=== PATIENT | female | born 1935 | race Caucasian/White ===

== ENCOUNTER → 2016-07-02 | Outpatient (CLI) | payer MEDICARE ==
[2016-07-02 09:57] LABS: Anisocytosis Slight; Basophils % (A) 0 %; CH 33.2; CHCM 29.4; Calcium 9.2 mg/dL (8.4-10.2); Eosinophils # (A) 0.1 k/uL (0-0.7); Eosinophils % (A) 1 %; HDW 2.79; HGB 8.8 gm/dL (11.4-16.0); Hypochromasia Marked; Luc # (Auto) 0.17; Luc % (Auto) 3; Lymphocytes # (A) 1.1 k/uL (1.0-4.8); Lymphocytes % (A) 17 %; MCH 33.4 pg (25.0-35.0); MCHC 29.5 g/dL (31.0-37.0); MCV 113.2 fL (80.0-100.0); Macrocytosis Marked; Mean Platelet Volume 9.4; Monocytes # (A) 0.4 k/uL (0-1.0); Monocytes % (A) 6 %; Neutrophils # (A) 4.9 k/uL (1.3-7.7); Neutrophils % (A) 74 %; Potassium 4.9 mmol/L (3.5-5.1); RBC 2.65 m/uL (3.80-5.40); Total Bilirubin 0.7 mg/dL (0.2-1.3); WBC 6.6 k/uL (3.8-10.6); WBC (Perox) 6.64
[2016-07-02 11:24] LABS: Erythrocyte Sedimentation Rate 40 mm/hr (0-20)
== END ==
LOC: LABWHC1 09:22
PROVIDERS: ATTEND Internal Medicine Geriatric Medicine
DX: M06.9 Rheumatoid arthritis, unspecified (principal)
CPT/HCPCS: 36415; 80053; 85025; 85652

== ENCOUNTER → 2016-07-04 | Outpatient (CLI) | payer MEDICARE, OTHER ==
--- NOTE | 2016-07-04 12:56 | CT ---
EXAMINATION TYPE: CT sinus wo con DATE OF EXAM: 07/04/2016 12:48 PM COMPARISON: NONE HISTORY: Chronic sinusitis CT DLP: 590.10 mGycm Automated exposure control for dose reduction was used. FINDINGS: Visualized intracranial structures are unremarkable. The soft tissues are normal. There is been a previous anterior ethmoidectomy on the left. There has been a previous Méndez-Suman p rocedure on the left. There is some minimal mucoperiosteal thickening involving the inferior aspect o f both maxillary sinuses. The right infundibulum is patent. No bony destructive lesion is seen. IMPRESSION: 1. POSTSURGICAL CHANGE. 2. 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
== END | disposition home or self-care (01) ==
LOC: RADCTMAIN 12:23
PROVIDERS: ATTEND Otolaryngology
DX: J34.89 Other specified disorders of nose and nasal sinuses (principal)
CPT/HCPCS: 70486

== ENCOUNTER → 2016-09-09 | Outpatient (CLI) | payer MEDICARE, OTHER ==
[2016-09-09 13:05] LABS: Calcium 8.8 mg/dL (8.4-10.2); Potassium 4.3 mmol/L (3.5-5.1); Total Bilirubin 0.4 mg/dL (0.2-1.3); Total Protein 6.5 g/dL (6.3-8.2)
[2016-09-09 13:11] LABS: Anisocytosis Slight; CH 33.3; CHCM 29.5; HCT 25.6 % (34.0-46.0); HDW 3.03; HGB 7.7 gm/dL (11.4-16.0); Hypochromasia Marked; MCH 34.2 pg (25.0-35.0); MCHC 30.2 g/dL (31.0-37.0); MCV 113.4 fL (80.0-100.0); Macrocytosis Marked; Mean Platelet Volume 8.7; RBC 2.26 m/uL (3.80-5.40); RDW 19.2 % (11.5-15.5); WBC (Perox) 7.12
[2016-09-09 13:15] LABS: % Iron Saturation 19.3 % (20-50)
[2016-09-09 15:40] LABS: Add Differential Manual Differential
[2016-09-09 15:47] LABS: Band Neutrophils % 3.5 %; Nucleated Red Blood Cells 2 /100 WBC (0-0); Total Cells Counted 200; WBC 6.9 k/uL (3.8-10.6)
[2016-09-09 15:48] LABS: Large Platelets Present; Manual Review Performed; Polychromasia Present; Toxic Granulation Present
== END ==
LOC: LABWHC1 11:50
PROVIDERS: ATTEND Internal Medicine Geriatric Medicine
DX: D50.9 Iron deficiency anemia, unspecified (principal); N18.9 Chronic kidney disease, unspecified; E78.5 Hyperlipidemia, unspecified; I49.9 Cardiac arrhythmia, unspecified
CPT/HCPCS: 36415; 80053; 80061; 82728; 83540; 83550; 84439; 84443; 85025

== ENCOUNTER → 2016-10-06 | Outpatient (CLI) | payer MEDICARE, OTHER ==
[2016-10-06 13:46] LABS: Calcium 10.5 mg/dL (8.4-10.2); Potassium 4.5 mmol/L (3.5-5.1); Total Bilirubin 0.9 mg/dL (0.2-1.3)
[2016-10-06 13:49] LABS: Anisocytosis Slight; Basophils % (A) 0 %; CH 33.6; CHCM 31.2; Eosinophils # (A) 0.1 k/uL (0-0.7); Eosinophils % (A) 2 %; HCT 29.6 % (34.0-46.0); HDW 2.93; Hypochromasia Slight; Luc # (Auto) 0.08; Luc % (Auto) 2; Lymphocytes # (A) 0.7 k/uL (1.0-4.8); Lymphocytes % (A) 20 %; MCH 33.6 pg (25.0-35.0); MCHC 31.2 g/dL (31.0-37.0); Macrocytosis Marked; Mean Platelet Volume 10.4; Monocytes # (A) 0.1 k/uL (0-1.0); Monocytes % (A) 3 %; Neutrophils # (A) 2.5 k/uL (1.3-7.7); Neutrophils % (A) 74 %; RBC 2.74 m/uL (3.80-5.40); WBC 3.4 k/uL (3.8-10.6); WBC (Perox) 3.59
[2016-10-06 14:24] LABS: HGB 9.2 gm/dL (11.4-16.0)
[2016-10-06 15:06] LABS: Tear Drop Cells Present
== END | disposition home or self-care (01) ==
LOC: LABWHC1 12:21
PROVIDERS: ATTEND Internal Medicine Geriatric Medicine
DX: D50.9 Iron deficiency anemia, unspecified (principal)
CPT/HCPCS: 36415; 80053; 85025

== ENCOUNTER → 2016-10-28 | Outpatient (CLI) | payer MEDICARE, OTHER ==
[2016-10-28 10:42] LABS: Anisocytosis Slight; Basophils % (A) 0 %; CH 32.3; CHCM 29.5; Eosinophils % (A) 0 %; HCT 32.6 % (34.0-46.0); HDW 3.07; HGB 10.1 gm/dL (11.4-16.0); Hypochromasia Marked; Luc # (Auto) 0.09; Luc % (Auto) 2; Lymphocytes # (A) 1.4 k/uL (1.0-4.8); Lymphocytes % (A) 31 %; MCH 34.2 pg (25.0-35.0); MCHC 31.1 g/dL (31.0-37.0); MCV 109.9 fL (80.0-100.0); Macrocytosis Marked; Mean Platelet Volume 7.5; Monocytes # (A) 0.2 k/uL (0-1.0); Monocytes % (A) 5 %; Neutrophils # (A) 2.8 k/uL (1.3-7.7); Neutrophils % (A) 62 %; RBC 2.96 m/uL (3.80-5.40); WBC 4.5 k/uL (3.8-10.6); WBC (Perox) 4.63
[2016-10-28 11:52] LABS: Ovalocytes Present
[2016-10-28 11:53] LABS: Tear Drop Cells Present
== END | disposition home or self-care (01) ==
LOC: LABWHC1 09:43
PROVIDERS: ATTEND Internal Medicine Geriatric Medicine
DX: D50.9 Iron deficiency anemia, unspecified (principal)
CPT/HCPCS: 36415; 85025

== ENCOUNTER → 2016-12-16 | Outpatient (CLI) | payer MEDICARE, OTHER ==
[2016-12-16 14:22] LABS: Anisocytosis Slight; CH 34.1; HCT 33.5 % (34.0-46.0); HDW 3.15; Hypochromasia Marked; MCH 34.2 pg (25.0-35.0); MCHC 29.8 g/dL (31.0-37.0); MCV 114.6 fL (80.0-100.0); Macrocytosis Marked; Mean Platelet Volume 8.7; RBC 2.93 m/uL (3.80-5.40); RDW 19.8 % (11.5-15.5); WBC 7.7 k/uL (3.8-10.6); WBC (Perox) 7.85
[2016-12-16 15:14] LABS: Add Differential Manual Differential
[2016-12-16 15:18] LABS: Metamyelocytes % 2 %; Myelocytes % 3 %; Nucleated Red Blood Cells 0 /100 WBC (0-0); Total Cells Counted 200
[2016-12-16 15:19] LABS: Manual Review Performed; Ovalocytes Present
[2016-12-16 15:20] LABS: Polychromasia Present; Tear Drop Cells Present
== END | disposition home or self-care (01) ==
LOC: LABWHC1 13:14
PROVIDERS: ATTEND Internal Medicine Geriatric Medicine
DX: D61.818 Other pancytopenia (principal)
CPT/HCPCS: 36415; 85025

== ENCOUNTER → 2017-01-01 | Outpatient (CLI) | payer MEDICARE, OTHER ==
--- NOTE | 2017-01-01 14:17 | BD ---
EXAMINATION TYPE: MG DEXA axial skeleton. DATE OF EXAM: 01/01/2017 COMPARISON: 12.27.2015 DEXA bone scan CLINICAL HISTORY: z79.52 longterm use of cortico steroids Height: 59.5 Weight: 143 FRAX RISK QUESTIONS: Alcohol (3 or more units per day): NO Family History (Parent hip fracture): NO Glucocorticoids (More than 3mos): YES (Ex: prednisone, prednisolone, methylprednisolone, dexamethasone, and hydrocortisone). History of Fracture in Adulthood: YES Secondary Osteoporosis: 1. Type 1 Diabetes: NO 2. Hyperthyroidism: NO 3. Menopause before 45: YES 4. Malnutrition: NO 5. Chronic liver disease: NO Rheumatoid Arthritis: YES Current Tobacco Use: NO RISK FACTORS HISTORY OF: Hip Fracture (): LT FEMUR, RT HIP.... 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 Diet low in dairy products/other sources of calcium: YES Postmenopausal woman: TOTAL HYST AT AGE 44 Take estrogen and/or progesterone medications: TOOK FOR SHORT TIME BUT NONE NOW Lost more than 2 inches in height since high school: YES Frequent falls: UNSTEADY Poor Health: FRAIL Hyperparathyroidism: NO Adrenal Insufficiency: NO MEDICATIONS: Prednisone or other steroids: PREDNISONE 5 MG DAILY, How Lon+ YRS Osteoporosis Medications: TOOK IN PAST....NOTHING FOR 5 YRS Additional Medications: BP MEDS, METHOTREXATE FOR MANY YRS....STOPPED 1 MONTH AGO, VIT D AND CALCIUM Additional History: RA, HYPERTENSION, RT TOTAL HIP, LT TOTAL KNEE.....SCREWS IN LT FEMUR FROM FX, COM PRESSION FX IN SPINE. EXAM MEASUREMENTS: Bone mineral densitometry was performed using the [employer] System. SEVERAL COMPRESSION FXS IN LUMBAR SPINE......LUMBAR BONE DENSITY NOT PREFORMED Bone mineral density about the L hip (g/cm2): 0.619 T Score values are as follows: -----L Neck: -2.9 -----L Total: -3.1 Bone mineral density has: Decreased -5.5% since study of: 12.27.2015 FRAX%'S: THERE IS A 53.2% CHANCE OF A MAJOR OSTEOPOROTIC FX AND A 26.1% FOR HIP FX......PROBABILITY IN 10 YRS TIME IMPRESSION: Osteoporosis (T Score less than -2.5) as noted by T Score values at the left hip remains present. Bon e density continues to decrease or diminish from prior. There is increased fracture risk and therapy is usually indicated based on age. Re-Screen 1-2 years . NOTE: T-SCORE=SD OF THE YOUNG ADULT MEAN.
== END ==
LOC: RADBDWWP 12:13
PROVIDERS: ATTEND Internal Medicine Rheumatology
DX: Z51.81 Encounter for therapeutic drug level monitoring (principal); Z79.52 Long term (current) use of systemic steroids; M81.0 Age-related osteoporosis without current pathological fracture
CPT/HCPCS: 77080

== ENCOUNTER → 2017-01-19 | Outpatient (CLI) | payer MEDICARE, OTHER ==
[~2017-01-19] MED LIST: DENOSUMAB 60 MG/ML 1 ML SYRINGE SQ ONE
[2017-01-19 13:44] VITALS: BP 129/73; PULSE 71; RESP 18; TEMP 98.6
== END | disposition home or self-care (01) ==
LOC: PROCWHC3 13:21
PROVIDERS: ATTEND Internal Medicine Geriatric Medicine
DX: M81.0 Age-related osteoporosis without current pathological fracture (principal)
CPT/HCPCS: 96372; J0897

== ENCOUNTER → 2017-03-07 | Outpatient (CLI) | payer MEDICARE, OTHER ==
[2017-03-07 12:08] LABS: ALT 27 U/L (9-52); AST 25 U/L (14-36); Blood Urea Nitrogen 31 mg/dL (7-17); C Reactive Protein <5.0 mg/L (<10.0); Calcium 8.8 mg/dL (8.4-10.2); Non-African American GFR(MDRD) 43 (>60 ml/min/1.73 sqM); Total Bilirubin 0.6 mg/dL (0.2-1.3)
[2017-03-07 12:15] LABS: Basophils % (A) 0 %; CH 32.2; CHCM 30.2; Eosinophils # (A) 0.1 k/uL (0-0.7); Eosinophils % (A) 1 %; HCT 40.8 % (34.0-46.0); HDW 2.51; HGB 12.4 gm/dL (11.4-16.0); Hypochromasia Moderate; Luc # (Auto) 0.07; Luc % (Auto) 1; Lymphocytes # (A) 1.5 k/uL (1.0-4.8); Lymphocytes % (A) 19 %; MCH 32.6 pg (25.0-35.0); MCHC 30.5 g/dL (31.0-37.0); MCV 106.9 fL (80.0-100.0); Macrocytosis Moderate; Mean Platelet Volume 8.1; Monocytes # (A) 0.3 k/uL (0-1.0); Monocytes % (A) 4 %; Neutrophils # (A) 5.9 k/uL (1.3-7.7); Neutrophils % (A) 75 %; RBC 3.82 m/uL (3.80-5.40); RDW 13.1 % (11.5-15.5); WBC 7.8 k/uL (3.8-10.6); WBC (Perox) 7.58
[2017-03-07 14:05] LABS: Erythrocyte Sedimentation Rate 4 mm/hr (0-20)
== END | disposition home or self-care (01) ==
LOC: LABWHC1 11:17
PROVIDERS: ATTEND Internal Medicine Rheumatology
DX: E55.9 Vitamin D deficiency, unspecified (principal); E21.0 Primary hyperparathyroidism; E80.7 Disorder of bilirubin metabolism, unspecified; N18.9 Chronic kidney disease, unspecified; D64.9 Anemia, unspecified; M25.50 Pain in unspecified joint; R77.0 Abnormality of albumin; Z79.1 Long term (current) use of non-steroidal anti-inflammatories (NSAID)
CPT/HCPCS: 36415; 82040; 82247; 82306; 82310; 82565; 83970; 84450; 84460; 84520; 85025; 85652; 86140

== ENCOUNTER → 2017-05-04 | Outpatient (CLI) | payer MEDICARE, OTHER ==
[2017-05-04 13:23] LABS: Basophils % (A) 0 %; Eosinophils % (A) 1 %; HCT 41.9 % (34.0-46.0); Hypochromasia Slight; Lymphocytes # (A) 1.2 k/uL (1.0-4.8); Lymphocytes % (A) 20 %; MCH 32.9 pg (25.0-35.0); MCHC 31.1 g/dL (31.0-37.0); MCV 105.8 fL (80.0-100.0); Macrocytosis Moderate; Mean Platelet Volume 8.5; Monocytes # (A) 0.2 k/uL (0-1.0); Monocytes % (A) 4 %; Neutrophils # (A) 4.4 k/uL (1.3-7.7); Neutrophils % (A) 74 %; RBC 3.96 m/uL (3.80-5.40); RDW 14.2 % (11.5-15.5)
[2017-05-04 13:25] LABS: Platelet Count 89 k/uL (150-450)
[2017-05-04 13:53] LABS: Albumin 4.2 g/dL (3.5-5.0); Potassium 5.7 mmol/L (3.5-5.1)
[2017-05-04 14:10] LABS: T4, Free (Free Thyroxine) 1.15 ng/dL (0.78-2.19)
[2017-05-04 14:16] LABS: Calcium 9.4 mg/dL (8.4-10.2); Total Bilirubin 0.6 mg/dL (0.2-1.3); Total Protein 6.9 g/dL (6.3-8.2)
[2017-05-04 14:56] LABS: Erythrocyte Sedimentation Rate 2 mm/hr (0-20)
== END | disposition home or self-care (01) ==
LOC: LABWHC1 12:17
PROVIDERS: ATTEND Internal Medicine Geriatric Medicine
DX: E21.3 Hyperparathyroidism, unspecified (principal); M06.9 Rheumatoid arthritis, unspecified; R00.1 Bradycardia, unspecified
CPT/HCPCS: 36415; 80053; 83970; 84439; 84443; 85025; 85652

== ENCOUNTER → 2017-12-03 | Outpatient (CLI) | payer MEDICARE, OTHER ==
[2017-12-03 09:50] LABS: Basophils % (A) 0 %; Eosinophils # (A) 0.1 k/uL (0-0.7); Eosinophils % (A) 1 %; HCT 41.8 % (34.0-46.0); HGB 13.4 gm/dL (11.4-16.0); Hypochromasia Slight; Lymphocytes # (A) 2.7 k/uL (1.0-4.8); Lymphocytes % (A) 33 %; MCH 32.3 pg (25.0-35.0); MCHC 31.9 g/dL (31.0-37.0); MCV 101.1 fL (80.0-100.0); Macrocytosis Slight; Mean Platelet Volume 8.5; Monocytes # (A) 0.6 k/uL (0-1.0); Monocytes % (A) 7 %; Neutrophils # (A) 4.8 k/uL (1.3-7.7); Neutrophils % (A) 58 %; RBC 4.13 m/uL (3.80-5.40); RDW 13.5 % (11.5-15.5); WBC 8.2 k/uL (3.8-10.6)
[2017-12-03 10:46] LABS: ALT 23 U/L (9-52); AST 25 U/L (14-36); Blood Urea Nitrogen 55 mg/dL (7-17); C Reactive Protein <5.0 mg/L (<10.0)
[2017-12-03 10:48] LABS: Anisocytosis (M) Present; Poikilocytosis (M) Present
[2017-12-03 10:49] LABS: Platelet Count 98 k/uL (150-450)
[2017-12-03 11:34] LABS: Erythrocyte Sedimentation Rate 2 mm/hr (0-20)
== END | disposition home or self-care (01) ==
LOC: LABWHC1 09:11
PROVIDERS: ATTEND Internal Medicine Rheumatology
DX: M05.79 Rheumatoid arthritis with rheumatoid factor of multiple sites without organ or systems involvement (principal)
CPT/HCPCS: 36415; 82565; 84450; 84460; 84520; 85025; 85652; 86140

== ENCOUNTER → 2018-02-01 | Outpatient (CLI) | payer MEDICARE, OTHER ==
[2018-02-01 12:51] LABS: Basophils % (A) 0 %; Eosinophils # (A) 0.1 k/uL (0-0.7); Eosinophils % (A) 1 %; HCT 41.2 % (34.0-46.0); HGB 12.8 gm/dL (11.4-16.0); Lymphocytes % (A) 17 %; MCH 31.4 pg (25.0-35.0); MCV 101.4 fL (80.0-100.0); Macrocytosis Slight; Mean Platelet Volume 8.2; Monocytes # (A) 1.4 k/uL (0-1.0); Monocytes % (A) 12 %; Neutrophils # (A) 8.2 k/uL (1.3-7.7); Neutrophils % (A) 70 %; Platelet Count 109 k/uL (150-450); RBC 4.06 m/uL (3.80-5.40); WBC 11.8 k/uL (3.8-10.6)
== END | disposition home or self-care (01) ==
LOC: LABWHC1 10:58
PROVIDERS: ATTEND Internal Medicine Rheumatology
DX: M25.50 Pain in unspecified joint (principal)
CPT/HCPCS: 36415; 82565; 84450; 84460; 84520; 85025

== ENCOUNTER 2018-07-03 09:52 | Inpatient (IN) | payer MEDICARE, OTHER ==
[2018-07-03] MEDS ORDERED: ACETAMINOPHEN TAB 325 MG TAB PO STA (10:06)
[2018-07-03] MEDS: SODIUM CHLORIDE 0.9% 500 ML 500 ML IV SCH ×2 (10:15→12:14)
--- NOTE | 2018-07-03 10:22 | ED ---
General Adult HPI - General Chief complaint: Weakness Stated complaint: Weakness Time Seen by Provider: 07/03/18 09:55 Source: patient, EMS, RN notes reviewed Mode of arrival: EMS Limitations: no limitations - History of Present Illness Initial comments: This is an 82-year-old female who presents to emergency department complaining of feeling weaker and vomiting for the last 2 days. Patient states she was unable to get out of bed all day yesterday and today so she hasn't drink anything or eat anything. Patient states she was recently diagnosed with a urinary tract infection and put on doxycycline. Patient denies chest pain shortness of breath or difficulty breathing. Patient denies any headache patient denies numbness or focal weakness. Patient states she's felt warm but has not taken her temperature. Patient denies any abdominal pain. Patient states she does have some lower back pain. Patient denies any fall or injury. - Related Data Home Medications Medication Instructions Recorded Confirmed Zolpidem Tartrate 10 mg PO HS 01/19/17 07/03/18 Baclofen 5 mg PO BID PRN 07/03/18 07/03/18 Doxycycline Hyclate 100 mg PO BID 07/03/18 07/03/18 traMADol HCL [Ultram] 50 mg PO Q6HR PRN 07/03/18 07/03/18 Previous Rx's Medication Instructions Recorded Allopurinol [Zyloprim] 100 mg PO DAILY #60 tab 09/11/14 Atenolol [Tenormin] 50 mg PO DAILY #60 tab 09/11/14 predniSONE 5 mg PO DAILY #60 tab 09/11/14 Allergies Allergy/AdvReac Type Severity Reaction Status Date / Time codeine Allergy Rash/Hives Verified 07/03/18 10:27 nitrofurantoin Allergy Rash/Hives Verified 07/03/18 10:27 macrocrystalline [From Macrodantin] Penicillins Allergy Anaphylaxis Verified 07/03/18 10:27 Review of Systems ROS Statement: Those systems with pertinent positive or pertinent negative responses have been documented in the HPI. ROS Other: All systems not noted in ROS Statement are negative. Past Medical History Past Medical History: Coronary Artery Disease (CAD), Deep Vein Thrombosis (DVT), Hypertension, Renal Disease, Rheumatoid Arthritis (RA) Additional Past Medical History / Comment(s): UTI History of Any Multi-Drug Resistant Organisms: None Reported Past Surgical History: Hysterectomy, Joint Replacement, Orthopedic Surgery Additional Past Surgical History / Comment(s): left knee replacement, LEFT kidney removed, RIGHT HIP REPAIRED 06/2014 Past Anesthesia/Blood Transfusion Reactions: No Reported Reaction Additional Past Anesthesia/Blood Transfusion Reaction / Comment(s): pt stated that she was given blood before and she went into "pulmonary edema." Past Psychological History: No Psychological Hx Reported Smoking Status: Never smoker Past Alcohol Use History: None Reported Past Drug Use History: None Reported - Past Family History Mother Family Medical History: Coronary Artery Disease (CAD) Brother(s) Family Medical History: Cancer General Exam - General Exam Comments Initial Comments: GENERAL: Patient is well-developed and well-nourished. Patient is nontoxic and well- hydrated and is in mild distress. ENT: Neck is soft and supple. No significant lymphadenopathy is noted. Oropharynx is clear. Dry mucous membranes. Neck has full range of motion without eliciting any pain. EYES: The sclera were anicteric and conjunctiva were pink and moist. Extraocular movements were intact and pupils were equal round and reactive to light. Eyelids were unremarkable. PULMONARY: Unlabored respirations. Good breath sounds bilaterally. No audible rales rhonchi or wheezing was noted. CARDIOVASCULAR: Patient is tachycardic at 120 beats a minute ABDOMEN: Soft and nontender with normal bowel sounds. No palpable organomegaly was noted. There is no palpable pulsatile mass. SKIN: Skin is clear with no lesions or rashes and otherwise unremarkable. NEUROLOGIC: Patient is alert and oriented x3. Cranial nerves II through XII are grossly intact. Motor and sensory are also intact. Normal speech, volume and content. Symmetrical smile. MUSCULOSKELETAL: Normal extremities with adequate strength and full range of motion. No lower extremity swelling or edema. No calf tenderness. Patient has pain in the paraspinous muscles in the lumbar region. LYMPHATICS: No significant lymphadenopathy is noted PSYCHIATRIC: Normal psychiatric evaluation. Limitations: no limitations Course Vital Signs 07/03/18 07/03/18 09:53 10:03 Temperature 98.7 F 99.9 F H Pulse Rate 121 H Respiratory 18 Rate Blood Pressure 181/71 O2 Sat by Pulse 98 Oximetry Medical Decision Making - Medical Decision Making EKG shows sinus tachycardia at [address] interval 176 dresses 66 QT interval 312 QTC is 4:30. Patient's EKG shows no ST segment elevation or depression no T-wave abnormalities noted. Lumbar spine shows old compression fracture of T12. Chest x-ray shows no acute abnormality. I started the patient on Rocephin 2 g in the emergency department. I talk with Dr. Beaulieu he agreed to accept the admission I wrote admitting orders I consulted Dr. Ambrose and Dr. Hinds for infectious disease. - Lab Data Result diagrams: 07/03/18 10:05 07/03/18 10:05 Lab Results 07/03/18 07/03/18 07/03/18 Range/Units 10:05 10:05 10:05 WBC 39.9 H (3.8-10.6) k/uL RBC 4.27 (3.80-5.40) m/uL Hgb 13.1 (11.4-16.0) gm/dL Hct 42.8 (34.0-46.0) % MCV 100.2 H (80.0-100.0) fL MCH 30.7 (25.0-35.0) pg MCHC 30.7 L (31.0-37.0) g/dL RDW 14.2 (11.5-15.5) % Plt Count 72 L (150-450) k/uL Neutrophils % 88 % Lymphocytes % 6 % Monocytes % 4 % Eosinophils % 0 % Basophils % 1 % Neutrophils # 35.2 H (1.3-7.7) k/uL Lymphocytes # 2.2 (1.0-4.8) k/uL Monocytes # 1.7 H (0-1.0) k/uL Eosinophils # 0.1 (0-0.7) k/uL Basophils # 0.3 H (0-0.2) k/uL Manual Slide Review Performed Macrocytosis Slight PT (9.0-12.0) sec INR (<1.2) APTT (22.0-30.0) sec Sodium 142 (137-145) mmol/L Potassium 5.5 H (3.5-5.1) mmol/L Chloride 115 H (98-107) mmol/L Carbon Dioxide 15 L (22-30) mmol/L Anion Gap 12 mmol/L BUN 74 H (7-17) mg/dL Creatinine 5.22 H (0.52-1.04) mg/dL Est GFR (CKD-EPI)AfAm 8 (>60 ml/min/1.73 sqM) Est GFR (CKD-EPI)NonAf 7 (>60 ml/min/1.73 sqM) Glucose 97 (74-99) mg/dL Plasma Lactic Acid Amaury 1.8 (0.7-2.0) mmol/L Calcium 8.8 (8.4-10.2) mg/dL Total Bilirubin 0.7 (0.2-1.3) mg/dL AST 136 H (14-36) U/L ALT 108 H (9-52) U/L Alkaline Phosphatase 115 (38-126) U/L Troponin I (0.000-0.034) ng/mL Total Protein 5.9 L (6.3-8.2) g/dL Albumin 3.2 L (3.5-5.0) g/dL Urine Color Urine Appearance (Clear) Urine pH (5.0-8.0) Ur Specific [place] (1.001-1.035) Urine Protein (Negative) Urine Glucose (UA) (Negative) Urine Ketones (Negative) Urine Blood (Negative) Urine Nitrite (Negative) Urine Bilirubin (Negative) Urine Urobilinogen (<2.0) mg/dL Ur Leukocyte Esterase (Negative) Urine RBC (0-5) /hpf Urine WBC (0-5) /hpf Urine WBC Clumps (None) /hpf Urine Bacteria (None) /hpf Influenza Type A RNA (Not Detectd) Influenza Type B (PCR) (Not Detectd) 07/03/18 07/03/18 07/03/18 Range/Units 10:05 10:05 10:15 WBC (3.8-10.6) k/uL RBC (3.80-5.40) m/uL Hgb (11.4-16.0) gm/dL Hct (34.0-46.0) % MCV (80.0-100.0) fL MCH (25.0-35.0) pg MCHC (31.0-37.0) g/dL RDW (11.5-15.5) % Plt Count (150-450) k/uL Neutrophils % % Lymphocytes % % Monocytes % % Eosinophils % % Basophils % % Neutrophils # (1.3-7.7) k/uL Lymphocytes # (1.0-4.8) k/uL Monocytes # (0-1.0) k/uL Eosinophils # (0-0.7) k/uL Basophils # (0-0.2) k/uL Manual Slide Review Macrocytosis PT 11.9 (9.0-12.0) sec INR 1.1 (<1.2) APTT 26.0 (22.0-30.0) sec Sodium (137-145) mmol/L Potassium (3.5-5.1) mmol/L Chloride (98-107) mmol/L Carbon Dioxide (22-30) mmol/L Anion Gap mmol/L BUN (7-17) mg/dL Creatinine (0.52-1.04) mg/dL Est GFR (CKD-EPI)AfAm (>60 ml/min/1.73 sqM) Est GFR (CKD-EPI)NonAf (>60 ml/min/1.73 sqM) Glucose (74-99) mg/dL Plasma Lactic Acid Amaury (0.7-2.0) mmol/L Calcium (8.4-10.2) mg/dL Total Bilirubin (0.2-1.3) mg/dL AST (14-36) U/L ALT (9-52) U/L Alkaline Phosphatase (38-126) U/L Troponin I 0.238 H* (0.000-0.034) ng/mL Total Protein (6.3-8.2) g/dL Albumin (3.5-5.0) g/dL Urine Color Urine Appearance (Clear) Urine pH (5.0-8.0) Ur Specific [place] (1.001-1.035) Urine Protein (Negative) Urine Glucose (UA) (Negative) Urine Ketones (Negative) Urine Blood (Negative) Urine Nitrite (Negative) Urine Bilirubin (Negative) Urine Urobilinogen (<2.0) mg/dL Ur Leukocyte Esterase (Negative) Urine RBC (0-5) /hpf Urine WBC (0-5) /hpf Urine WBC Clumps (None) /hpf Urine Bacteria (None) /hpf Influenza Type A RNA Not Detected (Not Detectd) Influenza Type B (PCR) Not Detected (Not Detectd) 07/03/18 Range/Units 11:50 WBC (3.8-10.6) k/uL RBC (3.80-5.40) m/uL Hgb (11.4-16.0) gm/dL Hct (34.0-46.0) % MCV (80.0-100.0) fL MCH (25.0-35.0) pg MCHC (31.0-37.0) g/dL RDW (11.5-15.5) % Plt Count (150-450) k/uL Neutrophils % % Lymphocytes % % Monocytes % % Eosinophils % % Basophils % % Neutrophils # (1.3-7.7) k/uL Lymphocytes # (1.0-4.8) k/uL Monocytes # (0-1.0) k/uL Eosinophils # (0-0.7) k/uL Basophils # (0-0.2) k/uL Manual Slide Review Macrocytosis PT (9.0-12.0) sec INR (<1.2) APTT (22.0-30.0) sec Sodium (137-145) mmol/L Potassium (3.5-5.1) mmol/L Chloride (98-107) mmol/L Carbon Dioxide (22-30) mmol/L Anion Gap mmol/L BUN (7-17) mg/dL Creatinine (0.52-1.04) mg/dL Est GFR (CKD-EPI)AfAm (>60 ml/min/1.73 sqM) Est GFR (CKD-EPI)NonAf (>60 ml/min/1.73 sqM) Glucose (74-99) mg/dL Plasma Lactic Acid Amaury (0.7-2.0) mmol/L Calcium (8.4-10.2) mg/dL Total Bilirubin (0.2-1.3) mg/dL AST (14-36) U/L ALT (9-52) U/L Alkaline Phosphatase (38-126) U/L Troponin I (0.000-0.034) ng/mL Total Protein (6.3-8.2) g/dL Albumin (3.5-5.0) g/dL Urine Color Yellow Urine Appearance Turbid H (Clear) Urine pH 6.0 (5.0-8.0) Ur Specific [place] 1.014 (1.001-1.035) Urine Protein 2+ H (Negative) Urine Glucose (UA) Negative (Negative) Urine Ketones Negative (Negative) Urine Blood Moderate H (Negative) Urine Nitrite Negative (Negative) Urine Bilirubin Negative (Negative) Urine Urobilinogen <2.0 (<2.0) mg/dL Ur Leukocyte Esterase Large H (Negative) Urine RBC 118 H (0-5) /hpf Urine WBC >182 H (0-5) /hpf Urine WBC Clumps Many H (None) /hpf Urine Bacteria Many H (None) /hpf Influenza Type A RNA (Not Detectd) Influenza Type B (PCR) (Not Detectd) Critical Care Time Critical Care Time: Yes Total Critical Care Time: 40 Disposition Clinical Impression: Pyelonephritis, Acute renal failure, Elevated troponin, Sepsis Disposition: ADMITTED IP TO THIS HOSP Referrals: Jude Lyles MD [Primary Care Provider] - 1-2 days Time of Disposition: 14:31
[2018-07-03 10:23] LABS: Basophils # (A) 0.3 k/uL (0-0.2); Basophils % (A) 1 %; Eosinophils # (A) 0.1 k/uL (0-0.7); Eosinophils % (A) 0 %; HCT 42.8 % (34.0-46.0); HGB 13.1 gm/dL (11.4-16.0); Lymphocytes # (A) 2.2 k/uL (1.0-4.8); Lymphocytes % (A) 6 %; MCH 30.7 pg (25.0-35.0); MCHC 30.7 g/dL (31.0-37.0); MCV 100.2 fL (80.0-100.0); Macrocytosis Slight; Mean Platelet Volume 9.2; Monocytes # (A) 1.7 k/uL (0-1.0); Monocytes % (A) 4 %; Neutrophils # (A) 35.2 k/uL (1.3-7.7); Neutrophils % (A) 88 %; RBC 4.27 m/uL (3.80-5.40); RDW 14.2 % (11.5-15.5); WBC 39.9 k/uL (3.8-10.6)
[2018-07-03 10:34] LABS: INR 1.1 (<1.2); Prothrombin Time 11.9 sec (9.0-12.0)
[2018-07-03 10:38] LABS: Albumin 3.2 g/dL (3.5-5.0); Calcium 8.8 mg/dL (8.4-10.2); Potassium 5.5 mmol/L (3.5-5.1); Total Bilirubin 0.7 mg/dL (0.2-1.3); Total Protein 5.9 g/dL (6.3-8.2)
[2018-07-03 10:43] LABS: Platelet Count 72 k/uL (150-450)
--- NOTE | 2018-07-03 11:28 | XR ---
EXAMINATION TYPE: XR chest 2V DATE OF EXAM: 07/03/2018 HISTORY: Fever. REFERENCE: Previous study dated 09/08/2014. FINDINGS: The right hemidiaphragm is mildly silhouetted. I could not exclude an early right middle lo be infiltrate. I could not exclude a small right effusion. The left lung is clear. Heart size upper l imits of normal. IMPRESSION: I CANNOT EXCLUDE A DEVELOPING INFILTRATE IN THE RIGHT MIDDLE LOBE.
--- NOTE | 2018-07-03 11:30 | XR ---
EXAMINATION TYPE: XR lumbosacral spine min 4V , 5 VIEWS DATE OF EXAM ORDERED: 07/03/2018 HISTORY: Pain. COMPARISON: Previous study dated 12/08/2016. FINDINGS: There has been previous left upper quadrant surgery. There are chronic wedge compression fractures at L1 and L5. The L1 fracture is progressed slightly. T he L5 fracture appears stable. Alignment appears normal. There is mild, bilateral facet arthropathy. The pedicles are intact. There is a minimal dextroscoliosis. IMPRESSION: 1. CHRONIC WEDGE COMPRESSION FRACTURES OF L1 AND L5. 2. MILD DEGENERATIVE CHANGE. 3. NO DEFINITE ACUTE INTERVAL CHANGE
[2018-07-03 12:50] LABS: Appearance,Urine Turbid (Clear); Bacteria,Urine Many /hpf; Bilirubin,Urine Negative (Negative); Blood,Urine Moderate (Negative); Color,Urine Yellow; Glucose,Urine (UA) Negative (Negative); Ketones,Urine Negative (Negative); Leukocyte Esterase,Urine Large (Negative); Nitrite,Urine Negative (Negative); Protein,Urine 2+ (Negative); RBC,Urine 118 /hpf (0-5); Specific Gravity,Urine 1.014 (1.001-1.035); Urobilinogen,Urine <2.0 mg/dL (<2.0); WBC,Urine >182 /hpf (0-5)
[2018-07-03] MEDS ORDERED: SODIUM CHLORIDE 0.9% 500 ML 500 ML IV ONE (13:32)
--- NOTE | 2018-07-03 14:12 | CT ---
EXAMINATION TYPE: CT abdomen pelvis wo con DATE OF EXAM: 07/03/2018 COMPARISON: NONE HISTORY: UTI/BACK PAIN/HX [address] DLP: 482.5 mGycm Automated exposure control for dose reduction was used. FINDINGS: There is dependent atelectasis in the dependent portions of the lungs. There are small, christelle ateral effusions. There is no pericardial effusion. The heart is mildly enlarged. Within the abdomen, there is a gallstone within the gallbladder. There is evidence of old granulomato us disease within the spleen. The liver is unremarkable. Both adrenal glands are normal. There is been a previous left-sided nephrectomy. The right kidney is mildly heterogenous. I could not exclude some cystic change. The pancreas is unremarkable. There is moderate atheromatous calcification of the visualized arterial tree. There is no significant retroperitoneal, inguinal or iliac adenopathy. There is a Morrow catheter within the bladder. There are scattered diverticula along the left side of the colon. There is no radiographic evidence o f diverticulitis. The appendix is not visualized with certainty. Small bowel loops are of normal caliber. No free fluid and no free air is seen. There is a dynamic hip pinning in place on the right. There is wedging of the L5 vertebral body which is wedged by approximately 50%. This appears chronic. There is also wedge compression fracture of T12 and L1. These also appear chronic. There is degenera tive disc disease, facet arthropathy and mild hypertrophic spondylosis within the spine. IMPRESSION: #1 TINY BILATERAL EFFUSIONS. 2. CARDIOMEGALY. 3. CHOLELITHIASIS. 4. HETEROGENEITY OF THE RIGHT KIDNEY MAY REFLECT SOME CYSTIC CHANGE. THIS COULD BE CONFIRMED WITH ULT RASOUND. 5. PREVIOUS LEFT-SIDED NEPHRECTOMY. 6. MINIMAL, UNCOMPLICATED DIVERTICULAR CHANGE INVOLVING THE LEFT SIDE OF THE COLON. 7. DEGENERATIVE CHANGE AND COMPRESSION FRACTURES IN THE LUMBAR SPINE APPEAR CHRONIC.
[2018-07-03] MEDS ORDERED: SODIUM CHLORIDE 0.9% 1,000 ML IV ONE (14:31)
[2018-07-03 16:27] VITALS: BMI 29.2
[2018-07-03] MEDS ORDERED: BACLOFEN 10 MG TAB PO PRN (18:05)
[2018-07-03] MEDS ORDERED: ZOLPIDEM 10 MG TAB PO PRN (18:05)
[2018-07-03] MEDS: traMADol 50 MG TAB PO PRN (18:39)
--- NOTE | 2018-07-03 19:59 | CONS ---
CONSULTATION DATE OF SERVICE: 07/03/2018. REASON FOR CONSULTATION: UTI with sepsis. HISTORY OF PRESENT ILLNESS: The patient is an 82-year-old female presenting to the ER at [facility] with right flank pain and urinary symptoms. The patient's initial symptoms started with pain to the right flank area about a week ago. Patient described to more of a dull aching pain with intense about 6-10/10 with no radiation of the leg or any bowel or bladder problem. Subsequently patient started having burning and frequency of urination but no hematuria. The patient did have some rigors and chills. The patient was evaluated in the outpatient setting by the primary care physician on Thursday, that is 3 days prior to the hospital. She did have a UA and she was diagnosed with urinary tract infection. The patient was started on oral doxycycline. However, the patient did have progressively worsening symptoms with fever, nausea and vomiting. The patient was brought to the [facility] ER. The patient was evaluated by the ER physician. On arrival, the patient did have a fever of 99.9. The patient did have significant elevated white count of 39.9 with a creatinine of 5.22. Troponin was slightly elevated as well. Liver enzymes are elevated. She did have significantly positive UA with large leukocyte esterase, more than 118 WBC. Culture is currently pending. The patient did have a CT of abdomen and pelvis that did show evidence of left nephrectomy. Right kidney did not show any evidence of stones or hydronephrosis. She did receive a dose of Rocephin in the ER and admitted to the hospital. Infectious Disease was consulted for further recommendation regarding antibiotic therapy. REVIEW OF SYSTEMS: Positive points have been mentioned in HPI. Rest of systems are negative. PAST MEDICAL HISTORY: Significant for atrophic left kidney and kidney stones, hypertension, rheumatoid arthritis, coronary artery disease, DVT. PAST SURGICAL HISTORY: Hysterectomy, left knee replacement, left nephrectomy and right hip fracture repair. SOCIAL HISTORY: No history of smoking, drinking, or drug use. FAMILY HISTORY: Mother has history of disease and brother with history of cancer. ALLERGIES: PENICILLIN with unknown problem. Also allergic to NITROFURANTOIN and CODEINE. MEDICATIONS: Medications include the patient is currently on IV fluids at 100 mL an hour. She did receive a dose of Tylenol and Rocephin down in the ER. PHYSICAL EXAMINATION: Blood pressure 141/55 with a pulse of 90, temperature 98. She is 97% on room air. General description is an elderly female, lying in bed in no distress. No tachypnea or accessory muscle of respiration use. HEENT: Shows no pallor or scleral icterus. Oral mucous membrane is dry. NECK: Trachea central. No thyromegaly. LUNGS: Unlabored breathing. Clear to auscultation anteriorly. No wheeze or crackle. HEART: S1, S2. Regular rate and rhythm. ABDOMEN: Soft, no tenderness. No guarding. No rigidity. No organomegaly. EXTREMITIES: No edema feet. SKIN EXAMINATION: No rash or mass palpable. NEUROLOGICAL: Patient is awake, alert, oriented x3. Mood and affect normal. LABS: Hemoglobin 13.1, white count of 39.9 with a BUN of 34, creatinine 5.22. urine is as mentioned above. DIAGNOSTIC IMPRESSION AND PLAN: 1. Patient admitted to the hospital with fever, tachycardia, elevated white count meeting criteria for sepsis. Source is right-sided pyelonephritis, failing outpatient oral doxycycline therapy, likely a community acquired pathogen such as an E coli as the patient did not give a history of recurrent UTIs or antibiotic exposure. 2. The patient's PENICILLIN AND NITROFURANTOIN ALLERGIES that will limit number of antibiotics that can be safely used. PLAN: 1. Rocephin 2 g IV piggyback daily. 2. IV fluid. 3. We will follow on her clinical condition as well as cultures to further adjust medication if needed. Family present at bedside. Their questions were answered. MMODL / IJN: [id number] /
[2018-07-04] MEDS: traMADol 50 MG TAB PO PRN ×3 (01:21→22:51)
[2018-07-04 06:47] LABS: HCT 38.4 % (34.0-46.0); Hypochromasia Slight; MCH 31.8 pg (25.0-35.0); MCHC 31.2 g/dL (31.0-37.0); MCV 102.1 fL (80.0-100.0); Macrocytosis Slight; Mean Platelet Volume 8.8; RBC 3.77 m/uL (3.80-5.40); RDW 14.3 % (11.5-15.5)
[2018-07-04 06:49] LABS: Platelet Count 61 k/uL (150-450)
[2018-07-04 06:59] LABS: Calcium 8.3 mg/dL (8.4-10.2); Potassium 4.8 mmol/L (3.5-5.1)
[2018-07-04] MEDS: ATENOLOL 50 MG TAB PO SCH (07:50)
[2018-07-04] MEDS: predniSONE 5 MG TAB PO SCH (07:50)
[2018-07-04] MEDS ORDERED: traMADol 50 MG TAB PO PRN (10:27)
[2018-07-04] MEDS ORDERED: traMADol 50 MG TAB PO STA (10:28)
--- NOTE | 2018-07-04 11:08 | P.CRDCN ---
History of Present Illness Consult date: 07/04/18 Chief complaint: Weakness/UTI/Elevated troponins History of present illness: HISTORY OF PRESENT ILLNESS AND PLAN: This is a 82-year-old female who presents in the emergency department with complaints of feeling weaker, vomiting, right flank pain and fever for the past few days. Patient states she is unable to get out of bed was not eating or hydrating properly. Patient states she called her family/friends to bring her to the emergency room. Patient states she was recently placed on antibiotics doxycycline for urinary tract infection outpatient. Patient states she has chronic back pain and it is difficult to tell the difference between back pain/kidney stone pain/UTI. Patient currently feeling better, alert and oriented, in no acute distress. Back pain continues, painful with movement. Patient states she has no current complaints of chest pain, chest pressure, palpitations or lower extremity edema.Patient currently has Morrow catheter. SIGNIFICANT PAST MEDICAL HISTORY: [atrophic kidney with left nephrectomy, kidney stones, multiple UTIs, hypertension, rheumatoid arthritis, CAD, DVT, diverticulitis, history of lumbar fracture, back pain] PAST SURGICAL HISTORY: ORIF of right hip. Vital signs currently stable. She is on room air. Currently a-febrile. EKG shows [sinus rhythm/sinus tach and PACs noted. Heart rate currently 90. Troponins elevated x [3]. 07/03/18 @ 1600 - 0.200, 07/03/18 @ 2100 0.173, 07/04/18 @0800 0.157. SIGNIFICANT LABORATORY VALUES: CBC = WBC 21.0, hemoglobin 12.0, hematocrit 38.4, platelets 61. BMP = potassium 4.8, sodium 142, chloride 118, BUN and 65, creatinine 3.67. Negative flu swab.. Chest x-ray possible rate developing infiltrate, possible right effusion. DX of spine negative for acute changes. Chronic L1 through L5 fracture. Degenerative changes noted. Computed Tomography scan of abdomen, positive for LEFT nephrectomy, positive chronic back changes/degeneration. Positive gallbladder stones. Most recent echo dated = 09/09/2014 indicates EF 55-60%, mild LVH. Mild TR. Severe pulmonary hypertension, 61.49. 1. Acute on chronic UTI/Right pyelonephritis/history of left nephrectomy. 2. Elevated troponins secondary to acute kidney injury. No acute myocardial injury. 3. Leukocytosis, continue with IV antibiotics and cautious IV hydration. PLAN: Order echocardiogram. Initiate subcutaneous heparin for DVT prevention. Continue with atenolol 50 mg daily. Continue all other medication/medical regime. Heart healthy diet. Thank you kindly for this consult. Will follow, please call with any additional needs. Nurse Practitioner note has been reviewed by Physician. Signing provider agrees with the documented findings, assessment and plan of care. Review of Systems REVIEW OF SYSTEMS: CONSTITUTIONAL: Denies fever. Denies chills. EYES: Denies blurred vision. Denies blurred vision or vision changes. Denies eye pain. EARS, NOSE, MOUTH & THROAT: Denies headache. Denies sore throat. Denies ear pain Denies hemoptysis. CARDIOVASCULAR: Denies chest pain. Denies shortness of breath. Denies orthopnea. Denies PND. Denies palpitations. RESPIRATORY: Denies cough. Denies shortness of breath. GASTROINTESTINAL: Denies abdominal pain or distention. Denies diarrhea. Denies constipation. Denies nausea. Denies vomiting. MUSCULOSKELETAL: Complains of myalgias. Complains of back pain. INTEGUMENTARY: Denies pruitis. Denies rash. ENDOCRINE: Denies fatigue. Denies weight change. Denies polydipsia. Denies polyurina Denies heat/cold intolerance. GENITOURINARY:Denies burning, hematuria or urgency with micturation. HEMATOLOGIC: Denies history of anemia. Denies bleeding. NEUROLOGIC: Denies numbness. Denies tingling. Denies weakness. PSYCHIATRIC: Denies anxiety. Denies depression. Past Medical History Past Medical History: Coronary Artery Disease (CAD), Deep Vein Thrombosis (DVT), Hypertension, Pneumonia, Renal Disease, Rheumatoid Arthritis (RA) Additional Past Medical History / Comment(s): UTI History of Any Multi-Drug Resistant Organisms: None Reported, Other MDRO Past Surgical History: Hysterectomy, Joint Replacement, Orthopedic Surgery Additional Past Surgical History / Comment(s): left knee replacement, LEFT kidney removed, RIGHT HIP REPAIRED 06/2014 Past Anesthesia/Blood Transfusion Reactions: No Reported Reaction, Blood Transfusion Reaction Additional Past Anesthesia/Blood Transfusion Reaction / Comment(s): pt stated that she was given blood before and she went into "pulmonary edema.". blood transfusion reaction before 1979 Past Psychological History: No Psychological Hx Reported Smoking Status: Never smoker Past Alcohol Use History: None Reported Past Drug Use History: None Reported - Past Family History Mother Family Medical History: Coronary Artery Disease (CAD) Brother(s) Family Medical History: Cancer Medications and Allergies Home Medications Medication Instructions Recorded Confirmed Type Atenolol [Tenormin] 50 mg PO DAILY #60 tab 09/11/14 07/03/18 Rx predniSONE 5 mg PO DAILY #60 tab 09/11/14 07/03/18 Rx Zolpidem Tartrate 10 mg PO HS 01/19/17 07/03/18 History Baclofen 5 mg PO BID PRN 07/03/18 07/03/18 History traMADol HCL [Ultram] 50 mg PO Q6HR PRN 07/03/18 07/03/18 History Allergies Allergy/AdvReac Type Severity Reaction Status Date / Time codeine Allergy Rash/Hives Verified 07/03/18 10:27 nitrofurantoin Allergy Rash/Hives Verified 07/03/18 10:27 macrocrystalline [From Macrodantin] Penicillins Allergy Anaphylaxis Verified 07/03/18 10:27 doxycycline AdvReac Nausea & Verified 07/04/18 10:24 Vomiting Sulfa (Sulfonamide AdvReac Nausea & Verified 07/04/18 10:26 Antibiotics) Vomiting Physical Exam Vitals: Vital Signs Temp Pulse Pulse Resp BP BP Pulse Ox 07/04/18 08:00 88 07/04/18 07:58 97.5 F L 88 18 115/72 100 07/04/18 03:39 98.5 F 88 18 145/62 98 07/03/18 23:19 90 18 136/65 96 07/03/18 20:00 98 F 92 18 141/60 97 07/03/18 16:12 98 F 98 18 141/65 97 07/03/18 15:20 98.0 F 96 89 L 07/03/18 15:10 96 94 L 07/03/18 15:00 101 H 95 07/03/18 14:50 97 97 07/03/18 14:40 95 98 07/03/18 14:30 96 96 07/03/18 14:20 99 97 07/03/18 14:10 100 98 07/03/18 14:00 101 H 151/77 99 07/03/18 13:50 102 H 151/77 99 07/03/18 13:40 151/77 07/03/18 13:30 104 H 151/77 99 07/03/18 13:20 101 H 151/77 99 07/03/18 13:10 98 151/77 98 07/03/18 13:00 98 164/68 99 07/03/18 12:50 105 H 164/68 99 07/03/18 12:40 105 H 164/68 98 07/03/18 12:30 97 167/67 99 07/03/18 12:20 107 H 167/67 100 07/03/18 12:10 110 H 148/122 98 07/03/18 12:00 110 H 109/58 99 07/03/18 11:50 110 H 109/58 96 07/03/18 11:40 101 H 109/58 97 07/03/18 11:30 105 H 94 L 07/03/18 11:20 106 H 99 07/03/18 11:00 153/51 07/03/18 10:50 153/51 07/03/18 10:40 98.0 F 106 H 153/51 07/03/18 10:30 108 H 188/84 07/03/18 10:20 116 H 188/84 Intake and Output 07/03/18 07/04/18 07/04/18 22:59 06:59 14:59 Intake Total 2850 240 Output Total 300 500 Balance 2550 -260 Intake: IV 100 Sodium Chloride 0.9% 1, 100 000 ml @ 100 mls/hr IV . Q10H ONE Rx#:[id number] Amount of Fluid Infused ( 2750 ml) Oral 0 240 Output: Urine 300 500 Other: Voiding Method Indwelling Catheter Indwelling Catheter Indwelling Catheter Weight 87 kg PHYSICAL EXAM: VITAL SIGNS: WNL, pt continues on room air, a-febrile. GENERAL: Well developed, in no acute distress. HEENT: Head is atraumatic, normocephalic. Pupils are equal, round. Extra ocular movements intact. Mucous membranes moist. Neck supple. No JVD. No carotid bruit. No thyromegaly. LUNGS: Clear to auscultation no wheezes, rales or rhonchi. No chest wall tenderness on palpation or with deep breathing. HEART: Regular rate and rhythm, no rubs or gallops. S1 and S2 heard. No murmur. ABDOMEN: Abdominal exam, WNL. Bowel sounds x4 quads. Soft, non-tender, without masses, organomegaly, or abdominal aorta enlargement. EXTREMITIES/VASCULAR: Extremities have easily palpable radial, femoral, dorsals pedis and posterior tibial pulses. No cyanosis, calf tenderness. No BLE edema. NEUROLOGIC: Patient is awake, alert and oriented x3. No focal neurological abnormalities. Results 07/04/18 06:16 07/04/18 06:16 Cardiac Enzymes 07/03/18 07/03/18 07/03/18 Range/Units 10:05 10:05 16:00 AST 136 H (14-36) U/L Troponin I 0.238 H* 0.200 H* (0.000-0.034) ng/mL 07/03/18 07/04/18 Range/Units 21:11 06:16 AST (14-36) U/L Troponin I 0.173 H* 0.157 H* (0.000-0.034) ng/mL Coagulation 07/03/18 Range/Units 10:05 PT 11.9 (9.0-12.0) sec APTT 26.0 (22.0-30.0) sec CBC 07/03/18 07/04/18 Range/Units 10:05 06:16 WBC 39.9 H 21.0 H (3.8-10.6) k/uL RBC 4.27 3.77 L (3.80-5.40) m/uL Hgb 13.1 12.0 (11.4-16.0) gm/dL Hct 42.8 38.4 (34.0-46.0) % Plt Count 72 L 61 L (150-450) k/uL Comprehensive Metabolic Panel 07/03/18 07/04/18 Range/Units 10:05 06:16 Sodium 142 142 (137-145) mmol/L Potassium 5.5 H 4.8 (3.5-5.1) mmol/L Chloride 115 H 118 H (98-107) mmol/L Carbon Dioxide 15 L 16 L (22-30) mmol/L BUN 74 H 65 H (7-17) mg/dL Creatinine 5.22 H 3.67 H (0.52-1.04) mg/dL Glucose 97 90 (74-99) mg/dL Calcium 8.8 8.3 L (8.4-10.2) mg/dL AST 136 H (14-36) U/L ALT 108 H (9-52) U/L Alkaline Phosphatase 115 (38-126) U/L Total Protein 5.9 L (6.3-8.2) g/dL Albumin 3.2 L (3.5-5.0) g/dL Current Medications Generic Name Dose Route Start Last Admin Trade Name Freq PRN Reason Stop Dose Admin Atenolol 50 mg 07/04/18 09:00 07/04/18 07:50 Tenormin PO 50 mg DAILY ANTON Administration Baclofen 5 mg 07/03/18 18:05 Lioresal PO BID PRN Muscle Spasm Heparin Sodium (Porcine) 5,000 unit 07/04/18 21:00 Heparin SQ Q12HR ANTON Ceftriaxone Sodium 2 gm/ 50 mls @ 100 mls/hr 07/04/18 09:00 07/04/18 07:51 Sodium Chloride IVPB 100 mls/hr Q24HR ANTON Administration Prednisone 5 mg 07/04/18 09:00 07/04/18 07:50 PO 5 mg DAILY ANTON Administration Tramadol HCl 50 mg 07/03/18 18:05 07/04/18 07:50 Ultram PO 50 mg Q6HR PRN Administration Pain Zolpidem Tartrate 10 mg 07/03/18 18:05 Ambien PO HS PRN insomnia Intake and Output 07/03/18 07/04/18 07/04/18 22:59 06:59 14:59 Intake Total 2850 240 Output Total 300 500 Balance 2550 -260 Intake: IV 100 Sodium Chloride 0.9% 1, 100 000 ml @ 100 mls/hr IV . Q10H ONE Rx#:[id number] Amount of Fluid Infused ( 2750 ml) Oral 0 240 Output: Urine 300 500 Other: Voiding Method Indwelling Catheter Indwelling Catheter Indwelling Catheter Weight 87 kg 07/04/18 06:16 07/04/18 06:16 - EKG Interpretation EKG: sinus rhythm (PAC's, HR 90's.) Assessment and Plan Plan: 1. Acute on chronic UTI/Right pyelonephritis/history of left nephrectomy. 2. Elevated troponins secondary to acute kidney injury. No acute myocardial injury. 3. Leukocytosis, continue with IV antibiotics and cautious IV hydration. PLAN: Order echocardiogram. Initiate subcutaneous heparin for DVT prevention. Continue with atenolol 50 mg daily. Continue all other medication/medical regime. Heart healthy diet. Thank you kindly for this consult. Will follow, please call with any additional needs.
--- NOTE | 2018-07-04 12:14 | P.HPIM ---
History of Present Illness H&P Date: 07/04/18 Chief Complaint: Weakness/UTI This is an 82-year-old female, patient of Dr. Aponte, has a history of rheumatoid arthritis and advanced osteoarthritis. Patient was seen last week at her primary care office and was diagnosed with urinary tract infection and started on doxycycline. She was also having an exacerbation of her RA and started on a tapering dose of dexamethasone. Over the last few days patient reports at home she became weaker and started to have episodes of vomiting. She was unable to get out of bed or tolerate any oral fluids. Upon evaluation in the emergency department, she was noted to have WBCs 21, hemoglobin 12, BUN 65, creatinine 3.6, elevated troponin 0.20, 0.173, UA was positive, influenza screening negative. Patient's baseline creatinine is 1.5. 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 She was started on IV ceftriaxone, 500 mL normal saline bolus was given. Blood and urine cultures collected, nephrology, infectious disease, and cardiology consulted. Review of Systems Constitutional: Reports chills, Reports fatigue, Reports weakness, Denies fever Cardiovascular: Denies chest pain, Denies edema, Denies irregular heart beat, Denies orthopnea, Denies palpitations, Denies shortness of breath, Denies syncope Respiratory: Denies cough, Denies dyspnea, Denies pain, Denies wheezing Gastrointestinal: Denies abdominal pain, Denies bloating, Denies constipation, Denies diarrhea, Denies heartburn, Denies nausea, Denies vomiting Genitourinary: Reports dysuria, Reports urgency, Reports urinary frequency Musculoskeletal: Reports gait dysfunction, Reports muscle weakness, Reports myalgias, Denies arm numbness/tingling Integumentary: Denies dryness, Denies foot/leg ulcers, Denies pruritus, Denies rash, Denies wounds Neurological: Reports gait dysfunction, Reports weakness, Denies aphasia, Denies change in speech, Denies confusion, Denies headaches, Denies numbness, Denies paralysis, Denies seizures, Denies syncope Psychiatric: Denies anxiety, Denies confusion, Denies depression Past Medical History Past Medical History: Coronary Artery Disease (CAD), Deep Vein Thrombosis (DVT), Hypertension, Pneumonia, Renal Disease, Rheumatoid Arthritis (RA) Additional Past Medical History / Comment(s): UTI History of Any Multi-Drug Resistant Organisms: None Reported, Other MDRO Past Surgical History: Hysterectomy, Joint Replacement, Orthopedic Surgery Additional Past Surgical History / Comment(s): left knee replacement, LEFT kidney removed, RIGHT HIP REPAIRED 06/2014 Past Anesthesia/Blood Transfusion Reactions: No Reported Reaction, Blood Transfusion Reaction Additional Past Anesthesia/Blood Transfusion Reaction / Comment(s): pt stated that she was given blood before and she went into "pulmonary edema.". blood transfusion reaction before 1979 Past Psychological History: No Psychological Hx Reported Smoking Status: Never smoker Past Alcohol Use History: None Reported Past Drug Use History: None Reported - Past Family History Mother Family Medical History: Coronary Artery Disease (CAD) Brother(s) Family Medical History: Cancer Medications and Allergies Home Medications Medication Instructions Recorded Confirmed Type Atenolol [Tenormin] 50 mg PO DAILY #60 tab 09/11/14 07/03/18 Rx predniSONE 5 mg PO DAILY #60 tab 09/11/14 07/03/18 Rx Zolpidem Tartrate 10 mg PO HS 01/19/17 07/03/18 History Baclofen 5 mg PO BID PRN 07/03/18 07/03/18 History traMADol HCL [Ultram] 50 mg PO Q6HR PRN 07/03/18 07/03/18 History Allergies Allergy/AdvReac Type Severity Reaction Status Date / Time codeine Allergy Rash/Hives Verified 07/03/18 10:27 nitrofurantoin Allergy Rash/Hives Verified 07/03/18 10:27 macrocrystalline [From Macrodantin] Penicillins Allergy Anaphylaxis Verified 07/03/18 10:27 doxycycline AdvReac Nausea & Verified 07/04/18 10:24 Vomiting Sulfa (Sulfonamide AdvReac Nausea & Verified 07/04/18 10:26 Antibiotics) Vomiting Physical Exam Vitals: Vital Signs Temp Pulse Pulse Resp BP BP Pulse Ox 07/04/18 07:58 97.5 F L 88 18 115/72 100 07/04/18 03:39 98.5 F 88 18 145/62 98 07/03/18 23:19 90 18 136/65 96 07/03/18 20:00 98 F 92 18 141/60 97 07/03/18 16:12 98 F 98 18 141/65 97 07/03/18 15:20 98.0 F 96 89 L 07/03/18 15:10 96 94 L 07/03/18 15:00 101 H 95 07/03/18 14:50 97 97 07/03/18 14:40 95 98 07/03/18 14:30 96 96 07/03/18 14:20 99 97 07/03/18 14:10 100 98 07/03/18 14:00 101 H 151/77 99 07/03/18 13:50 102 H 151/77 99 07/03/18 13:40 151/77 07/03/18 13:30 104 H 151/77 99 07/03/18 13:20 101 H 151/77 99 07/03/18 13:10 98 151/77 98 07/03/18 13:00 98 164/68 99 07/03/18 12:50 105 H 164/68 99 07/03/18 12:40 105 H 164/68 98 07/03/18 12:30 97 167/67 99 07/03/18 12:20 107 H 167/67 100 07/03/18 12:10 110 H 148/122 98 07/03/18 12:00 110 H 109/58 99 07/03/18 11:50 110 H 109/58 96 07/03/18 11:40 101 H 109/58 97 07/03/18 11:30 105 H 94 L 07/03/18 11:20 106 H 99 07/03/18 11:00 153/51 07/03/18 10:50 153/51 07/03/18 10:40 98.0 F 106 H 153/51 07/03/18 10:30 108 H 188/84 07/03/18 10:20 116 H 188/84 07/03/18 10:10 113 H 188/84 96 07/03/18 10:03 99.9 F H 07/03/18 10:00 121 H 181/71 84 L 07/03/18 09:56 98 07/03/18 09:53 98.7 F 121 H 18 181/71 98 Intake and Output 07/03/18 07/04/18 07/04/18 22:59 06:59 14:59 Intake Total 2850 240 Output Total 300 500 Balance 2550 -260 Intake: IV 100 Sodium Chloride 0.9% 1, 100 000 ml @ 100 mls/hr IV . Q10H ONE Rx#:[id number] Amount of Fluid Infused ( 2750 ml) Oral 0 240 Output: Urine 300 500 Other: Voiding Method Indwelling Catheter Indwelling Catheter Weight 87 kg - Constitutional General appearance: cooperative, no acute distress - EENT Eyes: EOMI, PERRLA, normal appearance - Neck Neck: no lymphadenopathy, normal ROM, no thyromegaly - Respiratory Respiratory: bilateral: diminished, negative: dullness, rales, rhonchi, wheezing - Cardiovascular Rhythm: regular Heart sounds: normal: S1, S2 - Gastrointestinal General gastrointestinal: no distended, no hepatomegaly, normal bowel sounds, no organomegaly, soft, no splenomegaly, no tenderness - Neurologic Neurologic: CNII-XII intact - Musculoskeletal Musculoskeletal: generalized weakness, strength equal bilaterally - Psychiatric Psychiatric: A&O x's 3, appropriate affect, intact judgment & insight Results CBC & Chem 7: 07/04/18 06:16 07/04/18 06:16 Labs: Abnormal Lab Results - Last 24 Hours (Table) 07/03/18 07/03/18 07/03/18 Range/Units 10:05 10:05 10:05 WBC 39.9 H (3.8-10.6) k/uL RBC (3.80-5.40) m/uL MCV 100.2 H (80.0-100.0) fL MCHC 30.7 L (31.0-37.0) g/dL Plt Count 72 L (150-450) k/uL Neutrophils # 35.2 H (1.3-7.7) k/uL Monocytes # 1.7 H (0-1.0) k/uL Basophils # 0.3 H (0-0.2) k/uL Potassium 5.5 H (3.5-5.1) mmol/L Chloride 115 H (98-107) mmol/L Carbon Dioxide 15 L (22-30) mmol/L BUN 74 H (7-17) mg/dL Creatinine 5.22 H (0.52-1.04) mg/dL Calcium (8.4-10.2) mg/dL AST 136 H (14-36) U/L ALT 108 H (9-52) U/L Troponin I 0.238 H* (0.000-0.034) ng/mL Total Protein 5.9 L (6.3-8.2) g/dL Albumin 3.2 L (3.5-5.0) g/dL Urine Appearance (Clear) Urine Protein (Negative) Urine Blood (Negative) Ur Leukocyte Esterase (Negative) Urine RBC (0-5) /hpf Urine WBC (0-5) /hpf Urine WBC Clumps (None) /hpf Urine Bacteria (None) /hpf 07/03/18 07/03/18 07/03/18 Range/Units 11:50 16:00 21:11 WBC (3.8-10.6) k/uL RBC (3.80-5.40) m/uL MCV (80.0-100.0) fL MCHC (31.0-37.0) g/dL Plt Count (150-450) k/uL Neutrophils # (1.3-7.7) k/uL Monocytes # (0-1.0) k/uL Basophils # (0-0.2) k/uL Potassium (3.5-5.1) mmol/L Chloride (98-107) mmol/L Carbon Dioxide (22-30) mmol/L BUN (7-17) mg/dL Creatinine (0.52-1.04) mg/dL Calcium (8.4-10.2) mg/dL AST (14-36) U/L ALT (9-52) U/L Troponin I 0.200 H* 0.173 H* (0.000-0.034) ng/mL Total Protein (6.3-8.2) g/dL Albumin (3.5-5.0) g/dL Urine Appearance Turbid H (Clear) Urine Protein 2+ H (Negative) Urine Blood Moderate H (Negative) Ur Leukocyte Esterase Large H (Negative) Urine RBC 118 H (0-5) /hpf Urine WBC >182 H (0-5) /hpf Urine WBC Clumps Many H (None) /hpf Urine Bacteria Many H (None) /hpf 07/04/18 07/04/18 Range/Units 06:16 06:16 WBC 21.0 H (3.8-10.6) k/uL RBC 3.77 L (3.80-5.40) m/uL MCV 102.1 H (80.0-100.0) fL MCHC (31.0-37.0) g/dL Plt Count 61 L (150-450) k/uL Neutrophils # (1.3-7.7) k/uL Monocytes # (0-1.0) k/uL Basophils # (0-0.2) k/uL Potassium (3.5-5.1) mmol/L Chloride 118 H (98-107) mmol/L Carbon Dioxide 16 L (22-30) mmol/L BUN 65 H (7-17) mg/dL Creatinine 3.67 H (0.52-1.04) mg/dL Calcium 8.3 L (8.4-10.2) mg/dL AST (14-36) U/L ALT (9-52) U/L Troponin I (0.000-0.034) ng/mL Total Protein (6.3-8.2) g/dL Albumin (3.5-5.0) g/dL Urine Appearance (Clear) Urine Protein (Negative) Urine Blood (Negative) Ur Leukocyte Esterase (Negative) Urine RBC (0-5) /hpf Urine WBC (0-5) /hpf Urine WBC Clumps (None) /hpf Urine Bacteria (None) /hpf Microbiology - Last 24 Hours (Table) 07/03/18 11:50 Urine Culture - Preliminary Urine,Catheterized Thrombosis Risk Factor Assmnt - Choose All That Apply Each Factor Represents 1 point: Obesity (BMI >25) Other Risk Factors: Yes Each Risk Factor Represents 3 Points: Age 75 years or older Thrombosis Risk Factor Assessment Total Risk Factor Score: 4 Thrombosis Risk Factor Assessment Level: Moderate Risk Assessment and Plan Plan: 1. Sepsis secondary to right-sided polynephritis. Patient failed outpatient therapy on doxycycline. Infectious disease consult appreciated, blood and urine cultures pending, will continue with Rocephin 2 g IV piggyback daily and IV fluids. 2. Acute renal failure on chronic kidney disease with a history of left-sided nephrectomy. Baseline creatinine 1.5, creatinine admission 3.67, continue with IV fluids nephrology on consult 3. Elevated troponin with no chest pain. Cardiology on consult, was likely demand mismatch, [place] cardiogram pending. 4. Rheumatoid arthritis. Continue prednisone 5 mg daily along with baclofen 5 mg twice a day and tramadol 50 mg every 6 hours as needed for pain. 5. Hypertension. Continue with atenolol 50 mg daily 6. Insomnia. Continue with Ambien 10 mg at bedtime. 7. GI prophylaxis. Protonix 8. DVT prophylaxis. Subcu heparin The above impression and plan of care have been discussed and directed by signing physician. Edilia Martinez nurse practitioner acting as scribe for signing physician.
--- NOTE | 2018-07-04 15:54 | CONS ---
CONSULTATION REASON FOR CONSULT: Renal failure. HISTORY OF PRESENT ILLNESS: Patient is an 82-year-old female who was admitted to the hospital with complaints of weakness. She was not eating much. She did have some nausea and vomiting as well. The patient denies any significant change in her urine output. She does have a history of left-sided nephrectomy for an atrophic kidney many years ago. Patient has underlying history of rheumatoid arthritis and is maintained on biological agents. I believe she was taking Humira recently. According to the patient, she had been on methotrexate which was discontinued secondary to bone marrow suppression. On admission, her creatinine was noted to be 5.2 mg/dL. It is now down to 3.67. The patient is maintained on IV fluids and she has had good urine output. She has also had a urinary tract infection as outpatient for which she had been on doxycycline and currently is maintained on IV antibiotics. Patient has been evaluated by Infectious Disease and currently she is being treated for right-sided pyelonephritis/urinary tract infection. PAST MEDICAL HISTORY: Hypertension, rheumatoid arthritis, history of DVT, chronic kidney disease, baseline not known; previous history of pneumonia, previous history of UTI. PAST SURGICAL HISTORY: Left nephrectomy, left knee arthroplasty, right hip surgery, hysterectomy. SOCIAL HISTORY: Negative for smoking, drug abuse or alcohol abuse. MEDICATIONS: Medications at home prior to admission included Tenormin, prednisone, baclofen, Ultram, codeine, zolpidem. ALLERGIES: CODEINE, MACRODANTIN, PENICILLIN, DOXYCYCLINE, SULFA. REVIEW OF SYSTEMS: As per HPI. Other systems negative. PHYSICAL EXAMINATION: Patient is comfortable, awake, alert, oriented x3. She is not in any acute distress. Blood pressure was 115/72, heart rate 88 per minute. Patient is afebrile. Examination of the heart S1, S2. Examination lungs bilateral breath sounds are heard. Abdomen is soft, nontender. Exam of lower extremities shows no significant edema. [employer]ING [employer] exam is grossly intact. LAB: Show sodium 142, potassium 4.8, chloride 118, CO2 16, BUN 65, serum creatinine 3.67, hemoglobin 12.0 g/dL. UA shows 2+ protein, blood moderate, WBCs more than 182, many WBC clumps were seen. ASSESSMENT: 1. Acute kidney injury secondary to sepsis, urinary tract infection and volume depletion. Currently maintained on IV fluids with significant improvement in renal function. The patient has a solitary kidney. 2. Urinary tract infection/right pyelonephritis, maintained on IV antibiotics. Urine culture is currently pending. Patient has been evaluated by Infectious Disease. 3. Status post left nephrectomy for an atrophic kidney. 4. Hypertension. Blood pressure is currently fairly well controlled. 5. Rheumatoid arthritis, being followed by Dr. Byrnes out of [facility]. Recently off of Humira and maintained on prednisone. Previous history of methotrexate, which was discontinued secondary to bone marrow suppression. 6. Non gap metabolic acidosis secondary to renal failure, add oral sodium bicarb. PLAN: Continue with IV fluids, repeat labs in a.m., follow up on urine cultures, avoid nephrotoxic agents. The patient will need outpatient followup for CKD. Add oral sodium bicarb. Thank you for this consultation. We will continue to follow the patient with you during her hospitalization. MMODL / IJN: [id number] /
[2018-07-04] MEDS ORDERED: HYDROcodone/APAP 5-325MG 1 EACH TAB PO PRN (17:25)
[2018-07-04] MEDS: HEPARIN SODIUM,PORCINE 5,000 UNIT/ML 1 ML VIAL SQ SCH (20:47)
[2018-07-04] MEDS: SODIUM BICARBONATE TAB 650 MG TAB PO SCH (20:47)
[2018-07-04] MEDS ORDERED: HEPARIN SODIUM,PORCINE 5,000 UNIT/ML 1 ML VIAL SQ SCH (21:00)
--- NOTE | 2018-07-04 23:06 | PN ---
PROGRESS NOTE DATE OF SERVICE: 07/04/2018. REASON FOR FOLLOWUP: UTI and pyelonephritis. INTERVAL HISTORY: The patient is currently afebrile. The patient is breathing comfortably. The patient denies having any chest pain. No shortness of breath or cough. The right flank pain has improved. No nausea, no vomiting, no diarrhea. PHYSICAL EXAMINATION: Blood pressure 152/70 with a pulse of 74, temperature 97.4, she is 98% on room air. GENERAL DESCRIPTION: An elderly female lying in bed in no distress. RESPIRATORY SYSTEM: Unlabored breathing. Clear to auscultation anteriorly. HEART: S1, S2. Regular rate and rhythm. ABDOMEN: Soft, nontender. EXTREMITIES: No edema. LABS: Hemoglobin is 12 with white count 21,000. BUN of 65, creatinine 3.67. Urine with gram- negative. Blood culture has been negative. DIAGNOSTIC IMPRESSION AND PLAN: Patient admitted to the hospital with sepsis, source gram-negative urinary tract infection with concern for pyelonephritis. Patient currently covered with Rocephin 2 g daily to continue while waiting for the culture to finalize. Continue supportive care. MMODL / IJN: [id number] /
[2018-07-05 06:18] LABS: Eosinophils # (A) 0.1 k/uL (0-0.7); Eosinophils % (A) 0 %; Hypochromasia Marked; Macrocytosis Slight; Mean Platelet Volume 9.7; Neutrophils % (A) 78 %; RDW 14.2 % (11.5-15.5)
[2018-07-05 06:29] LABS: Basophils # (A) 0.1 k/uL (0-0.2); Basophils % (A) 0 %; HCT 39.5 % (34.0-46.0); Lymphocytes # (A) 2.7 k/uL (1.0-4.8); Lymphocytes % (A) 15 %; MCHC 30.4 g/dL (31.0-37.0); MCV 101.9 fL (80.0-100.0); Monocytes # (A) 0.6 k/uL (0-1.0); Monocytes % (A) 4 %; Neutrophils # (A) 13.9 k/uL (1.3-7.7); RBC 3.88 m/uL (3.80-5.40); WBC 17.7 k/uL (3.8-10.6)
[2018-07-05 06:30] LABS: Platelet Count 53 k/uL (150-450)
[2018-07-05 06:32] LABS: Albumin 2.7 g/dL (3.5-5.0); Calcium 8.8 mg/dL (8.4-10.2); Total Bilirubin 0.4 mg/dL (0.2-1.3); Total Protein 5.4 g/dL (6.3-8.2)
[2018-07-05] MEDS: SODIUM BICARBONATE TAB 650 MG TAB PO SCH ×2 (08:01→20:11)
[2018-07-05] MEDS: ATENOLOL 50 MG TAB PO SCH (08:01)
[2018-07-05] MEDS: predniSONE 5 MG TAB PO SCH (08:01)
[2018-07-05] MEDS: HEPARIN SODIUM,PORCINE 5,000 UNIT/ML 1 ML VIAL SQ SCH ×2 (08:02→20:11)
--- NOTE | 2018-07-05 08:57 | P.PN ---
Subjective Patient is seen in follow-up for acute kidney injury. Renal function continues to improve with creatinine down to 2.68 today. She denies any vomiting or diarrhea. She is maintained on normal saline at 100 mL an hour. Remains acidotic with a bicarbonate level of 14 today. Good urine output. Vital signs are stable. General: The patient appeared well nourished and normally developed. HEENT: Head exam is unremarkable. Neck is without jugular venous distension. LUNGS: Lungs are clear to auscultation and percussion. Breath sounds decreased. HEART: Rate and Rhythm are regular. First and second heart sounds normal. No murmurs, rubs or gallops. ABDOMEN: Abdominal exam reveals normal bowel sounds. Non-tender and non- distended. No evidence of peritonitis. EXTREMITITES: No clubbing, cyanosis, or edema. Objective - Vital Signs Vital signs: Vital Signs Temp 98.1 F 07/05/18 08:00 Pulse 64 07/05/18 08:00 Resp 18 07/05/18 08:00 BP 191/73 07/05/18 08:00 Pulse Ox 99 07/05/18 08:00 Intake & Output 07/04/18 07/05/18 07/05/18 18:59 06:59 18:59 Intake Total 1600 480 240 Output Total 675 1000 Balance 925 -520 240 Weight 78.5 kg Intake: IV 1000 Sodium Chloride 0.9% 1, 1000 000 ml @ 100 mls/hr IV . Q10H ONE Rx#:[id number] Oral 600 480 240 Output: Urine 675 1000 Other: Voiding Method Indwelling Catheter Indwelling Catheter Indwelling Catheter - Labs CBC & Chem 7: 07/05/18 06:03 07/05/18 06:03 Labs: Abnormal Lab Results - Last 24 Hours (Table) 07/04/18 07/05/18 07/05/18 Range/Units 06:16 06:03 06:03 WBC 17.7 H (3.8-10.6) k/uL MCV 101.9 H (80.0-100.0) fL MCHC 30.4 L (31.0-37.0) g/dL Plt Count 53 L (150-450) k/uL Neutrophils # 13.9 H (1.3-7.7) k/uL Chloride 120 H (98-107) mmol/L Carbon Dioxide 14 L (22-30) mmol/L BUN 57 H (7-17) mg/dL Creatinine 2.68 H (0.52-1.04) mg/dL AST 46 H (14-36) U/L ALT 64 H (9-52) U/L Troponin I 0.157 H* (0.000-0.034) ng/mL Total Protein 5.4 L (6.3-8.2) g/dL Albumin 2.7 L (3.5-5.0) g/dL Microbiology - Last 24 Hours (Table) 07/03/18 11:50 Urine Culture - Preliminary Urine,Catheterized Gram Neg Bacilli 07/03/18 11:50 Blood Culture - Preliminary Blood No Growth after 24 hours Assessment and Plan Plan: Assessment: 1. Acute kidney injury mostly prerenal improving with IV hydration. Creatinine down to 2.68 today. 2. Chronic kidney disease stage III secondary to solitary right kidney with baseline creatinine in the range of 1.3-1.5. 3. Status post left-sided nephrectomy secondary to atrophic kidney. 4. Metabolic acidosis secondary to acute kidney injury and IV fluids. 5. UTI with urine culture positive for gram-negative bacilli. Plan: Discontinue normal saline. Start isotonic sodium bicarbonate drip to be run at 75 mL an hour. Follow up urine culture. Follow-up echocardiogram. Repeat electrolytes in the morning.
[2018-07-05] MEDS ORDERED: amLODIPine 5 MG TAB PO SCH (10:00)
[2018-07-05] MEDS: traMADol 50 MG TAB PO PRN ×2 (10:01→23:46)
--- NOTE | 2018-07-05 10:13 | PN ---
PROGRESS NOTE This is a lady who came in with acute renal failure, possible UTI and had significant elevation of creatinine, but creatinine has improved today with hydration to 2.68, suggesting that there was a significant acute component. Her blood pressure control seems optimal. Her vitals are stable. S1, S2 heard normally. Short systolic murmur noted. Lungs are clear. Abdomen and lower extremities exam unchanged. Plan is to review the echo and make further recommendations. Cardiac purdy, no other intervention. MMODL / IJN: [id number] /
--- NOTE | 2018-07-05 10:25 | ECHOF ---
Referral Reason:elevated troponin MEASUREMENTS -------- HEIGHT: 152.4 cm WEIGHT: 78.5 kg BP: 172/68 IVSd: 1.4 cm (0.6 - 1.1) LVIDd: 3.9 cm (3.9 - 5.3) LVPWd: 1.5 cm (0.6 - 1.1) IVSs: 1.9 cm LVIDs: 2.4 cm LVPWs: 2.0 cm LAESV Index (A-L): 33.93 ml/m Ao Diam: 2.6 cm (2.0 - 3.7) AV Cusp: 1.7 cm (1.5 - 2.6) LA Diam: 3.9 cm (2.7 - 3.8) MV EXCURSION: 15.618 mm (> 18.000) MV EF SLOPE: 109 mm/s (70 - 150) EPSS: 1.7 cm MV E Tho: 1.19 m/s MV DecT: 180 ms MV A Tho: 0.65 m/s MV E/A Ratio: 1.83 RAP: 5.00 mmHg RVSP: 49.97 mmHg FINDINGS -------- Sinus rhythm with extra systolic beats. This was a technically adequate study. The left ventricular size is normal. There is moderate concentric left ventricular hypertrophy. O verall left ventricular systolic function is normal with, an EF between 55 - 60 %. The right ventricle is normal in size. LA is midly dilated 29-33ml/m2. The right atrial size is normal. The aortic valve is trileaflet and appears structurally normal. The mitral valve leaflets are mildly thickened. [id number]-ocxwvh mitral regurgitation is present. Moderate tricuspid regurgitation present. There is mild to moderate pulmonary hypertension. The r ight ventricular systolic pressure, as measured by Doppler, is 49.97mmHg. There is no pulmonic regurgitation present. The aortic root size is normal. Normal inferior vena cava with normal inspiratory collapse consistent with estimated right atrial pre ssure of 5 mmHg. There is a small, generalized pericardial effusion present. CONCLUSIONS -------- 1. Sinus rhythm with extra systolic beats. 2. This was a technically adequate study. 3. The left ventricular size is normal. 4. There is moderate concentric left ventricular hypertrophy. 5. Overall left ventricular systolic function is normal with, an EF between 55 - 60 %. 6. LA is midly dilated 29-33ml/m2. 7. The aortic valve is trileaflet and appears structurally normal. 8. The mitral valve leaflets are mildly thickened. 9. Tjaxotdw-az-cyvawm mitral regurgitation is present. 10. Moderate tricuspid regurgitation present. 11. There is mild to moderate pulmonary hypertension. 12. There is no pulmonic regurgitation present. 13. The aortic root size is normal. 14. Normal inferior vena cava with normal inspiratory collapse consistent with estimated right atrial pressure of 5 mmHg. 15. There is a small, generalized pericardial effusion present. CLOTH PICKER: Gely Gray RDCS
[2018-07-05] MEDS: DEXTROSE 5% IN WATER 1,000 ML with SODIUM BICARB (1 MEQ/ML) 150 ML IV SCH (11:17)
--- NOTE | 2018-07-05 12:12 | P.PN ---
Subjective Progress Note Date: 07/05/18 This is an 82-year-old female, patient of Dr. Aponte, has a history of rheumatoid arthritis and advanced osteoarthritis. Patient was seen last week at her primary care office and was diagnosed with urinary tract infection and started on doxycycline. She was also having an exacerbation of her RA and started on a tapering dose of dexamethasone. Over the last few days patient reports at home she became weaker and started to have episodes of vomiting. She was unable to get out of bed or tolerate any oral fluids. Upon evaluation in the emergency department, she was noted to have WBCs 21, hemoglobin 12, BUN 65, creatinine 3.6, elevated troponin 0.20, 0.173, UA was positive, influenza scr eening negative. Patient's baseline creatinine is 1.5. 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 She was started on IV ceftriaxone, 500 mL normal saline bolus was given. Blood and urine cultures collected, nephrology, infectious disease, and cardiology consulted. 07/05: Patient has been afebrile, blood pressure 191/73, pulse running between 60s and 80s, pulse ox 99% on room air. White count is slightly down at 17.7, hemoglobin 12, platelet count 53. Patient has been followed by Dr. Horne and creatinine is improved today at 2.68. CO2 14. He has recommended isotonic sodium bicarb drip at 75 mL per hour. Patient has had good urine output and is drinking well. She got up to the shower this morning. Blood pressure is elevated for which Norvasc will be added. [facility] without telemetry. Patient has been seen by cardiology for elevated troponin secondary to acute kidney injury. Echocardiogram reveals EF of 55-60%, moderate to severe mitral regurgitation, moderate tricuspid regurgitation, mild to moderate pulmonary hypertension. Patient is also been seen by Dr. Decker for sepsis and urinary tract infection/pyelonephritis. Patient is currently on Rocephin which is continued. Urine culture is gram- negative bacilli. Blood culture no growth after 24 hours. Review of Systems Constitutional: Reports chills, Reports fatigue, Reports improved weakness, Denies fever Cardiovascular: Denies chest pain, Denies edema, Denies irregular heart beat, Denies orthopnea, Denies palpitations, Denies shortness of breath, Denies syncope Respiratory: Denies cough, Denies dyspnea, Denies pain, Denies wheezing Gastrointestinal: Denies abdominal pain, Denies bloating, Denies constipation, Denies diarrhea, Denies heartburn, Denies nausea, Denies vomiting Genitourinary: Reports dysuria, Reports urgency, Reports urinary frequency Musculoskeletal: Reports gait dysfunction, Reports muscle weakness, Reports myalgias, Denies arm numbness/tingling Integumentary: Denies dryness, Denies foot/leg ulcers, Denies pruritus, Denies rash, Denies wounds Neurological: Reports gait dysfunction, Reports weakness, Denies aphasia, Denies change in speech, Denies confusion, Denies headaches, Denies numbness, Denies paralysis, Denies seizures, Denies syncope Psychiatric: Denies anxiety, Denies confusion, Denies depression Objective - Vital Signs Vital signs: Vital Signs Temp 98.1 F 07/05/18 08:00 Pulse 64 07/05/18 08:00 Resp 18 07/05/18 08:00 BP 191/73 07/05/18 08:00 Pulse Ox 99 07/05/18 08:00 Intake & Output 07/04/18 07/05/18 07/05/18 18:59 06:59 18:59 Intake Total 1600 480 240 Output Total 675 1000 Balance 925 -520 240 Weight 78.5 kg Intake: IV 1000 Sodium Chloride 0.9% 1, 1000 000 ml @ 100 mls/hr IV . Q10H ONE Rx#:[id number] Oral 600 480 240 Output: Urine 675 1000 Other: Voiding Method Indwelling Catheter Indwelling Catheter Indwelling Catheter - Exam General appearance: cooperative, no acute distress - EENT Eyes: EOMI, PERRLA, normal appearance - Neck Neck: no lymphadenopathy, normal ROM, no thyromegaly - Respiratory Respiratory: bilateral: diminished, negative: dullness, rales, rhonchi, wheezing - Cardiovascular Rhythm: regular Heart sounds: normal: S1, S2 - Gastrointestinal General gastrointestinal: no distended, no hepatomegaly, normal bowel sounds, no organomegaly, soft, no splenomegaly, no tenderness - Neurologic Neurologic: CNII-XII intact - Musculoskeletal Musculoskeletal: generalized weakness, strength equal bilaterally - Psychiatric Psychiatric: A&O x's 3, appropriate affect, intact judgment & insight - Labs CBC & Chem 7: 07/05/18 06:03 07/05/18 06:03 Labs: Abnormal Lab Results - Last 24 Hours (Table) 07/05/18 07/05/18 Range/Units 06:03 06:03 WBC 17.7 H (3.8-10.6) k/uL MCV 101.9 H (80.0-100.0) fL MCHC 30.4 L (31.0-37.0) g/dL Plt Count 53 L (150-450) k/uL Neutrophils # 13.9 H (1.3-7.7) k/uL Chloride 120 H (98-107) mmol/L Carbon Dioxide 14 L (22-30) mmol/L BUN 57 H (7-17) mg/dL Creatinine 2.68 H (0.52-1.04) mg/dL AST 46 H (14-36) U/L ALT 64 H (9-52) U/L Total Protein 5.4 L (6.3-8.2) g/dL Albumin 2.7 L (3.5-5.0) g/dL Microbiology - Last 24 Hours (Table) 07/03/18 11:50 Urine Culture - Preliminary Urine,Catheterized Gram Neg Bacilli 07/03/18 11:50 Blood Culture - Preliminary Blood No Growth after 24 hours Assessment and Plan Plan: 1. Sepsis secondary to urinary tract infection and right-sided polynephritis. Patient failed outpatient therapy on doxycycline. Consult with Dr. Decker appreciated. Continue with Rocephin 2 g IV piggyback daily and IV fluids. 2. Acute renal failure with metabolic acidosis on chronic kidney disease stage III with a history of left-sided nephrectomy. Nephrology consult appreciated. Continue sodium bicarb drip. 3. Elevated troponin with no chest pain. Acute coronary syndrome ruled out. Cardiology consult appreciated.. 4. Rheumatoid arthritis. Continue prednisone 5 mg daily along with baclofen 5 mg twice a day and tramadol 50 mg every 6 hours as needed for pain. 5. Hypertension. Continue with atenolol 50 mg daily, Norvasc 5 mg daily added. 6. Insomnia. Continue with Ambien 10 mg at bedtime. 7. GI prophylaxis. Protonix 8. DVT prophylaxis. Subcu heparin The above impression and plan of care have been discussed and directed by signing physician. Dorota Chin nurse practitioner acting as scribe for signing physician.
[2018-07-05] MEDS ORDERED: cloNIDine HCL 0.2 MG TAB PO PRN (23:15)
[2018-07-06] MEDS: DEXTROSE 5% IN WATER 1,000 ML with SODIUM BICARB (1 MEQ/ML) 150 ML IV SCH (00:33)
--- NOTE | 2018-07-06 01:13 | PN ---
PROGRESS NOTE DATE OF SERVICE: 07/05/2018. REASON FOR FOLLOWUP: Urinary tract infection with pyelonephritis. INTERVAL HISTORY: The patient is currently afebrile. The patient has been feeling better. Breathing comfortably. The patient denies having any chest pain. Pain to the right leg is slightly decreased in intensity. No nausea, vomiting. No abdominal pain or any diarrhea. PHYSICAL EXAMINATION: Blood pressure 144/63 with a pulse of 72, temperature 98.3, he is 98% on room air. GENERAL DESCRIPTION: An elderly female, lying in bed in no distress. RESPIRATORY SYSTEM: Unlabored breathing. Clear to auscultation anteriorly. HEART: S1, S2. Regular rate and rhythm. LABS: Hemoglobin is 12 with white count 17.7, BUN of 57, creatinine 2.68. Urine has been finalized with E coli sensitive pathogen. Blood culture has been negative. IMPRESSION/PLAN: The patient with complicated UTI, right-sided pyelonephritis in this patient who did have an E coli pathogen. The patient white count was normal. Creatinine is improving as above. Currently covered with Rocephin to continue for now. Finish therapy with oral antibiotic on discharge. Continue supportive care. MMODL / IJN: [id number] /
[2018-07-06] MEDS: traMADol 50 MG TAB PO PRN ×2 (07:53→22:08)
[2018-07-06] MEDS: SODIUM BICARBONATE TAB 650 MG TAB PO SCH ×2 (07:53→20:32)
[2018-07-06] MEDS: amLODIPine 10 MG TAB PO SCH (07:53)
[2018-07-06] MEDS: DOCUSATE 100 MG CAP PO SCH (07:54)
[2018-07-06] MEDS: HEPARIN SODIUM,PORCINE 5,000 UNIT/ML 1 ML VIAL SQ SCH ×2 (07:54→20:32)
[2018-07-06] MEDS: predniSONE 5 MG TAB PO SCH (07:54)
[2018-07-06] MEDS: ATENOLOL 50 MG TAB PO SCH (07:56)
[2018-07-06 08:57] LABS: Basophils % (A) 0 %; Eosinophils # (A) 0.1 k/uL (0-0.7); Eosinophils % (A) 1 %; HCT 36.8 % (34.0-46.0); HGB 12.1 gm/dL (11.4-16.0); Lymphocytes # (A) 2.9 k/uL (1.0-4.8); Lymphocytes % (A) 21 %; MCH 32.3 pg (25.0-35.0); MCHC 32.9 g/dL (31.0-37.0); MCV 98.2 fL (80.0-100.0); Mean Platelet Volume 9.1; Monocytes # (A) 0.6 k/uL (0-1.0); Monocytes % (A) 4 %; Neutrophils % (A) 72 %; RBC 3.75 m/uL (3.80-5.40); RDW 14.2 % (11.5-15.5); WBC 13.8 k/uL (3.8-10.6)
[2018-07-06 08:58] LABS: Platelet Count 57 k/uL (150-450)
[2018-07-06 10:28] LABS: Albumin 2.9 g/dL (3.5-5.0); Calcium 8.7 mg/dL (8.4-10.2); Magnesium 1.6 mg/dL (1.6-2.3); Total Bilirubin 0.5 mg/dL (0.2-1.3); Total Protein 5.7 g/dL (6.3-8.2)
[2018-07-06 10:31] LABS: Potassium 3.9 mmol/L (3.5-5.1)
--- NOTE | 2018-07-06 10:45 | P.PN ---
Subjective Patient is seen in follow-up for acute kidney injury. Renal function continues to improve with creatinine down to 1.75 today. She denies any vomiting or diarrhea. She is maintained on bicarb drip at 75 mL an hour. Bicarb level up to 22. at 100 mL an hour. Good urine output. Vital signs are stable. General: The patient appeared well nourished and normally developed. HEENT: Head exam is unremarkable. Neck is without jugular venous distension. LUNGS: Lungs are clear to auscultation and percussion. Breath sounds decreased. HEART: Rate and Rhythm are regular. First and second heart sounds normal. No murmurs, rubs or gallops. ABDOMEN: Abdominal exam reveals normal bowel sounds. Non-tender and non- distended. No evidence of peritonitis. EXTREMITITES: No clubbing, cyanosis, or edema. Objective - Vital Signs Vital signs: Vital Signs Temp 98.8 F 07/06/18 06:00 Pulse 70 07/06/18 07:50 Resp 20 07/06/18 06:00 BP 139/65 07/06/18 06:00 Pulse Ox 97 07/06/18 06:00 Intake & Output 07/05/18 07/06/18 07/06/18 18:59 06:59 18:59 Intake Total 315 500 Output Total 750 3600 700 Balance -435 -3100 -700 Intake: Intake, IV Titration 75 Amount Dextrose 5% in Water 1, 75 000 ml @ 75 mls/hr IV . [id number] ANTON with Sodium Bicarb (1 Meq/ml) 150 ml Rx#:[id number] Oral 240 500 Output: Urine 750 3600 700 Uretheral ([place]) 1200 700 Other: Voiding Method Indwelling Catheter Indwelling Catheter Indwelling Catheter - Labs CBC & Chem 7: 07/06/18 08:09 07/06/18 08:09 Labs: Abnormal Lab Results - Last 24 Hours (Table) 07/06/18 07/06/18 Range/Units 08:09 08:09 WBC 13.8 H (3.8-10.6) k/uL RBC 3.75 L (3.80-5.40) m/uL Plt Count 57 L (150-450) k/uL Neutrophils # 10.0 H (1.3-7.7) k/uL Chloride 113 H (98-107) mmol/L BUN 48 H (7-17) mg/dL Creatinine 1.75 H (0.52-1.04) mg/dL ALT 53 H (9-52) U/L Total Protein 5.7 L (6.3-8.2) g/dL Albumin 2.9 L (3.5-5.0) g/dL Microbiology - Last 24 Hours (Table) 07/03/18 11:50 Urine Culture - Final Urine,Catheterized Escherichia coli 07/03/18 11:50 Blood Culture - Preliminary Blood No Growth after 48 hours Assessment and Plan Plan: Assessment: 1. Acute kidney injury mostly prerenal improving with IV hydration. Creatinine down to 1.75 today. 2. Chronic kidney disease stage III secondary to solitary right kidney with baseline creatinine in the range of 1.3-1.5. 3. Status post left-sided nephrectomy secondary to atrophic kidney. 4. Metabolic acidosis secondary to acute kidney injury and IV fluids. Better with IV bicarb. 5. UTI with urine culture positive for E. coli. 6. Diastolic CHF with moderate to severe mitral regurgitation, moderate tricuspid regurgitation and mild to moderate pulmonary hypertension. Plan: Hep-Lock IV fluids. Encouraged oral intake. Repeat electrolytes in the morning.
--- NOTE | 2018-07-06 14:17 | P.PN ---
Subjective Progress Note Date: 07/06/18 This is an 82-year-old female, patient of Dr. Aponte, has a history of rheumatoid arthritis and advanced osteoarthritis. Patient was seen last week at her primary care office and was diagnosed with urinary tract infection and started on doxycycline. She was also having an exacerbation of her RA and started on a tapering dose of dexamethasone. Over the last few days patient reports at home she became weaker and started to have episodes of vomiting. She was unable to get out of bed or tolerate any oral fluids. Upon evaluation in the emergency department, she was noted to have WBCs 21, hemoglobin 12, BUN 65, creatinine 3.6, elevated troponin 0.20, 0.173, UA was positive, influenza scr eening negative. Patient's baseline creatinine is 1.5. 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 She was started on IV ceftriaxone, 500 mL normal saline bolus was given. Blood and urine cultures collected, nephrology, infectious disease, and cardiology consulted. 07/05: Patient has been afebrile, blood pressure 191/73, pulse running between 60s and 80s, pulse ox 99% on room air. White count is slightly down at 17.7, hemoglobin 12, platelet count 53. Patient has been followed by Dr. Horne and creatinine is improved today at 2.68. CO2 14. He has recommended isotonic sodium bicarb drip at 75 mL per hour. Patient has had good urine output and is drinking well. She got up to the shower this morning. Blood pressure is elevated for which Norvasc will be added. [facility] without telemetry. Patient has been seen by cardiology for elevated troponin secondary to acute kidney injury. Echocardiogram reveals EF of 55-60%, moderate to severe mitral regurgitation, moderate tricuspid regurgitation, mild to moderate pulmonary hypertension. Patient is also been seen by Dr. Decker for sepsis and urinary tract infection/pyelonephritis. Patient is currently on Rocephin which is continued. Urine culture is gram- negative bacilli. Blood culture no growth after 24 hours. 07/06: Patient denies having any vomiting or diarrhea. She is continued on a bicarb drip at 75 mL per hour. She has had good urine output. White count is 1 3.8, hemoglobin 12.1, platelet count 57, BUN 48 creatinine 1.75. CO2 was up to 22. Blood sugar 74. Patient has been afebrile, heart rate running in the 50s to 70s, pulse ox 97% on room air. Blood pressure 139/65. Amlodipine was increased this morning to 10 mg daily and patient received 1 dose around midnight for hypertension. Blood culture showing no growth at 48 hours and urine culture finalized with E. coli that is pansensitive. Dr. Decker is planning on oral antibiotics at discharge. Dr. Horne has stopped IV fluids and encourage oral intake. Repeat labs in the morning and increase activity with plan for discharge home tomorrow. PT has evaluated and recommended subacute rehab the patient does not want to go to rehab. Plan is for discharge with [facility] and family will stay with her 10/11. Review of Systems Constitutional: Denies chills, Reports fatigue, Reports improved weakness, Denies fever Cardiovascular: Denies chest pain, Denies edema, Denies irregular heart beat, Denies orthopnea, Denies palpitations, Denies shortness of breath, Denies syncope Respiratory: Denies cough, Denies dyspnea, Denies pain, Denies wheezing Gastrointestinal: Denies abdominal pain, Denies bloating, Denies constipation, Denies diarrhea, Denies heartburn, Denies nausea, Denies vomiting Genitourinary: Reports dysuria, Reports urgency, Reports urinary frequency Musculoskeletal: Reports gait dysfunction, Reports muscle weakness, Reports myalgias, Denies arm numbness/tingling Integumentary: Denies dryness, Denies foot/leg ulcers, Denies pruritus, Denies rash, Denies wounds Neurological: Reports gait dysfunction, Reports weakness, Denies aphasia, Denies change in speech, Denies confusion, Denies headaches, Denies numbness, Denies paralysis, Denies seizures, Denies syncope Psychiatric: Denies anxiety, Denies confusion, Denies depression Objective - Vital Signs Vital signs: Vital Signs Temp 98.8 F 07/06/18 06:00 Pulse 70 07/06/18 07:50 Resp 20 07/06/18 06:00 BP 139/65 07/06/18 06:00 Pulse Ox 97 07/06/18 06:00 Intake & Output 07/05/18 07/06/18 07/06/18 18:59 06:59 18:59 Intake Total 315 500 Output Total 750 3600 700 Balance -435 -2781 -700 Intake: Intake, IV Titration 75 Amount Dextrose 5% in Water 1, 75 000 ml @ 75 mls/hr IV . [id number] ANTON with Sodium Bicarb (1 Meq/ml) 150 ml Rx#:[id number] Oral 240 500 Output: Urine 750 3600 700 Uretheral (Morrow) 1200 700 Other: Voiding Method Indwelling Catheter Indwelling Catheter Indwelling Catheter - Exam General appearance: cooperative, no acute distress, resting comfortably in bed - EENT Eyes: EOMI, PERRLA, normal appearance - Neck Neck: no lymphadenopathy, normal ROM, no thyromegaly - Respiratory Respiratory: bilateral: diminished, negative: dullness, rales, rhonchi, wheezing - Cardiovascular Rhythm: regular Heart sounds: normal: S1, S2 - Gastrointestinal General gastrointestinal: no distended, no hepatomegaly, normal bowel sounds, no organomegaly, soft, no splenomegaly, no tenderness - Neurologic Neurologic: CNII-XII intact - Musculoskeletal Musculoskeletal: generalized weakness, strength equal bilaterally - Psychiatric Psychiatric: A&O x's 3, appropriate affect, intact judgment & insight - Labs CBC & Chem 7: 07/06/18 08:09 07/06/18 08:09 Labs: Abnormal Lab Results - Last 24 Hours (Table) 07/06/18 07/06/18 Range/Units 08:09 08:09 WBC 13.8 H (3.8-10.6) k/uL RBC 3.75 L (3.80-5.40) m/uL Plt Count 57 L (150-450) k/uL Neutrophils # 10.0 H (1.3-7.7) k/uL Chloride 113 H (98-107) mmol/L BUN 48 H (7-17) mg/dL Creatinine 1.75 H (0.52-1.04) mg/dL ALT 53 H (9-52) U/L Total Protein 5.7 L (6.3-8.2) g/dL Albumin 2.9 L (3.5-5.0) g/dL Microbiology - Last 24 Hours (Table) 07/03/18 11:50 Urine Culture - Final Urine,Catheterized Escherichia coli 07/03/18 11:50 Blood Culture - Preliminary Blood No Growth after 48 hours Assessment and Plan Plan: 1. Sepsis secondary to urinary tract infection and right-sided polynephritis. Patient failed outpatient therapy on doxycycline. Consult with Dr. Decker appreciated. Continue with Rocephin 2 g IV piggyback daily and discontinue IV fluids. 2. Acute renal failure with metabolic acidosis on chronic kidney disease stage III with a history of left-sided nephrectomy. Nephrology consult appreciated. Discontinue sodium bicarb drip and start sodium bicarb oral. 3. Elevated troponin with no chest pain. Acute coronary syndrome ruled out. Cardiology consult appreciated.. 4. Rheumatoid arthritis. Continue prednisone 5 mg daily along with baclofen 5 mg twice a day and tramadol 50 mg every 6 hours as needed for pain. 5. Hypertension. Continue with atenolol 50 mg daily, Norvasc increased to 10 mg daily added. Patient received one dose of Catapres last night. 6. Insomnia. Continue with Ambien 10 mg at bedtime. 7. GI prophylaxis. Protonix 8. DVT prophylaxis. Subcu heparin Discharge plan: Home tomorrow with [facility] and family will be staying with her 10/11. The above impression and plan of care have been discussed and directed by signing physician. Dorota Chin nurse practitioner acting as scribe for signing physician.
[2018-07-06] MEDS ORDERED: amLODIPine 5 MG TAB PO ONE (23:14)
--- NOTE | 2018-07-07 06:35 | PN ---
PROGRESS NOTE DATE OF SERVICE: 07/06/2018 REASON FOR FOLLOWUP: Right-sided pyelonephritis, E coli. INTERVAL HISTORY: The patient is afebrile. The patient is breathing more comfortably. Denies having any chest pain. Pain to the right area has improved. No nausea, no vomiting. No abdominal pain. No diarrhea. PHYSICAL EXAMINATION: On examination, blood pressure 155/70 with a pulse of 67, temperature 98.2. She is 98% on room air. General description is an elderly female lying in bed in no distress. RESPIRATORY SYSTEM: Unlabored breathing with decreased breath sounds at the bases. No wheeze. HEART: S1, S2. Regular rate and rhythm. ABDOMEN: Soft, no tenderness. LABS: Hemoglobin is 12.1, white count of 13.8 with BUN of 48, creatinine 1.75. DIAGNOSTIC IMPRESSION AND PLAN: Patient with right-sided pyelonephritis. Urine with an Escherichia coli which is sensitive pathogen. Patient do have PENICILLIN and SULFA allergy. Currently on Rocephin that will be transitioned to oral Cipro for another 7 to 10 days to finish her course of therapy. Continue supportive care. MMODL / IJN: [id number] /
[2018-07-07 08:08] LABS: Basophils # (A) 0.1 k/uL (0-0.2); Basophils % (A) 1 %; Eosinophils # (A) 0.1 k/uL (0-0.7); Eosinophils % (A) 1 %; HCT 35.3 % (34.0-46.0); HGB 10.7 gm/dL (11.4-16.0); Hypochromasia Marked; Lymphocytes # (A) 2.3 k/uL (1.0-4.8); Lymphocytes % (A) 25 %; MCH 31.4 pg (25.0-35.0); MCHC 30.4 g/dL (31.0-37.0); Macrocytosis Slight; Mean Platelet Volume 9.7; Monocytes # (A) 0.8 k/uL (0-1.0); Monocytes % (A) 8 %; Neutrophils % (A) 63 %; RBC 3.41 m/uL (3.80-5.40); RDW 13.9 % (11.5-15.5); WBC 9.5 k/uL (3.8-10.6)
[2018-07-07] MEDS: predniSONE 5 MG TAB PO SCH (08:08)
[2018-07-07 08:09] LABS: MCV 103.4 fL (80.0-100.0); Platelet Count 59 k/uL (150-450)
[2018-07-07] MEDS: ATENOLOL 50 MG TAB PO SCH (08:09)
[2018-07-07] MEDS: SODIUM BICARBONATE TAB 650 MG TAB PO SCH (08:09)
[2018-07-07] MEDS: DOCUSATE 100 MG CAP PO SCH (08:09)
[2018-07-07] MEDS: amLODIPine 10 MG TAB PO SCH (08:09)
[2018-07-07] MEDS: HEPARIN SODIUM,PORCINE 5,000 UNIT/ML 1 ML VIAL SQ SCH (08:10)
[2018-07-07 08:33] LABS: Albumin 2.7 g/dL (3.5-5.0); Calcium 8.5 mg/dL (8.4-10.2); Magnesium 1.4 mg/dL (1.6-2.3); Total Bilirubin 0.8 mg/dL (0.2-1.3); Total Protein 5.6 g/dL (6.3-8.2)
[2018-07-07 08:48] LABS: Potassium 4.2 mmol/L (3.5-5.1)
--- NOTE | 2018-07-07 10:33 | P.PN ---
Subjective Patient is seen in follow-up for acute kidney injury. Renal function continues to improve with creatinine down to 1.51 today. She denies any vomiting or diarrhea. She is off all IV fluids. Oral intake is fair. Good urine output. Vital signs are stable. General: The patient appeared well nourished and normally developed. HEENT: Head exam is unremarkable. Neck is without jugular venous distension. LUNGS: Lungs are clear to auscultation and percussion. Breath sounds decreased. HEART: Rate and Rhythm are regular. First and second heart sounds normal. No murmurs, rubs or gallops. ABDOMEN: Abdominal exam reveals normal bowel sounds. Non-tender and non- distended. No evidence of peritonitis. EXTREMITITES: No clubbing, cyanosis, or edema. Objective - Vital Signs Vital signs: Vital Signs Temp 98.1 F 07/07/18 06:10 Pulse 62 07/07/18 06:10 Resp 17 07/07/18 08:00 BP 138/62 07/07/18 06:10 Pulse Ox 96 07/07/18 06:10 Intake & Output 07/06/18 07/07/18 07/07/18 18:59 06:59 18:59 Intake Total 1200 50 Output Total 1400 Balance -200 50 Intake: Intake, IV Titration 50 Amount cefTRIAXone 2 gm In 50 Sodium Chloride 0.9% 50 ml @ 100 mls/hr IVPB Q24HR ANTON Rx#:[id number] Oral 1200 Output: Urine 1400 Uretheral ([place]) 1400 Other: Voiding Method Toilet Toilet # Voids 4 2 - Labs CBC & Chem 7: 07/07/18 07:22 07/07/18 07:22 Labs: Abnormal Lab Results - Last 24 Hours (Table) 07/06/18 07/07/18 07/07/18 Range/Units 08:09 07:22 07:22 RBC 3.41 L (3.80-5.40) m/uL Hgb 10.7 L (11.4-16.0) gm/dL MCV 103.4 H D (80.0-100.0) fL MCHC 30.4 L (31.0-37.0) g/dL Plt Count 59 L (150-450) k/uL Chloride 113 H 112 H (98-107) mmol/L BUN 48 H 43 H (7-17) mg/dL Creatinine 1.75 H 1.51 H (0.52-1.04) mg/dL Magnesium 1.4 L (1.6-2.3) mg/dL ALT 53 H (9-52) U/L Total Protein 5.7 L 5.6 L (6.3-8.2) g/dL Albumin 2.9 L 2.7 L (3.5-5.0) g/dL Microbiology - Last 24 Hours (Table) 07/03/18 11:50 Blood Culture - Preliminary Blood No Growth after 72 hours Assessment and Plan Plan: Assessment: 1. Acute kidney injury mostly prerenal improving with IV hydration. Creatinine down to 1.51 today. 2. Chronic kidney disease stage III secondary to solitary right kidney with baseline creatinine in the range of 1.3-1.5. 3. Status post left-sided nephrectomy secondary to atrophic kidney. 4. Metabolic acidosis secondary to acute kidney injury and IV fluids. Better. 5. UTI with urine culture positive for E. coli. Maintain on antibiotics. 6. Diastolic CHF with moderate to severe mitral regurgitation, moderate tricuspid regurgitation and mild to moderate pulmonary hypertension. 7. Hypomagnesemia from poor oral intake. 8. Hypertension with chronic kidney disease. Controlled. Plan: Remains off IV fluids. Encouraged oral intake. Repeat electrolytes in the morning. Replace magnesium. 3 g IV today. Anticipate discharge soon. Follow up outpatient in the next 1-2 weeks.
--- NOTE | 2018-07-07 10:52 | P.DS ---
Providers Date of admission: 07/03/18 14:31 Expected date of discharge: 07/07/18 Attending physician: Blanka Beaulieu Consults: 07/03/18 14:31 Consult Physician Urgent Consulting Provider: Kecia Decker Consult Reason/Comments: pyelonephritis, sepsis Do you want consulting provider notified?: Yes Consult Physician Urgent Consulting Provider: Cyndi Ambrose Consult Reason/Comments: Acute renal failure Do you want consulting provider notified?: Yes 07/03/18 19:25 Consult Physician Routine Consulting Provider: Bernard Herbert Consult Reason/Comments: elevated troponin Do you want consulting provider notified?: Yes Primary care physician: [place] Hospital Course: This is an 82-year-old female, patient of Dr. Lyles's, has a history of rheumatoid arthritis and advanced osteoarthritis. Patient was seen last week at her primary care office and was diagnosed with urinary tract infection and started on doxycycline. She was also having an exacerbation of her RA and started on a tapering dose of dexamethasone. Over the last few days patient reports at home she became weaker and started to have episodes of vomiting. She was unable to get out of bed or tolerate any oral fluids. Upon evaluation in the emergency department, she was noted to have WBCs 21, hemoglobin 12, BUN 65, creatinine 3.6, elevated troponin 0.20, 0.173, UA was positive, influenza s creening negative. Patient's baseline creatinine is 1.5. 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 She was started on IV ceftriaxone, 500 mL normal saline bolus was given. Blood and urine cultures collected, nephrology, infectious disease, and cardiology consulted. 07/05: Patient has been afebrile, blood pressure 191/73, pulse running between 60s and 80s, pulse ox 99% on room air. White count is slightly down at 17.7, hemoglobin 12, platelet count 53. Patient has been followed by Dr. Horne and creatinine is improved today at 2.68. CO2 14. He has recommended isotonic sodium bicarb drip at 75 mL per hour. Patient has had good urine output and is drinking well. She got up to the shower this morning. Blood pressure is elevated for which Norvasc will be added. Patient will be transferred to the [facility] floor today without telemetry. Patient has been seen by cardiology for elevated troponin secondary to acute kidney injury. Echocardiogram reveals EF of 55-60%, moderate to severe mitral regurgitation, moderate tricuspid regurgitation, mild to moderate pulmonary hypertension. Patient is also been seen by Dr. Decker for sepsis and urinary tract infection/pyelonephritis. Patient is currently on Rocephin which is continued. Urine culture is gram- negative bacilli. Blood culture no growth after 24 hours. 07/06: Patient denies having any vomiting or diarrhea. She is continued on a bicarb drip at 75 mL per hour. She has had good urine output. White count is 13.8, hemoglobin 12.1, platelet count 57, BUN 48 creatinine 1.75. CO2 was up to 22. Blood sugar 74. Patient has been afebrile, heart rate running in the 50s to 70s, pulse ox 97% on room air. Blood pressure 139/65. Amlodipine was increased this morning to 10 mg daily and patient received 1 dose around midnight for hypertension. Blood culture showing no growth at 48 hours and urine culture finalized with E. coli that is pansensitive. Dr. Decker is planning on oral antibiotics at discharge. Dr. Horne has stopped IV fluids and encourage oral intake. Repeat labs in the morning and increase activity with plan for discharge home tomorrow. PT has evaluated and recommended subacute rehab the patient does not want to go to rehab. Plan is for discharge with [facility] and family will stay with her 10/11. 07/07: Patient denies any new complaints. She has been afebrile, heart rate running in the 60s, blood pressure 130/62, pulse ox 96% on room air. Hemoglobin is 10.7, white count 9.5, platelet count 59, BUN 43 and creatinine 1.51, CO2 23. Patient has been cleared by Dr. Horne for discharge with plan for follow-up in the office. Dr. Decker is recommended Cipro. Patient has decided to go to subacute rehab for therapies and will be discharged to [facility] once all arrangements are completed. Discharge diagnoses: 1. Sepsis secondary to urinary tract infection and right-sided polynephritis. 2. Acute renal failure with metabolic acidosis on chronic kidney disease stage III with a history of left-sided nephrectomy. 3. Elevated troponin with no chest pain. Acute coronary syndrome ruled out. 4. Rheumatoid arthritis. 5. Hypertension. 6. Insomnia. Discharge plan: [facility] today. The above impression and plan of care have been discussed and directed by signing physician. Dorota Chin nurse practitioner acting as scribe for signing physician. Patient Condition at Discharge: Good Plan - Discharge Summary Discharge Rx Participant: Yes New Discharge Prescriptions: New Zolpidem [Ambien] 10 mg PO HS PRN #3 tab PRN Reason: insomnia Docusate [Colace] 100 mg PO DAILY cap amLODIPine [Norvasc] 10 mg PO DAILY #60 tab Sodium Bicarbonate Tab 650 mg PO BID #60 tab Ciprofloxacin HCl [Cipro] 500 mg PO Q12HR #14 tablet Continue predniSONE 5 mg PO DAILY #60 tab Atenolol [Tenormin] 50 mg PO DAILY #60 tab Baclofen 5 mg PO BID PRN PRN Reason: Muscle Spasm traMADol HCL [Ultram] 50 mg PO Q6HR PRN #12 tablet PRN Reason: Pain Discontinued Zolpidem Tartrate 10 mg PO HS Discharge Medication List Atenolol [Tenormin] 50 mg PO DAILY #60 tab 09/11/14 [Rx] predniSONE 5 mg PO DAILY #60 tab 09/11/14 [Rx] Baclofen 5 mg PO BID PRN 07/03/18 [History] Ciprofloxacin HCl [Cipro] 500 mg PO Q12HR #14 tablet 07/07/18 [Rx] Docusate [Colace] 100 mg PO DAILY cap 07/07/18 [Rx] Sodium Bicarbonate Tab 650 mg PO BID #60 tab 07/07/18 [Rx] Zolpidem [Ambien] 10 mg PO HS PRN #3 tab 07/07/18 [Rx] amLODIPine [Norvasc] 10 mg PO DAILY #60 tab 07/07/18 [Rx] traMADol HCL [Ultram] 50 mg PO Q6HR PRN #12 tablet 07/07/18 [Rx] Follow up Appointment(s)/Referral(s): [facility], [NON-STAFF] - Jude Lyles MD [Primary Care Provider] - 1 Week (after discharge from [facility]) Travis Horne DO [STAFF PHYSICIAN] - 2 Weeks Kecia Decker MD [STAFF PHYSICIAN] - 1 Week Discharge Disposition: TRANSFER TO SNF/ECF
--- NOTE | 2018-07-07 13:03 | PN ---
PROGRESS NOTE DATE OF SERVICE: 07/07/2018 REASON FOR FOLLOWUP: E coli, right-sided pyelonephritis. INTERVAL HISTORY: The patient is currently afebrile. The patient is breathing comfortably, feeling better. The patient denies having any chest pain, shortness of breath or cough. No abdominal pain. No diarrhea. PHYSICAL EXAMINATION: On examination, blood pressure 138/62 with a pulse of 62, temperature 98.1. She is 96% on room air. General description is an elderly female up in the chair in no distress. RESPIRATORY SYSTEM: Unlabored breathing, clear to auscultation anteriorly. HEART: S1, S2. Regular rate and rhythm. ABDOMEN: Soft, no tenderness. LABS: Hemoglobin is 10.7, white count 9.5. BUN of 43, creatinine 1.51. Urine with an E coli. Blood culture negative. DIAGNOSTIC IMPRESSION AND PLAN: Patient with Escherichia coli right-sided pyelonephritis. The patient has shown overall clinical improvement on Rocephin antibiotic, transition to Cipro 500 mg twice a day for about a week. Prescription was sent to the pharmacy. Follow up in the office in 1 week. Questions and concerns were answered. MMODL / IJN: [id number] /
[2018-07-07] MEDS: MAGNESIUM SULFATE-D5W PMX 1 GM in DEXTROSE/WATER 1 100ML.BAG IVPB SCH ×3 (13:32→16:15)
[2018-07-07] MEDS: traMADol 50 MG TAB PO PRN (13:41)
[2018-07-07 14:49] VITALS: BP 120/57; PULSE 63; RESP 16; TEMP 98.4
== END 2018-07-07 17:20 | DRG 872 ==
LOC: EC 09:52 → 3SCARD 14:31 → 4MS4W 07-05 12:49
PROVIDERS: ADMIT Internal Medicine; ATTEND Internal Medicine
DX: A41.51 Sepsis due to Escherichia coli [E. coli] (principal); N10 Acute pyelonephritis; N11.9 Chronic tubulo-interstitial nephritis, unspecified; N17.9 Acute kidney failure, unspecified; E87.2 Acidosis; I13.0 Hypertensive heart and chronic kidney disease with heart failure and stage 1 through stage 4 chronic kidney disease, or unspecified chronic kidney disease; I50.30 Unspecified diastolic (congestive) heart failure; R65.20 Severe sepsis without septic shock; I27.20 Pulmonary hypertension, unspecified; E86.9 Volume depletion, unspecified; I08.1 Rheumatic disorders of both mitral and tricuspid valves; E83.42 Hypomagnesemia; M06.9 Rheumatoid arthritis, unspecified; N18.3 Chronic kidney disease, stage 3 (moderate); I25.10 Atherosclerotic heart disease of native coronary artery without angina pectoris; G47.00 Insomnia, unspecified; K80.20 Calculus of gallbladder without cholecystitis without obstruction; M19.90 Unspecified osteoarthritis, unspecified site; G89.29 Other chronic pain; M48.54XS Collapsed vertebra, not elsewhere classified, thoracic region, sequela of fracture; M48.56XS Collapsed vertebra, not elsewhere classified, lumbar region, sequela of fracture; R77.8 Other specified abnormalities of plasma proteins; Z86.718 Personal history of other venous thrombosis and embolism; Z79.52 Long term (current) use of systemic steroids; Z79.899 Other long term (current) drug therapy; Z88.2 Allergy status to sulfonamides; Z87.440 Personal history of urinary (tract) infections; Z90.710 Acquired absence of both cervix and uterus; Z96.652 Presence of left artificial knee joint; Z87.442 Personal history of urinary calculi; Z87.81 Personal history of (healed) traumatic fracture; Z87.01 Personal history of pneumonia (recurrent); Z87.19 Personal history of other diseases of the digestive system; Z90.5 Acquired absence of kidney; Z88.1 Allergy status to other antibiotic agents; Z88.5 Allergy status to narcotic agent; Z88.0 Allergy status to penicillin; Z82.49 Family history of ischemic heart disease and other diseases of the circulatory system; Z80.9 Family history of malignant neoplasm, unspecified
CPT/HCPCS: 36415; 71046; 72110; 74176; 80048; 80053; 81001; 83605; 83735; 84484; 85025; 85027; 85610; 85730; 87040; 87077; 87086; 87186; 87502; 93005; 93306; 96360; 96361; 99291

== ENCOUNTER → 2018-11-03 | Outpatient (CLI) | payer MEDICARE, OTHER ==
--- NOTE | 2018-11-03 15:28 | US ---
EXAMINATION TYPE: US kidneys/renal and bladder DATE OF EXAM: 11/03/2018 COMPARISON: Ultrasound 05/20/2012 CLINICAL HISTORY: N17.9 Acute Kidney Injury. LK removed due to atrophy per patient in 2006. EXAM MEASUREMENTS: Right Kidney: 10.6 x 3.7 x 4.1 cm Left Kidney: Surgically absent Right Kidney: Cortical thinning. Renal cortex appears lobular and heterogenous. Possible superior m id/medial lesion visualized - 3.0 x 3.2 x 2.6 cm Left Kidney: Surgically absent Bladder: mildly distended, suboptimally visualized Bilateral Jets not seen This exam is compared to 05/20/2012. Superior pole mass is not identified previously IMPRESSION: 1. Right kidney may have a [address] is recommended. 2. Surgically absent kidney A [place] level critical message alert has been initiated for Cyndi Ambrose MD via the [facility] Critical Results System on 11/03/2018 3:25 PM. This message alert has been sent to Cyndi Ambrose MD via the preferences provided by the clinician for the receipt of Radiology Critical Findings. Message ID [id number].
== END | disposition home or self-care (01) ==
LOC: RADUSWWP 09:35
PROVIDERS: ATTEND Internal Medicine Nephrology
DX: N17.9 Acute kidney failure, unspecified (principal); Z90.5 Acquired absence of kidney
CPT/HCPCS: 76770

== ENCOUNTER → 2018-11-18 | Outpatient (CLI) | payer MEDICARE, OTHER ==
--- NOTE | 2018-11-18 14:20 | CT ---
EXAMINATION TYPE: CT abdomen wo con DATE OF EXAM: 11/18/2018 COMPARISON: Ultrasound 11/03/2018, CT abdomen 07/03/2018 HISTORY: Rt renal tumor CT DLP: 196.1 mGycm Automated exposure control for dose reduction was used. TECHNIQUE: Helical acquisition of images was performed from the lung bases through the top of iliac crest to include entire abdomen. CONTRAST: Performed with Oral Contrast and without IV contrast. FINDINGS: LUNG BASES: Linear changes at the right lung are most typical of scar or atelectasis. Anteriorly ther e is subpleural nodularity which appears inflammatory. LIVER/GB: Cholelithiasis noted. PANCREAS: No significant abnormality is seen. SPLEEN: Splenic granuloma seen. ADRENALS: No significant abnormality is seen. KIDNEYS: Previous left nephrectomy changes are identified. There does appear to be a lobulated contou r to the right kidney. Lack of contrast limits assessment for neoplasm. No obvious hydronephrosis or nephrolithiasis. There is particular limitation involving the upper pole posterior right kidney and t here is some suspicion for a neoplasm corresponding to the ultrasound abnormality. BOWEL: No significant abnormality is seen. LYMPH NODES: No significant abnormality is appreciated. OSSEOUS STRUCTURES: Hypertrophic and degenerative disc disease noted. Chronic appearing multiple com pression deformities are seen FREE AIR: No free air is visualized. OTHER: Aorta of normal caliber with atherosclerotic changes. No free fluid. IMPRESSION: 1. There is a focal localized area of lobulation involving the posterior upper pole of the right kidn ey which likely corresponds to the ultrasound abnormality. MRI is recommended to exclude neoplasm. I f the patient has renal compromise a noncontrast MRI would still be valuable in depicting any lesion. 2. Cholelithiasis. 3. Post left nephrectomy 4. Multiple chronic appearing vertebral compression deformities with some mild progression.
== END | disposition home or self-care (01) ==
LOC: RADCTMAIN 12:40
PROVIDERS: ATTEND Internal Medicine Geriatric Medicine
DX: K80.20 Calculus of gallbladder without cholecystitis without obstruction (principal); Z90.5 Acquired absence of kidney
CPT/HCPCS: 74150

== ENCOUNTER → 2018-12-09 | Outpatient (CLI) | payer MEDICARE, OTHER ==
--- NOTE | 2018-12-10 01:15 | MR ---
MR scan of the kidneys. History renal mass. Comparison CT scan 09/22/2011 and 07/03/2018. TECHNIQUE: Multiplanar multiecho imaging of the abdomen was performed without and with IV contrast. The contrast was gadolinium 5 mL. FINDINGS: There is a left nephrectomy. There is no adrenal mass. Right kidney shows no hydronephrosis. There is a mixed signal mass at the posterior upper pole right kidney that measures 3.4 cm in diameter and sh ows mixed enhancement. Lesion shows less enhancement than adjacent normal renal cortex. Liver shows no focal defect. Spleen has normal size and contour. There is no pancreatic mass. There i s no evidence of retroperitoneal adenopathy. Abdominal aorta shows atheromatous change. There is no s ign of ascites. There is no pleural effusion. IMPRESSION: Solid renal mass upper pole right kidney not changed in size compared to CT scan of 07/03/2018 but suzanne ears to be new or increased compared to older CT scan of 09/22/2011. 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
== END | disposition home or self-care (01) ==
LOC: RADMRIMAIN 11:47
PROVIDERS: ATTEND Urology
DX: D41.01 Neoplasm of uncertain behavior of right kidney (principal)
CPT/HCPCS: 74183; A9585

== ENCOUNTER → 2018-12-30 | Outpatient (CLI) | payer MEDICARE, OTHER ==
[~2018-12-30] MED LIST changes: +DENOSUMAB 60 MG/ML 1 ML SYRINGE SQ NR; -DENOSUMAB 60 MG/ML 1 ML SYRINGE SQ ONE
[2018-12-30 13:15] VITALS: BP 157/65; PULSE 71; RESP 16; TEMP 98.8
== END | disposition home or self-care (01) ==
LOC: PROCWHC3 12:54
PROVIDERS: ATTEND Internal Medicine Geriatric Medicine
DX: M81.0 Age-related osteoporosis without current pathological fracture (principal)
CPT/HCPCS: 96372; J0897

== ENCOUNTER → 2019-01-11 | Outpatient (CLI) | payer MEDICARE, OTHER ==
[2019-01-11 14:03] LABS: HCT 38.6 % (34.0-46.0); HGB 12.1 gm/dL (11.4-16.0); Hypochromasia Marked; MCH 33.3 pg (25.0-35.0); MCHC 31.4 g/dL (31.0-37.0); MCV 106.1 fL (80.0-100.0); Macrocytosis Moderate; Mean Platelet Volume 7.9; Platelet Count 102 k/uL (150-450); RBC 3.64 m/uL (3.80-5.40); RDW 15.3 % (11.5-15.5); WBC 7.4 k/uL (3.8-10.6)
[2019-01-11 14:11] LABS: Appearance,Urine Cloudy (Clear); Bilirubin,Urine Negative (Negative); Blood,Urine Large (Negative); Color,Urine Light Red; Glucose,Urine (UA) Negative (Negative); Ketones,Urine Negative (Negative); Leukocyte Esterase,Urine Large (Negative); Mucus,Urine Rare /hpf; Nitrite,Urine Negative (Negative); Protein,Urine Trace (Negative); RBC,Urine >182 /hpf (0-5); Specific Gravity,Urine 1.015 (1.001-1.035); Squamous Epithelial Cell,Urine 2 /hpf (0-4); Urobilinogen,Urine <2.0 mg/dL (<2.0); WBC,Urine 156 /hpf (0-5)
[2019-01-11 19:39] LABS: Iron Saturation 30.58 (12.00-45.00)
[2019-01-11 19:49] LABS: African American GFR (CKD) 37.2 (60.0-200.0); Albumin 4.4 g/dL (3.80-4.90); Albumin/Globulin Ratio 2.2 (1.60-3.17); BUN/Creat Ratio 25.33 Ratio (12.00-20.00); Calcium 9.5 mg/dL (8.7-10.3); Magnesium 1.9 mg/dL (1.5-2.4); Phosphorus 3.3 mg/dL (2.4-5.1); Potassium 4.8 mmol/L (3.5-5.5); Total Bilirubin 0.7 mg/dL (0.3-1.2); Total Protein 6.4 g/dL (6.2-8.2)
[2019-01-11 19:50] LABS: Vitamin D 25 Hydroxy 21.7 ng/mL (30.0-100.0)
[2019-01-11 19:51] LABS: Ferritin 32.6 ng/mL (10.0-291.0)
== END | disposition home or self-care (01) ==
LOC: LABWHC1 12:51
PROVIDERS: ATTEND Nurse Practitioner Family
DX: N17.9 Acute kidney failure, unspecified (principal)
CPT/HCPCS: 36415; 80053; 81001; 82306; 82728; 83540; 83550; 83735; 83970; 84100; 84550; 85027

== ENCOUNTER → 2019-03-09 | Outpatient (CLI) | payer MEDICARE, OTHER ==
--- NOTE | 2019-03-09 10:57 | CT ---
EXAMINATION TYPE: CT abdomen wo con DATE OF EXAM: 03/09/2019 HISTORY: Right kidney tumor CT DLP: 362 mGycm. Automated Exposure Control for Dose Reduction was Utilized. TECHNIQUE: CT scan of the abdomen is performed with oral but without IV contrast. COMPARISON: CT abdomen November 18, 2018 and older studies. MRI kidney December 09, 2018 FINDINGS: Within the limitations of a non-contrast study, the following observations are made. LUNG BASES: Mild linear scarring and/or atelectasis right lung base is redemonstrated. Cardiomegaly i s again seen. LIVER/GB: Dependent small round gallstone in gallbladder redemonstrated. PANCREAS: No significant abnormality is seen. SPLEEN: Occasional punctate calcifications throughout the spleen consistent with product of old granu lomatous disease. ADRENALS: No significant abnormality is seen. KIDNEYS: Left-sided nephrectomy changes redemonstrated. Right kidney redemonstrates some cortical thinning with heterogeneous oval partially exophytic hyperd ense lesion posteriorly upper pole level measuring 3.1 x 2.1 cm. This is not significantly changed in size back through July 03, 2018 CT but remains suspicious as there is enhancement on MRI noted. The re is new mild right-sided hydronephrosis and proximal hydroureter without mid ureter dilatation. No obstructing or right renal calculi identified BOWEL: No significant abnormality is seen. LYMPH NODES: No greater than 1cm abdominal lymph nodes are appreciated. OSSEOUS STRUCTURES: Osseous structures are demineralized. There are multilevel chronic compression ty pe fracture deformity is again seen. Most prominent compression fracture deformity remains present at T12 level not significantly changed from most recent CT. OTHER: Moderate calcified plaque of the aorta. 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
== END | disposition home or self-care (01) ==
LOC: RADCTMAIN 09:29
PROVIDERS: ATTEND Internal Medicine Geriatric Medicine
DX: D49.511 Neoplasm of unspecified behavior of right kidney (principal)
CPT/HCPCS: 74150

== ENCOUNTER 2019-03-15 10:42 | Inpatient (IN) | payer MEDICARE, OTHER ==
[2019-03-15] MEDS ORDERED: KETOROLAC 60 MG/2 ML VIAL IVP STA (11:19)
[2019-03-15] MEDS ORDERED: HYDROmorphone 1 MG/ML 1 ML SYRINGE IVP STA (11:19)
[2019-03-15] MEDS ORDERED: ONDANSETRON 4 MG/2 ML VIAL IVP STA (11:21)
--- NOTE | 2019-03-15 11:25 | ED ---
General Adult HPI - General Chief complaint: Back Pain/Injury Stated complaint: back pain, nausea Time Seen by Provider: 03/15/19 11:00 Source: patient, RN notes reviewed, old records reviewed Mode of arrival: ambulatory Limitations: no limitations - History of Present Illness Initial comments: This is an 83-year-old female presents emergency Department with a known mass in her right kidney. Patient states 2 weeks ago she had a CAT scan showed hydron ephrosis. Patient states since Thursday she has been having increasing pain in the right CVA area and it reminds her of the time she had pyelonephritis. Patient comes in to be checked for infection as well as have her pain controlled. Patient denies any abdominal pain patient denies any vomiting but states she does have nausea. Patient denies any diarrhea per patient denies any recent injury or trauma. Patient denies chest pain difficulty breathing shortness of breath. - Related Data Home Medications Medication Instructions Recorded Confirmed Buprenorphine [Buprenorphine 5 5 mcg TRANSDERM WEEKLY 09/09/18 03/04/19 MCG/HR] Previous Rx's Medication Instructions Recorded Atenolol [Tenormin] 50 mg PO DAILY #60 tab 09/11/14 predniSONE 5 mg PO DAILY #60 tab 09/11/14 Docusate [Colace] 100 mg PO DAILY cap 07/07/18 Sodium Bicarbonate Tab 650 mg PO BID #60 tab 07/07/18 Zolpidem [Ambien] 10 mg PO HS PRN #3 tab 07/07/18 amLODIPine [Norvasc] 10 mg PO DAILY #60 tab 07/07/18 traMADol HCL [Ultram] 50 mg PO Q6HR PRN #12 tablet 07/07/18 Allergies Allergy/AdvReac Type Severity Reaction Status Date / Time codeine Allergy Rash/Hives Verified 03/15/19 11:00 nitrofurantoin Allergy Rash/Hives Verified 03/15/19 11:00 macrocrystalline [From Macrodantin] Penicillins Allergy Anaphylaxis Verified 03/15/19 11:00 doxycycline AdvReac Nausea & Verified 03/15/19 11:00 Vomiting Sulfa (Sulfonamide AdvReac Nausea & Verified 03/15/19 11:00 Antibiotics) Vomiting Review of Systems ROS Statement: Those systems with pertinent positive or pertinent negative responses have been documented in the HPI. ROS Other: All systems not noted in ROS Statement are negative. Past Medical History Past Medical History: Coronary Artery Disease (CAD), Deep Vein Thrombosis (DVT), Hypertension, Pneumonia, Renal Disease, Rheumatoid Arthritis (RA) Additional Past Medical History / Comment(s): vertebral fracture T-12, L1-3 History of Any Multi-Drug Resistant Organisms: None Reported, Other MDRO Past Surgical History: Hysterectomy, Joint Replacement, Orthopedic Surgery Additional Past Surgical History / Comment(s): left knee replacement, LEFT kidney removed, RIGHT HIP REPAIRED 06/2014 Past Anesthesia/Blood Transfusion Reactions: No Reported Reaction, Blood Transfusion Reaction Additional Past Anesthesia/Blood Transfusion Reaction / Comment(s): pt stated that she was given blood before and she went into "pulmonary edema.". blood transfusion reaction before 1979 Past Psychological History: No Psychological Hx Reported Smoking Status: Never smoker Past Alcohol Use History: None Reported Past Drug Use History: None Reported - Past Family History Mother Family Medical History: Coronary Artery Disease (CAD) Brother(s) Family Medical History: Cancer General Exam - General Exam Comments Initial Comments: GENERAL: Patient is well-developed and well-nourished. Patient is nontoxic and well- hydrated and is in mild distress. ENT: Neck is soft and supple. No significant lymphadenopathy is noted. Oropharynx is clear. Moist mucous membranes. Neck has full range of motion without eliciting any pain. EYES: The sclera were anicteric and conjunctiva were pink and moist. Extraocular movements were intact and pupils were equal round and reactive to light. Eyelids were unremarkable. PULMONARY: Unlabored respirations. Good breath sounds bilaterally. No audible rales rhonchi or wheezing was noted. CARDIOVASCULAR: There is a regular rate and rhythm without any murmurs gallops or rubs. ABDOMEN: Soft and nontender with normal bowel sounds. SKIN: Skin is clear with no lesions or rashes and otherwise unremarkable. NEUROLOGIC: Patient is alert and oriented x3. Cranial nerves II through XII are grossly intact. Motor and sensory are also intact. Normal speech, volume and content. Symmetrical smile. MUSCULOSKELETAL: Normal extremities with adequate strength and full range of motion. Patient has right CVA tenderness. LYMPHATICS: No significant lymphadenopathy is noted PSYCHIATRIC: Normal psychiatric evaluation. Limitations: no limitations Course Vital Signs 03/15/19 03/15/19 11:00 13:00 Temperature 98.6 F Pulse Rate 88 72 Respiratory 18 18 Rate Blood Pressure 113/58 144/60 O2 Sat by Pulse 95 Oximetry Medical Decision Making - Lab Data Result diagrams: 03/15/19 11:35 03/15/19 11:35 Lab Results 03/15/19 03/15/19 03/15/19 Range/Units 11:35 11:35 11:35 WBC 16.9 H (3.8-10.6) k/uL RBC 4.37 (3.80-5.40) m/uL Hgb 14.0 (11.4-16.0) gm/dL Hct 43.5 (34.0-46.0) % MCV 99.5 D (80.0-100.0) fL MCH 32.0 (25.0-35.0) pg MCHC 32.1 (31.0-37.0) g/dL RDW 13.3 (11.5-15.5) % Hypochromasia Slight Sodium 136 L (137-145) mmol/L Potassium 5.1 (3.5-5.1) mmol/L Chloride 103 (98-107) mmol/L Carbon Dioxide 20 L (22-30) mmol/L Anion Gap 13 mmol/L BUN 49 H (7-17) mg/dL Creatinine 2.56 H (0.52-1.04) mg/dL Est GFR (CKD-EPI)AfAm 20 (>60 ml/min/1.73 sqM) Est GFR (CKD-EPI)NonAf 17 (>60 ml/min/1.73 sqM) Glucose 100 H (74-99) mg/dL Calcium 8.9 (8.4-10.2) mg/dL Total Bilirubin 0.9 (0.2-1.3) mg/dL AST 34 (14-36) U/L ALT 9 (9-52) U/L Alkaline Phosphatase 45 (38-126) U/L Total Protein 7.0 (6.3-8.2) g/dL Albumin 3.9 (3.5-5.0) g/dL Urine Color Yellow Urine Appearance Turbid H (Clear) Urine pH 6.0 (5.0-8.0) Ur Specific [place] 1.013 (1.001-1.035) Urine Protein 1+ H (Negative) Urine Glucose (UA) Negative (Negative) Urine Ketones Negative (Negative) Urine Blood Small H (Negative) Urine Nitrite Negative (Negative) Urine Bilirubin Negative (Negative) Urine Urobilinogen <2.0 (<2.0) mg/dL Ur Leukocyte Esterase Large H (Negative) Urine RBC 6 H (0-5) /hpf Urine WBC >182 H (0-5) /hpf Urine WBC Clumps Many H (None) /hpf Ur Squamous Epith Cells 1 (0-4) /hpf Urine Bacteria Moderate H (None) /hpf Disposition Clinical Impression: Pyelonephritis, Renal insufficiency Disposition: ADMITTED IP TO THIS HOSP Referrals: Jude Lyles MD [Primary Care Provider] - 1-2 days Time of Disposition: 13:13
[2019-03-15 12:14] LABS: Albumin 3.9 g/dL (3.5-5.0); Calcium 8.9 mg/dL (8.4-10.2); Total Bilirubin 0.9 mg/dL (0.2-1.3)
[2019-03-15 12:16] LABS: Basophils # (A) 1.9 k/uL (0-0.2); Basophils % (A) 11 %; Eosinophils % (A) 0 %; HCT 43.5 % (34.0-46.0); Hypochromasia Slight; Lymphocytes # (A) 1.5 k/uL (1.0-4.8); Lymphocytes % (A) 9 %; MCHC 32.1 g/dL (31.0-37.0); Mean Platelet Volume 7.8; Monocytes # (A) 1.3 k/uL (0-1.0); Monocytes % (A) 8 %; Neutrophils # (A) 13.9 k/uL (1.3-7.7); Neutrophils % (A) 82 %; RBC 4.37 m/uL (3.80-5.40); RDW 13.3 % (11.5-15.5); WBC 16.9 k/uL (3.8-10.6)
[2019-03-15 12:22] LABS: Potassium 5.1 mmol/L (3.5-5.1)
[2019-03-15 12:26] LABS: MCV 99.5 fL (80.0-100.0)
[2019-03-15 12:41] LABS: Appearance,Urine Turbid (Clear); Bacteria,Urine Moderate /hpf; Bilirubin,Urine Negative (Negative); Blood,Urine Small (Negative); Color,Urine Yellow; Glucose,Urine (UA) Negative (Negative); Ketones,Urine Negative (Negative); Leukocyte Esterase,Urine Large (Negative); Nitrite,Urine Negative (Negative); Protein,Urine 1+ (Negative); RBC,Urine 6 /hpf (0-5); Specific Gravity,Urine 1.013 (1.001-1.035); Squamous Epithelial Cell,Urine 1 /hpf (0-4); Urobilinogen,Urine <2.0 mg/dL (<2.0)
[2019-03-15] MEDS ORDERED: cefTRIAXone IN SWFI 1,000 MG/10 ML SYRINGE IVP STA ×2 (12:50→13:16)
[2019-03-15 13:14] LABS: Platelet Count 85 k/uL (150-450)
[2019-03-15] MEDS ORDERED: SODIUM CHLORIDE 0.9% 1,000 ML IV ONE (13:14)
[2019-03-15] MEDS ORDERED: HYDROmorphone 0.5 MG/0.5 ML SYRINGE IVP PRN (13:17)
[2019-03-15] MEDS ORDERED: ONDANSETRON 4 MG/2 ML VIAL IVP PRN (13:20)
[2019-03-15] MEDS: traMADol 50 MG TAB PO PRN (20:19)
[2019-03-15] MEDS: ZOLPIDEM 10 MG TAB PO PRN (21:51)
[2019-03-16] MEDS: traMADol 50 MG TAB PO PRN ×3 (05:24→20:06)
[2019-03-16] MEDS ORDERED: amLODIPine 2.5 MG TAB PO SCH (09:00)
[2019-03-16] MEDS: FOLIC ACID 1 MG TAB PO SCH (09:30)
[2019-03-16] MEDS: CHOLECALCIFEROL 1,000 UNIT TAB PO SCH (09:30)
[2019-03-16] MEDS: predniSONE 5 MG TAB PO SCH (09:30)
[2019-03-16] MEDS: ATENOLOL 50 MG TAB PO SCH (09:30)
[2019-03-16] MEDS: ALLOPURINOL 100 MG TAB PO SCH (09:31)
[2019-03-16 11:43] LABS: Calcium 8.3 mg/dL (8.4-10.2); Potassium 4.5 mmol/L (3.5-5.1)
--- NOTE | 2019-03-16 11:57 | US ---
EXAMINATION TYPE: US kidneys/renal and bladder DATE OF EXAM: 03/16/2019 COMPARISON: MRI December [address] abdomen March 09, 2019 CLINICAL HISTORY: hydro on OP CT . History of hydronephrosis, history of left nephrectomy, exam done portable. EXAM MEASUREMENTS: Right Kidney: 10.7 x 4.8 x 4.5 cm Right Kidney: 3.5 x 3.3 x 3.0cm isoechoic lesion superior pole Left Kidney: surgically absent Bladder: not fully distended, appears wnl Bilateral Jets seen: no Gallbladder: 1.2cm echogenic shadowing stone There is no evidence for hydronephrosis at this point in time in right kidney. No nephrolithiasis is seen. Cortical thinning is present. Persistent 3.5 cm upper pole mass seen best on MRI with enhancem ent. Incidental shadowing gallstone. The urinary bladder is satisfactorily distended. Bilateral uret eral jets are not seen. IMPRESSION: No hydronephrosis currently. Persistent suspicious mass or neoplasm upper pole right yogesh crenshaw.
--- NOTE | 2019-03-16 12:11 | P.NPCON ---
History of Present Illness - Reason for Consult acute renal failure - History of Present Illness Reason for consultation: Acute kidney injury on chronic kidney disease History of present illness: Patient is a 83-year-old female seen in initial consultation for acute kidney injury on chronic kidney disease. Patient has chronic kidney disease stage III with baseline creatinine near 1.5. Etiology solitary right kidney. Patient states her left kidney was atrophied and she underwent nephrectomy several years ago. Patient's creatinine this admission was 2.56 and is 2.54 today. She presented to the hospital due to right-sided flank pain that woke her up in the middle of the night. Patient was concerned she was having another episode of pyelonephritis. She also had 2 episodes of emesis prior to admission. She denies use of nonsteroidals. No history of diabetes. Denies family history of renal disease. No hematuria or dysuria. Patient's blood pressure has been fairly stable. Lowest reading was 95/57. This morning it was 119/66. She is currently receiving IV Rocephin as well as normal saline at 75 mL an hour. Oral intake is fair. No further vomiting this admission. Patient states she also has a right-sided renal mass. Her CAT scan from 03/09/2019 revealed a 3.1 x 2.1 cm right adrenal mass. Patient states this is being followed by urology outpatient. Additionally there was right-sided hydronephrosis noted but it was mild. Vital signs are stable. General: The patient appeared well nourished and normally developed. HEENT: Head exam is unremarkable. Neck is without jugular venous distension. LUNGS: Lungs are clear to auscultation and percussion. Breath sounds decreased. HEART: Rate and Rhythm are regular. First and second heart sounds normal. No murmurs, rubs or gallops. ABDOMEN: Abdominal exam reveals normal bowel sounds. Non-tender and non- distended. No evidence of peritonitis. EXTREMITITES: No clubbing, cyanosis, or edema. Past Medical History Past Medical History: Coronary Artery Disease (CAD), Deep Vein Thrombosis (DVT), Hypertension, Pneumonia, Renal Disease, Rheumatoid Arthritis (RA) Additional Past Medical History / Comment(s): vertebral fracture T-12, L1-3 History of Any Multi-Drug Resistant Organisms: None Reported, Other MDRO Past Surgical History: Hysterectomy, Joint Replacement, Orthopedic Surgery Additional Past Surgical History / Comment(s): left knee replacement, LEFT kidney removed, RIGHT HIP REPAIRED 06/2014 Past Anesthesia/Blood Transfusion Reactions: No Reported Reaction, Blood Transfusion Reaction Additional Past Anesthesia/Blood Transfusion Reaction / Comment(s): pt stated that she was given blood before and she went into "pulmonary edema.". blood transfusion reaction before 1979 Past Psychological History: No Psychological Hx Reported Smoking Status: Never smoker Past Alcohol Use History: None Reported Past Drug Use History: None Reported - Past Family History Mother Family Medical History: Coronary Artery Disease (CAD) Brother(s) Family Medical History: Cancer Medications and Allergies Home Medications Medication Instructions Recorded Confirmed Type Atenolol [Tenormin] 50 mg PO DAILY #60 tab 09/11/14 03/15/19 Rx predniSONE 5 mg PO DAILY #60 tab 09/11/14 03/15/19 Rx Zolpidem [Ambien] 10 mg PO HS PRN #3 tab 07/07/18 03/15/19 Rx traMADol HCL [Ultram] 50 mg PO Q6HR PRN #12 tablet 07/07/18 03/15/19 Rx Buprenorphine [Buprenorphine 5 5 mcg TRANSDERM FR 09/09/18 03/15/19 History MCG/HR] Allopurinol [Zyloprim] 100 mg PO DAILY 03/15/19 03/15/19 History Cholecalciferol [Vitamin D3 (25 1,000 unit PO DAILY 03/15/19 03/15/19 History Mcg = 1000 Iu)] Folic Acid 0.8 mg PO DAILY 03/15/19 03/15/19 History amLODIPine [Norvasc] 2.5 mg PO DAILY 03/15/19 03/15/19 History Allergies Allergy/AdvReac Type Severity Reaction Status Date / Time codeine Allergy Rash/Hives Verified 03/15/19 13:32 nitrofurantoin Allergy Rash/Hives Verified 03/15/19 13:32 macrocrystalline [From Macrodantin] Penicillins Allergy Anaphylaxis Verified 03/15/19 13:32 doxycycline AdvReac Nausea & Verified 03/15/19 13:32 Vomiting Sulfa (Sulfonamide AdvReac Nausea & Verified 03/15/19 13:32 Antibiotics) Vomiting Physical Exam Vitals: Vital Signs Temp Pulse Pulse Resp BP BP Pulse Ox 03/16/19 07:00 98.2 F 90 16 119/66 96 03/16/19 01:40 98.2 F 80 118/45 93 L 03/15/19 18:40 97.8 F 65 95/57 99 03/15/19 15:00 98.1 F 66 17 145/66 100 03/15/19 13:49 98.1 F 77 18 113/55 96 03/15/19 13:00 72 18 144/60 95 Intake and Output 03/15/19 03/16/19 03/16/19 22:59 06:59 14:59 Intake Total 580 1180 Balance 580 1180 Intake: Intake, IV Titration 100 700 Amount Sodium Chloride 0.9% 1, 100 700 000 ml @ 100 mls/hr IV . Q10H ONE Rx#:[id number] Oral 480 480 Other: Voiding Method Toilet # Voids 1 1 1 Results - Lab Results Most recent lab results Calcium 8.3 mg/dL (8.4-10.2) L 03/16/19 10:47 03/15/19 11:35 03/16/19 10:47 Assessment and Plan Plan: Assessment: 1. Acute kidney injury secondary to ATN secondary to hypotension and infection. Also concern for obstructive uropathy. Renal function stable with creatinine near 2.5 this admission. 2. Chronic kidney disease stage III secondary to solitary right kidney with ba seline creatinine near 1.5. 3. Metabolic acidosis secondary to acute kidney injury and IV fluids. 4. Right renal mass being followed by urology. 5. Mild right-sided hydronephrosis noted on CAT scan done earlier this month. Urology has been consulted. 6. UTI maintain on antibiotics. Urine culture pending. 7. History of rheumatoid arthritis maintained on prednisone. 8. Chronic diastolic CHF with moderate to severe mitral regurgitation, moderate tricuspid regurgitation and mild to moderate pulmonary hypertension. Currently compensated. Plan: Maintain normal saline at 75 mL an hour. Add oral sodium bicarbonate. Follow-up cultures. Follow-up renal ultrasound. Repeat electrolytes in the morning. Hold all antihypertensives. Thank you for the consultation. I will continue to follow the patient with you during her hospital stay.
[2019-03-16] MEDS: SODIUM BICARBONATE TAB 650 MG TAB PO SCH ×2 (12:17→20:06)
--- NOTE | 2019-03-16 14:52 | P.HPIM ---
History of Present Illness H&P Date: 03/16/19 This is an 83-year-old female patient of Dr. Lyles and Dr. Johnson with a past medical history of rheumatoid arthritis, chronic kidney disease stage III with history of left-sided nephrectomy secondary to atrophic kidney, hypertension and advanced osteoarthritis. Patient has a known mass in her right kidney. She had a CAT scan on March 09 revealed stable right renal posterior upper pole in enhancing solid mass strongly suspicious for renal cell carcinoma especially given patient's history of left-sided renal cancer. Lesion measures 3.1 x 2.1 cm not significantly changed from June 2017. There is a new mild right-sided hydronephrosis and proximal hydroureter without mid ureter dilatation. No obstructing or right renal calculi identified. Patient complains of his increasing pain to the right flank area since Thursday she denies any abdominal pain. She has had nausea without vomiting, no diarrhea. She complains of chills. She states the pain is mostly on the right side but when she has strong spasms that goes across the entire lower back. Patient was seen in the office by Dr. Arauz on and there was concern for renal cell carcinoma based on the CAT scan report. Patient was to have a repeat visit to decide on next steps. Patient came into [facility] emergency center for evaluation. She was afebrile, vital signs stable. She presented with leukocytosis 16.9, BUN was 49 and creatinine 2.56, CO2 20. Baseline creatinine is 1.5. Liver function tests within normal limits, urinalysis turbid, leukoesterase large, WBCs greater than 182, WBC clumps many, bacteria moderate. Patient was started on ceftriaxone and admitted to the [facility] floor. Urine culture is in progress. Blood culture will be added. Consults admitted for nephrology and urology. Review of Systems Constitutional: Reports fatigue, Reports poor appetite, Reports weakness, Denies chills, Denies fever Eyes: denies blurred vision, denies pain Ears, nose, mouth and throat: Denies dysphagia, Denies headache, Denies nasal congestion, Denies nasal discharge, Denies sore throat, Denies vertigo Cardiovascular: Denies chest pain, Denies dyspnea on exertion, Denies edema, Denies leg edema, Denies lightheadedness, Denies shortness of breath, Denies syncope Respiratory: Denies cough, Denies cough with sputum, Denies dyspnea, Denies excessive sputum, Denies hemoptysis, Denies home oxygen, Denies respiratory infections, Denies wheezing Gastrointestinal: Reports abdominal pain, Reports loss of appetite, Denies diarrhea, Denies nausea, Denies vomiting Genitourinary: Reports flank pain, Denies dysuria, Denies hematuria Musculoskeletal: Reports muscle weakness, Denies myalgias Integumentary: Denies pruritus, Denies rash, Denies wounds Neurological: Denies change in mentation, Denies change in speech, Denies numbness, Denies seizures, Denies weakness Psychiatric: Denies anxiety, Denies depression Endocrine: Denies fatigue, Denies weight change Past Medical History Past Medical History: Coronary Artery Disease (CAD), Deep Vein Thrombosis (DVT), Hypertension, Pneumonia, Renal Disease, Rheumatoid Arthritis (RA) Additional Past Medical History / Comment(s): vertebral fracture T-12, L1-3 History of Any Multi-Drug Resistant Organisms: None Reported, Other MDRO Past Surgical History: Hysterectomy, Joint Replacement, Orthopedic Surgery Additional Past Surgical History / Comment(s): left knee replacement, LEFT kidney removed, RIGHT HIP REPAIRED 06/2014 Past Anesthesia/Blood Transfusion Reactions: No Reported Reaction, Blood Transfusion Reaction Additional Past Anesthesia/Blood Transfusion Reaction / Comment(s): pt stated that she was given blood before and she went into "pulmonary edema.". blood transfusion reaction before 1979 Past Psychological History: No Psychological Hx Reported Smoking Status: Never smoker Past Alcohol Use History: None Reported Past Drug Use History: None Reported - Past Family History Mother Family Medical History: Coronary Artery Disease (CAD) Brother(s) Family Medical History: Cancer Medications and Allergies Home Medications Medication Instructions Recorded Confirmed Type Atenolol [Tenormin] 50 mg PO DAILY #60 tab 09/11/14 03/15/19 Rx predniSONE 5 mg PO DAILY #60 tab 09/11/14 03/15/19 Rx Zolpidem [Ambien] 10 mg PO HS PRN #3 tab 07/07/18 03/15/19 Rx traMADol HCL [Ultram] 50 mg PO Q6HR PRN #12 tablet 07/07/18 03/15/19 Rx Buprenorphine [Buprenorphine 5 5 mcg TRANSDERM FR 09/09/18 03/15/19 History MCG/HR] Allopurinol [Zyloprim] 100 mg PO DAILY 03/15/19 03/15/19 History Cholecalciferol [Vitamin D3 (25 1,000 unit PO DAILY 03/15/19 03/15/19 History Mcg = 1000 Iu)] Folic Acid 0.8 mg PO DAILY 03/15/19 03/15/19 History amLODIPine [Norvasc] 2.5 mg PO DAILY 03/15/19 03/15/19 History Allergies Allergy/AdvReac Type Severity Reaction Status Date / Time codeine Allergy Rash/Hives Verified 03/15/19 13:32 nitrofurantoin Allergy Rash/Hives Verified 03/15/19 13:32 macrocrystalline [From Macrodantin] Penicillins Allergy Anaphylaxis Verified 03/15/19 13:32 doxycycline AdvReac Nausea & Verified 03/15/19 13:32 Vomiting Sulfa (Sulfonamide AdvReac Nausea & Verified 03/15/19 13:32 Antibiotics) Vomiting Physical Exam Vitals: Vital Signs Temp Pulse Pulse Resp BP BP Pulse Ox 03/16/19 07:00 98.2 F 90 16 119/66 96 03/16/19 01:40 98.2 F 80 118/45 93 L 03/15/19 18:40 97.8 F 65 95/57 99 03/15/19 15:00 98.1 F 66 17 145/66 100 03/15/19 13:49 98.1 F 77 18 113/55 96 03/15/19 13:00 72 18 144/60 95 03/15/19 11:00 98.6 F 88 18 113/58 Intake and Output 03/15/19 03/16/19 03/16/19 22:59 06:59 14:59 Intake Total 580 1180 Balance 580 1180 Intake: Intake, IV Titration 100 700 Amount Sodium Chloride 0.9% 1, 100 700 000 ml @ 100 mls/hr IV . Q10H ONE Rx#:[id number] Oral 480 480 Other: Voiding Method Toilet # Voids 1 1 1 General appearance: cooperative, no acute distress - EENT Eyes: EOMI, PERRLA, normal appearance - Neck Neck: no lymphadenopathy, normal ROM, no thyromegaly - Respiratory Respiratory: bilateral: diminished, negative: dullness, rales, rhonchi, wheezing - Cardiovascular Rhythm: regular Heart sounds: normal: S1, S2, systolic murmur - Gastrointestinal General gastrointestinal: no distended, no hepatomegaly, normal bowel sounds, no organomegaly, soft, no splenomegaly, no tenderness Right flank tenderness - Neurologic Neurologic: CNII-XII intact - Musculoskeletal Musculoskeletal: generalized weakness, strength equal bilaterally - Psychiatric Psychiatric: A&O x's 3, appropriate affect, intact judgment & insight Results CBC & Chem 7: 03/15/19 11:35 03/16/19 10:47 Labs: Abnormal Lab Results - Last 24 Hours (Table) 03/15/19 03/15/19 03/15/19 Range/Units 11:35 11:35 11:35 WBC 16.9 H (3.8-10.6) k/uL Plt Count 85 L (150-450) k/uL Neutrophils # 13.9 H (1.3-7.7) k/uL Monocytes # 1.3 H (0-1.0) k/uL Basophils # 1.9 H (0-0.2) k/uL Sodium 136 L (137-145) mmol/L Carbon Dioxide 20 L (22-30) mmol/L BUN 49 H (7-17) mg/dL Creatinine 2.56 H (0.52-1.04) mg/dL Glucose 100 H (74-99) mg/dL Urine Appearance Turbid H (Clear) Urine Protein 1+ H (Negative) Urine Blood Small H (Negative) Ur Leukocyte Esterase Large H (Negative) Urine RBC 6 H (0-5) /hpf Urine WBC >182 H (0-5) /hpf Urine WBC Clumps Many H (None) /hpf Urine Bacteria Moderate H (None) /hpf Microbiology - Last 24 Hours (Table) 03/15/19 11:35 Urine Culture - Preliminary Urine,Voided Thrombosis Risk Factor Assmnt - DVT/VTE Prophylaxis DVT/VTE Prophylaxis: Pharmacologic Prophylaxis ordered - Choose All That Apply Other Risk Factors: Yes Each Risk Factor Represents 2 Points: Malignancy Each Risk Factor Represents 3 Points: Age 75 years or older Thrombosis Risk Factor Assessment Total Risk Factor Score: 5 Thrombosis Risk Factor Assessment Level: High Risk Assessment and Plan Plan: 1. Sepsis secondary to right-sided pyelonephritis. Continue with Rocephin 2 g IV piggyback daily and IV fluids. Urine culture is in progress. Blood culture will be ordered. 2. Acute renal failure on chronic kidney disease stage III with a history of left-sided nephrectomy for atrophic kidney. Baseline creatinine 1.5, continue with IV fluids. Nephrology consult added. 3. Metabolic acidosis secondary to renal failure. 4. Solid renal mass suspicious for renal cell carcinoma. Consult with urology. Renal ultrasound ordered. 5. Hypertension. Continue atenolol 50 mg daily. 6. Insomnia. Continue with Ambien 10 mg at bedtime. 7. Rheumatoid arthritis. Continue prednisone 5 mg daily along with baclofen 5 mg twice a day and tramadol 50 mg every 6 hours as needed for pain. 8. DVT prophylaxis. Subcu heparin. 9. GI prophylaxis. Protonix Patient will be admitted to the hospital for a minimum of 2 night stay. Discharge plan: To be determined. PT and OT evaluations. The above impression and plan of care have been discussed and directed by signing physician. Dorota Chin nurse practitioner acting as scribe for signing physician.
[2019-03-16] MEDS: SODIUM CHLORIDE 0.9% 1,000 ML IV SCH ×2 (18:12→22:36)
[2019-03-16] MEDS: HEPARIN SODIUM,PORCINE 5,000 UNIT/ML 1 ML VIAL SQ SCH (20:06)
--- NOTE | 2019-03-16 20:51 | P.GSCN ---
History of Present Illness Consult date: 03/16/19 Reason for Consult: Right renal mass/RIVERA History of present illness: Mrs. Howard is an 83-year-old female admitted for RIVERA. She presented with chief complaint of right flank painthat is associated with nausea, she indicated since admission her pain has improved. She has hx solitary kidney, secondary to left nephrectomy for non functioning kidney. Denies any N/V, denies any dysuria. She underwent a CT on 03/09 which showed mild hydro, U/S on admission showed resolution hydronephrosis. She has know hx of right renal mass that measures 3.2 cm, based on last CT on 03/09 the tumor is stable in size. She denies any gross hematuria. Review of Systems - Constitutional Denies chills, Denies fever - EENT Ears, nose, mouth and throat: Denies dysphagia - Cardiovascular Denies chest pain, Denies leg edema - Respiratory Denies cough, Denies dyspnea - Gastrointestinal Reports nausea, Denies vomiting - Genitourinary Genitourinary: Reports flank pain, Denies hematuria Past Medical History Past Medical History: Coronary Artery Disease (CAD), Deep Vein Thrombosis (DVT), Hypertension, Pneumonia, Renal Disease, Rheumatoid Arthritis (RA) Additional Past Medical History / Comment(s): vertebral fracture T-12, L1-3 History of Any Multi-Drug Resistant Organisms: None Reported, Other MDRO Past Surgical History: Hysterectomy, Joint Replacement, Orthopedic Surgery Additional Past Surgical History / Comment(s): left knee replacement, LEFT kidney removed, RIGHT HIP REPAIRED 06/2014 Past Anesthesia/Blood Transfusion Reactions: No Reported Reaction, Blood Transfu christa Reaction Additional Past Anesthesia/Blood Transfusion Reaction / Comm: pt stated that she was given blood before and she went into "pulmonary edema.". blood transfusion reaction before 1979 Past Psychological History: No Psychological Hx Reported Smoking Status: Never smoker Past Alcohol Use History: None Reported Past Drug Use History: None Reported - Past Family History Mother Family Medical History: Coronary Artery Disease (CAD) Brother(s) Family Medical History: Cancer Medications and Allergies Home Medications Medication Instructions Recorded Confirmed Type Atenolol [Tenormin] 50 mg PO DAILY #60 tab 09/11/14 03/15/19 Rx predniSONE 5 mg PO DAILY #60 tab 09/11/14 03/15/19 Rx Zolpidem [Ambien] 10 mg PO HS PRN #3 tab 07/07/18 03/15/19 Rx traMADol HCL [Ultram] 50 mg PO Q6HR PRN #12 tablet 07/07/18 03/15/19 Rx Buprenorphine [Buprenorphine 5 5 mcg TRANSDERM FR 09/09/18 03/15/19 History MCG/HR] Allopurinol [Zyloprim] 100 mg PO DAILY 03/15/19 03/15/19 History Cholecalciferol [Vitamin D3 (25 1,000 unit PO DAILY 03/15/19 03/15/19 History Mcg = 1000 Iu)] Folic Acid 0.8 mg PO DAILY 03/15/19 03/15/19 History amLODIPine [Norvasc] 2.5 mg PO DAILY 03/15/19 03/15/19 History Allergies Allergy/AdvReac Type Severity Reaction Status Date / Time codeine Allergy Rash/Hives Verified 03/15/19 13:32 nitrofurantoin Allergy Rash/Hives Verified 03/15/19 13:32 macrocrystalline [From Macrodantin] Penicillins Allergy Anaphylaxis Verified 03/15/19 13:32 doxycycline AdvReac Nausea & Verified 03/15/19 13:32 Vomiting Sulfa (Sulfonamide AdvReac Nausea & Verified 03/15/19 13:32 Antibiotics) Vomiting Surgical - Exam Vital Signs Temp Pulse Resp BP 98.6 F 88 18 113/58 03/15/19 11:00 03/15/19 11:00 03/15/19 11:00 03/15/19 11:00 - General well developed, well nourished, no distress - ENT normal mucosa, no hearing loss - Respiratory normal expansion, normal respiratory effort - Abdomen Abdomen: soft, tender (Right CVA) - Psychiatric oriented to time, oriented to person, oriented to place, speech is normal Results - Labs 03/15/19 11:35 03/16/19 10:47 Abnormal Lab Results - Last 24 Hours (Table) 03/16/19 Range/Units 10:47 Carbon Dioxide 18 L (22-30) mmol/L BUN 48 H (7-17) mg/dL Creatinine 2.54 H (0.52-1.04) mg/dL Calcium 8.3 L (8.4-10.2) mg/dL Microbiology - Last 24 Hours (Table) 03/15/19 11:35 Urine Culture - Preliminary Urine,Voided Gram Neg Bacilli Diabetes panel 03/16/19 Range/Units 10:47 Sodium 137 (137-145) mmol/L Potassium 4.5 (3.5-5.1) mmol/L Chloride 106 (98-107) mmol/L Carbon Dioxide 18 L (22-30) mmol/L BUN 48 H (7-17) mg/dL Creatinine 2.54 H (0.52-1.04) mg/dL Glucose 81 (74-99) mg/dL Calcium 8.3 L (8.4-10.2) mg/dL Calcium panel 03/16/19 Range/Units 10:47 Calcium 8.3 L (8.4-10.2) mg/dL Pituitary panel 03/16/19 Range/Units 10:47 Sodium 137 (137-145) mmol/L Potassium 4.5 (3.5-5.1) mmol/L Chloride 106 (98-107) mmol/L Carbon Dioxide 18 L (22-30) mmol/L BUN 48 H (7-17) mg/dL Creatinine 2.54 H (0.52-1.04) mg/dL Glucose 81 (74-99) mg/dL Calcium 8.3 L (8.4-10.2) mg/dL Adrenal panel 03/16/19 Range/Units 10:47 Sodium 137 (137-145) mmol/L Potassium 4.5 (3.5-5.1) mmol/L Chloride 106 (98-107) mmol/L Carbon Dioxide 18 L (22-30) mmol/L BUN 48 H (7-17) mg/dL Creatinine 2.54 H (0.52-1.04) mg/dL Glucose 81 (74-99) mg/dL Calcium 8.3 L (8.4-10.2) mg/dL Assessment and Plan Assessment: 83 yo Female admitted with RIVERA and Peylonephritis. She underwent CT on 03/09 which showed mild hydro, U/S on admission showed resolution of hydronephrosis. She has Known hx of right renal mass, based on CT on 03/09 the mass is stable in size 1. Hydronephrosis -Resolved on RBUS, no further workup is needed 2. Renal Mass -Renal mass is stable in size no intervention is needed at this time. She is on Active [employer] for renal mass, she is know patient of Dr Johnson, She can f/u as an outpatient with Dr Johnson for management of her renal mass
[2019-03-16] MEDS: ZOLPIDEM 10 MG TAB PO PRN (22:35)
[2019-03-17] MEDS: ALLOPURINOL 100 MG TAB PO SCH (07:01)
[2019-03-17] MEDS: CHOLECALCIFEROL 1,000 UNIT TAB PO SCH (07:01)
[2019-03-17] MEDS: PANTOPRAZOLE 40 MG TABLET PO SCH (07:01)
[2019-03-17] MEDS: FOLIC ACID 1 MG TAB PO SCH (07:01)
[2019-03-17] MEDS: ATENOLOL 50 MG TAB PO SCH (07:01)
[2019-03-17] MEDS: SODIUM BICARBONATE TAB 650 MG TAB PO SCH ×2 (07:01→20:00)
[2019-03-17] MEDS: predniSONE 5 MG TAB PO SCH (07:02)
[2019-03-17] MEDS: HEPARIN SODIUM,PORCINE 5,000 UNIT/ML 1 ML VIAL SQ SCH ×2 (07:06→20:01)
[2019-03-17 08:19] LABS: HCT 36.9 % (34.0-46.0); Hypochromasia Marked; MCH 32.9 pg (25.0-35.0); MCHC 32.5 g/dL (31.0-37.0); MCV 101.2 fL (80.0-100.0); Macrocytosis Slight; Mean Platelet Volume 7.5; RBC 3.64 m/uL (3.80-5.40); RDW 13.3 % (11.5-15.5); WBC 8.8 k/uL (3.8-10.6)
[2019-03-17 08:20] LABS: Platelet Count 64 k/uL (150-450)
[2019-03-17 08:31] LABS: Calcium 7.9 mg/dL (8.4-10.2); Potassium 4.6 mmol/L (3.5-5.1)
--- NOTE | 2019-03-17 09:51 | P.PN ---
Subjective Progress Note Date: 03/17/19 Principal diagnosis: This is an 83-year-old female with a solitary kidney status post remote nephrectomy for unclear cause. She came in because of right-sided flank pain and has gram-negative bacteremia. She has had recurrent infection with E. coli. So far in this hospital she had E. coli on 02/02/2019, 07/03/2018, 02/03/2018 as well as 08/31/2014 4 years ago Currently she is feeling much better the pain is almost resolved. She didn't have any fever chills. She is walking and able to eat. No nausea vomiting diarrhea. She is concerned about her recurrent infections. She is on actemra for her rheumatoid arthritis. She is known with coronary artery disease DVT rheumatoid arthritis Objective - Vital Signs Vital signs: Vital Signs Temp 97.5 F L 03/17/19 06:55 Pulse 66 03/17/19 06:55 Resp 17 03/17/19 06:55 BP 146/72 03/17/19 06:55 Pulse Ox 97 03/17/19 06:55 Intake & Output 03/16/19 03/17/19 03/17/19 18:59 06:59 18:59 Intake Total 200 1735 Balance 200 1735 Intake: Intake, IV Titration 675 Amount Sodium Chloride 0.9% 1, 675 000 ml @ 75 mls/hr IV . [id number] ANTON Rx#:[id number] Oral 200 1060 Other: Voiding Method Toilet # Voids 1 2 On examination she is awake alert oriented comfortable HEENT exam no JVP neck is supple no facial asymmetry Lungs clear to auscultation good air entry bilaterally Heart sounds are unremarkable for any murmur rub gallop Abdomen soft nontender no masses felt Extremity exam no edema Neurologically awake alert oriented - Labs CBC & Chem 7: 03/17/19 06:52 03/17/19 06:52 Labs: Abnormal Lab Results - Last 24 Hours (Table) 03/16/19 03/17/19 03/17/19 Range/Units 10:47 06:52 06:52 RBC 3.64 L (3.80-5.40) m/uL MCV 101.2 H (80.0-100.0) fL Plt Count 64 L (150-450) k/uL Chloride 116 H (98-107) mmol/L Carbon Dioxide 18 L 19 L (22-30) mmol/L BUN 48 H 46 H (7-17) mg/dL Creatinine 2.54 H 1.97 H (0.52-1.04) mg/dL Calcium 8.3 L 7.9 L (8.4-10.2) mg/dL Microbiology - Last 24 Hours (Table) 03/15/19 11:35 Urine Culture - Preliminary Urine,Voided Gram Neg Bacilli Assessment and Plan Assessment: Impression 1. Acute kidney injury secondary to pyelonephritis and a solitary right kidney. Creatinine peaked at 2.56 on 03/15/2000 1990s down to 1.97 his morning 03/17/2019 2. Recurrent E. coli infections. 3. Non-gap acidosis bicarb is 19 and gap is 8 secondary to acute kidney injury and chronic kidney disease 4. Chronic kidney disease stage IIIB, secondary to solitary kidney and nephrosclerosis Baseline creatinine is 1.5, GFR 32 mL per minute as of 01/11/2019 5. Slowly growing mass right solitary kidney under observation. 6. Rheumatoid arthritis on biological's Actemra fusion 7. Chronic thrombocytopenia Recommendation 1. Continue IV antibiotics for 24-48 hours. 2. Once sensitivity is known she could be discharged on oral antibiotics. Suggest a prolonged course of about 4 weeks given the recurrence of same bacteria E. coli. 3. Or also consider long-term prophylactic small doses of antibiotics because of the immunosuppressive state she is in 4. Start oral bicarbonate 650 3 times a day
[2019-03-17] MEDS: traMADol 50 MG TAB PO PRN ×2 (12:15→20:00)
[2019-03-17] MEDS: SODIUM CHLORIDE 0.9% 1,000 ML IV SCH ×2 (12:15→21:45)
--- NOTE | 2019-03-17 12:32 | P.PN ---
Subjective Progress Note Date: 03/17/19 This is an 83-year-old female patient of Dr. Lyles and Dr. Johnson with a past medical history of rheumatoid arthritis, chronic kidney disease stage III with history of left-sided nephrectomy secondary to atrophic kidney, hypertension and advanced osteoarthritis. Patient has a known mass in her right kidney. She had a CAT scan on March 09 revealed stable right renal posterior upper pole in enhancing solid mass strongly suspicious for renal cell carcinoma especially given patient's history of left-sided renal cancer. Lesion measures 3.1 x 2.1 cm not significantly changed from June 2017. There is a new mild right-sided hydronephrosis and proximal hydroureter without mid ureter dilatat ion. No obstructing or right renal calculi identified. Patient complains of his increasing pain to the right flank area since Thursday she denies any abdominal pain. She has had nausea without vomiting, no diarrhea. She complains of chills. She states the pain is mostly on the right side but when she has strong spasms that goes across the entire lower back. Patient was seen in the office by Dr. Arauz on and there was concern for renal cell carcinoma based on the CAT scan report. Patient was to have a repeat visit to decide on next steps. Patient came into [facility] emergency center for evaluation. She was afebrile, vital signs stable. She presented with leukocytosis 16.9, BUN was 49 and creatinine 2.56, CO2 20. Baseline creatinine is 1.5. Liver function tests within normal limits, urinalysis turbid, leukoesterase large, WBCs greater than 182, WBC clumps many, bacteria moderate. Patient was started on ceftriaxone and admitted to the MedSur floor. Urine culture is in progress. Blood culture will be added. Consults admitted for nephrology and urology. 03/17: SHe is resting complained bed without any complaints. Patient would like to know when she was going home. Patient denies any abdominal or flank pain. Patient states that her appetite has improved. And she is feeling better. He can use IV antibiotics for 1 day as we wait for C/S from urine culture were possible continuation of antibiotics for 4 weeks. Discussed possible antibiotic prophylaxis. W BC 8.8, hemoglobin 12.0, potassium 4.6, creatinine 1.97, BUN 46. Review of Systems Constitutional: Reports fatigue, Reports poor appetite, Reports weakness, Denies chills, Denies fever Eyes: denies blurred vision, denies pain Ears, nose, mouth and throat: Denies dysphagia, Denies headache, Denies nasal congestion, Denies nasal discharge, Denies sore throat, Denies vertigo Cardiovascular: Denies chest pain, Denies dyspnea on exertion, Denies edema, Denies leg edema, Denies lightheadedness, Denies shortness of breath, Denies syncope Respiratory: Denies cough, Denies cough with sputum, Denies dyspnea, Denies excessive sputum, Denies hemoptysis, Denies home oxygen, Denies respiratory infections, Denies wheezing Gastrointestinal: Denies abdominal pain, DeniesReports loss of appetite, Denies diarrhea, Denies nausea, Denies vomiting Genitourinary: Denies flank pain, Denies dysuria, Denies hematuria Musculoskeletal: denies muscle weakness, Denies myalgias Integumentary: Denies pruritus, Denies rash, Denies wounds Neurological: Denies change in mentation, Denies change in speech, Denies numbness, Denies seizures, Denies weakness Psychiatric: Denies anxiety, Denies depression Endocrine: Denies fatigue, Denies weight change Objective - Vital Signs Vital signs: Vital Signs Temp 97.5 F L 03/17/19 06:55 Pulse 66 03/17/19 06:55 Resp 17 03/17/19 06:55 BP 146/72 03/17/19 06:55 Pulse Ox 97 03/17/19 06:55 Intake & Output 03/16/19 03/17/19 03/17/19 18:59 06:59 18:59 Intake Total 200 1735 Balance 200 1735 Intake: Intake, IV Titration 675 Amount Sodium Chloride 0.9% 1, 675 000 ml @ 75 mls/hr IV . [id number] [facility] Rx#:[id number] Oral 200 1060 Other: Voiding Method Toilet # Voids 1 2 - Exam General Appearance: Alert, cooperative, no distress, appears stated age. Neck HEENT: Supple, no lymphadenopathy, no thyroid enlargement, no carotid bruits. Lungs: Clear to auscultation without crackles or wheezes no rhonchi, no deformity. Chest Wall: Chest wall normal expansion with deep inspiration no tenderness and no deformity was found on exam, no costochondral pain or discomfort. Heart: Regular rate and rhythm, S1, S2 normal, no murmur, rub or gallop. Back: Symmetric, no curvature, ROM normal, no CVA tenderness. Abdomen: Soft, non-tender, no rebound or rigidity, no hepatosplenomegaly. Extremities: Extremities normal, atraumatic, no cyanosis or edema. Pulses: 2+ and symmetric. Skin: Skin color, texture, tugor normal, no rashes or lesions. Neurologic: Alert oriented x3 cranial nerves II through XII intact, no motor deficit, no abnormal balance or gait - Labs CBC & Chem 7: 03/17/19 06:52 03/17/19 06:52 Labs: Abnormal Lab Results - Last 24 Hours (Table) 03/17/19 03/17/19 Range/Units 06:52 06:52 RBC 3.64 L (3.80-5.40) m/uL MCV 101.2 H (80.0-100.0) fL Plt Count 64 L (150-450) k/uL Chloride 116 H (98-107) mmol/L Carbon Dioxide 19 L (22-30) mmol/L BUN 46 H (7-17) mg/dL Creatinine 1.97 H (0.52-1.04) mg/dL Calcium 7.9 L (8.4-10.2) mg/dL Microbiology - Last 24 Hours (Table) 03/15/19 11:35 Urine Culture - Preliminary Urine,Voided Gram Neg Bacilli Assessment and Plan Plan: 1. Sepsis secondary to right-sided pyelonephritis. Continue with Rocephin 2 g IV piggyback daily and IV fluids. Urine culture is in progress. Blood culture will be ordered. 2. Acute renal failure on chronic kidney disease stage III with a history of left-sided nephrectomy for atrophic kidney. Baseline creatinine 1.5, continue with IV fluids. Nephrology consult appreciated 3. Metabolic acidosis secondary to renal failure. 4. Solid renal mass suspicious for renal cell carcinoma. Consult with urology. Renal ultrasound impression: No hydronephrosis currently, persistent suspicious mass or neoplasm upper pole right kidney. 5. Hypertension. Continue atenolol 50 mg daily. 6. Insomnia. Continue with Ambien 10 mg at bedtime. 7. Rheumatoid arthritis. Continue prednisone 5 mg daily along with baclofen 5 mg twice a day and tramadol 50 mg every 6 hours as needed for pain. 8. DVT prophylaxis. Subcu heparin. 9. GI prophylaxis. Protonix Patient will be admitted to the hospital for a minimum of 2 night stay. Discharge plan: Possible home tomorrow PT and OT evaluations. The above impression and plan of care have been discussed and directed by signing physician. Adela Grant nurse practitioner acting as scribe for signing physician.
--- NOTE | 2019-03-17 16:18 | P.PN ---
Subjective Progress Note Date: 03/17/19 no acute overnight events, her right flank pain is improving compared to yesterday. She indicates that she is tolerating a diet and denies any nausea/vomiting Objective - Vital Signs Vital signs: Vital Signs Temp 98.1 F 03/17/19 15:00 Pulse 75 03/17/19 15:00 Resp 18 03/17/19 15:00 BP 153/77 03/17/19 15:00 Pulse Ox 94 L 03/17/19 15:00 Intake & Output 03/16/19 03/17/19 03/17/19 18:59 06:59 18:59 Intake Total 200 1735 Balance 200 1735 Intake: Intake, IV Titration 675 Amount Sodium Chloride 0.9% 1, 675 000 ml @ 75 mls/hr IV . [id number] [facility] Rx#:[id number] Oral 200 1060 Other: Voiding Method Toilet # Voids 1 2 - Constitutional General appearance: Present: no acute distress - Gastrointestinal General gastrointestinal: Present: soft. Absent: tenderness - Psychiatric Psychiatric: Present: A&O x's 3 - Labs CBC & Chem 7: 03/17/19 06:52 03/17/19 06:52 Labs: Abnormal Lab Results - Last 24 Hours (Table) 03/17/19 03/17/19 Range/Units 06:52 06:52 RBC 3.64 L (3.80-5.40) m/uL MCV 101.2 H (80.0-100.0) fL Plt Count 64 L (150-450) k/uL Chloride 116 H (98-107) mmol/L Carbon Dioxide 19 L (22-30) mmol/L BUN 46 H (7-17) mg/dL Creatinine 1.97 H (0.52-1.04) mg/dL Calcium 7.9 L (8.4-10.2) mg/dL Microbiology - Last 24 Hours (Table) 03/16/19 10:47 Blood Culture - Preliminary Blood No Growth after 24 hours 03/15/19 11:35 Urine Culture - Preliminary Urine,Voided Gram Neg Bacilli Assessment and Plan Assessment: 83 yo Female admitted with RIVERA and Peylonephritis. She underwent CT on 03/09 which showed mild hydro, U/S on admission showed resolution of hydronephrosis. She has Known hx of right renal mass, based on CT on 03/09 the mass is stable in size 1. Hydronephrosis -Resolved on RBUS, no further workup is needed -CVA tenderness improving 2. Renal Mass -Renal mass is stable in size no intervention is needed at this time. She is on Active Survelliance for renal mass, she is know patient of Dr Johnson, She can f/u as an outpatient with Dr Johnson for management of her renal mass 3. UTI -Continue abx -F/U on urine culture
[2019-03-17] MEDS: ZOLPIDEM 10 MG TAB PO PRN (21:45)
[2019-03-18 07:34] LABS: HCT 35.3 % (34.0-46.0); HGB 11.1 gm/dL (11.4-16.0); Hypochromasia Slight; MCH 31.4 pg (25.0-35.0); MCHC 31.4 g/dL (31.0-37.0); MCV 100.1 fL (80.0-100.0); Mean Platelet Volume 7.6; RBC 3.53 m/uL (3.80-5.40); RDW 13.5 % (11.5-15.5); WBC 7.9 k/uL (3.8-10.6)
[2019-03-18 07:36] LABS: Platelet Count 61 k/uL (150-450)
[2019-03-18] MEDS: predniSONE 5 MG TAB PO SCH (07:36)
[2019-03-18] MEDS: ALLOPURINOL 100 MG TAB PO SCH (07:36)
[2019-03-18] MEDS: FOLIC ACID 1 MG TAB PO SCH (07:36)
[2019-03-18] MEDS: PANTOPRAZOLE 40 MG TABLET PO SCH (07:36)
[2019-03-18] MEDS: CHOLECALCIFEROL 1,000 UNIT TAB PO SCH (07:36)
[2019-03-18] MEDS: ATENOLOL 50 MG TAB PO SCH (07:36)
[2019-03-18] MEDS: SODIUM BICARBONATE TAB 650 MG TAB PO SCH (07:37)
[2019-03-18] MEDS: HEPARIN SODIUM,PORCINE 5,000 UNIT/ML 1 ML VIAL SQ SCH (07:37)
[2019-03-18 07:41] LABS: Calcium 7.6 mg/dL (8.4-10.2); Potassium 3.9 mmol/L (3.5-5.1)
--- NOTE | 2019-03-18 07:56 | P.PN ---
Subjective Progress Note Date: 03/18/19 Principal diagnosis: This is an 83-year-old female with a solitary kidney status post remote nephrectomy for unclear cause. She came in because of right-sided flank pain and has gram-negative bacteremia. She has had recurrent infection with E. coli. So far in this hospital she had E. coli on 02/02/2019, 07/03/2018, 02/03/2018 as well as 08/31/2014 4 years ago Currently she is feeling much better the pain is almost resolved. She didn't have any fever chills. She is walking and able to eat. No nausea vomiting diarrhea. She is concerned about her recurrent infections. She is on actemra for her rheumatoid arthritis. She is known with coronary artery disease DVT rheumatoid arthritis Her E. coli is sensitive to oral medications including Bactrim, doxycycline, Macrodantin. She is ALLERGIC to Macrodantin. Doxycycline causes her nausea vomiting. E. coli is nonsensitive any other oral medications Objective - Vital Signs Vital signs: Vital Signs Temp 97.4 F L 03/18/19 01:00 Pulse 72 03/18/19 01:00 Resp 18 03/18/19 03:05 BP 166/71 03/18/19 01:00 Pulse Ox 99 03/18/19 01:00 Intake & Output 03/17/19 03/18/19 03/18/19 18:59 06:59 18:59 Intake Total 900 Balance 900 Intake: Intake, IV Titration 900 Amount Sodium Chloride 0.9% 1, 900 000 ml @ 75 mls/hr IV . [id number] [facility] Rx#:[id number] Other: Voiding Method Toilet # Voids 1 Examination she is awake alert oriented comfortable HEENT exam no JVP neck supple no facial asymmetry Lungs clear to auscultation good air entry bilaterally Heart sounds are unremarkable no murmur rub gallop Abdomen soft nontender this minimal right renal angle tenderness Extremities there was no edema Awake alert oriented comfortable - Labs CBC & Chem 7: 03/17/19 06:52 03/17/19 06:52 Labs: Abnormal Lab Results - Last 24 Hours (Table) 03/17/19 03/17/19 Range/Units 06:52 06:52 RBC 3.64 L (3.80-5.40) m/uL MCV 101.2 H (80.0-100.0) fL Plt Count 64 L (150-450) k/uL Chloride 116 H (98-107) mmol/L Carbon Dioxide 19 L (22-30) mmol/L BUN 46 H (7-17) mg/dL Creatinine 1.97 H (0.52-1.04) mg/dL Calcium 7.9 L (8.4-10.2) mg/dL Microbiology - Last 24 Hours (Table) 03/15/19 11:35 Urine Culture - Final Urine,Voided Escherichia coli 03/16/19 10:47 Blood Culture - Preliminary Blood No Growth after 24 hours Assessment and Plan Assessment: Impression 1. Acute kidney injury secondary to pyelonephritis and a solitary right kidney. Creatinine peaked at 2.56 on 03/15/2019, and is down to 1.49 this morning 2. Recurrent E. coli infections. Sensitivities to multiple IV antibiotics but oral antibiotics are restricted to doxycycline Macrodantin and Bactrim. She is ALLERGIC to Macrodantin. She claims that she had nausea vomiting after 3-4 days use of doxycycline. 3. Non-gap acidosis bicarb is 19 and gap is 8 secondary to acute kidney injury and chronic kidney disease 4. Chronic kidney disease stage IIIB, secondary to solitary kidney and nephro sclerosis Baseline creatinine is 1.5, GFR 32 mL per minute as of 01/11/2019 5. Slowly growing mass right solitary kidney under observation. 6. Rheumatoid arthritis on biological's Actemra fusion 7. Chronic thrombocytopenia Recommendation 1. Patient may be discharged as she has had IV ceftriaxone 2 g daily for the last 4 days including today. 2. We'll start her on doxycycline 100 mg daily for 4 weeks. 3. also consider long-term prophylactic small doses of antibiotics because of the immunosuppressive state she is in 4. Continue oral bicarbonate 650 3 times a day. 5. Follow-up in the office regarding continuation of antibiotics
[2019-03-18 08:03] VITALS: BP 171/72; PULSE 70; RESP 16; TEMP 98.1
--- NOTE | 2019-03-18 11:51 | P.DS ---
Providers Date of admission: 03/15/19 13:14 Expected date of discharge: 03/18/19 Attending physician: Charo Garcia MD Consults: 03/16/19 10:32 Consult Physician Routine Consulting Provider: Thad Johnson Consult Reason/Comments: renal cell cancer, mild hydro Do you want consulting provider notified?: Yes 03/16/19 10:40 Consult Physician Routine Consulting Provider: Travis Horne Consult Reason/Comments: RIVERA Do you want consulting provider notified?: Yes Primary care physician: [facility] Course: This is an 83-year-old female patient of Dr. Lyles and Dr. Johnson with a past medical history of rheumatoid arthritis, chronic kidney disease stage III with history of left-sided nephrectomy secondary to atrophic kidney, hypertension and advanced osteoarthritis. Patient has a known mass in her right kidney. She had a CAT scan on March 09 revealed stable right renal posterior upper pole in enhancing solid mass strongly suspicious for renal cell carcinoma especially given patient's history of left-sided renal cancer. Lesion measures 3.1 x 2.1 cm not significantly changed from June 2017. There is a new mild right-sided hydronephrosis and proximal hydroureter without mid ureter dilatation. No obstructing or right renal calculi identified. Patient complains of his increasing pain to the right flank area since Thursday she denies any abdominal pain. She has had nausea without vomiting, no diarrhea. She complains of chills. She states the pain is mostly on the right side but when she has strong spasms that goes across the entire lower back. Patient was seen in the office by Dr. Arauz on and there was concern for renal cell carcinoma based on the CAT scan report. Patient was to have a repeat visit to decide on next steps. Patient came into [facility] emergency center for evaluation. She was afebrile, vital signs stable. She presented with leukocytosis 16.9, BUN was 49 and creatinine 2.56, CO2 20. Baseline creatinine is 1.5. Liver function tests within normal limits, urinalysis turbid, leukoesterase large, WBCs greater than 182, WBC clumps many, bacteria moderate. Patient was started on ceftriaxone and admitted to the MedSur floor. Urine culture is in progress. Blood culture will be added. Consults admitted for nephrology and urology. 03/17: SHe is resting complained bed without any complaints. Patient would like to know when she was going home. Patient denies any abdominal or flank pain. Patient states that her appetite has improved. And she is feeling better. He can use IV antibiotics for 1 day as we wait for C/S from urine culture were possible continuation of antibiotics for 4 weeks. Discussed possible antibiotic prophylaxis. WBC 8.8, hemoglobin 12.0, potassium 4.6, creatinine 1.97, BUN 46. 03/18: Urine cultures positive for E. coli resistant to ampicillin, Unasyn and fluoroquinolones, cefuroxime. Patient has been maintained on ceftriaxone. Nephrology has recommended a total of a four-week course of antibiotics due to her single kidney and immunnosuppression. Blood cultures no growth at 24 hours. Repeat lab work revealed a white count of 7.9, hemoglobin 11.1, BUN 31 creatinine 1.49, CO2 is 20, chloride 117, potassium 3.9, sodium 144. Patient states she is still having some soreness in her right flank and spasms. Was recommended the patient take some of her baclofen at home as this is most likely rate related to muscle spasms versus pyelonephritis. Patient will be discharged home today in stable condition. Discharge diagnoses: 1. Sepsis secondary to right-sided pyelonephritis. 2. Acute renal failure on chronic kidney disease stage III with a history of left-sided nephrectomy for atrophic kidney. 3. Metabolic acidosis secondary to renal failure. 4. Solid renal mass suspicious for renal cell carcinoma. 5. Hypertension. 6. Insomnia. 7. Rheumatoid arthritis. Discharge plan: home The above impression and plan of care have been discussed and directed by signing physician. Dorota Chin nurse practitioner acting as scribe for signing physician. Patient Condition at Discharge: Good Plan - Discharge Summary New Discharge Prescriptions: New Sodium Bicarbonate Tab 650 mg PO BID #60 tab Cephalexin [Keflex] 250 mg PO Q8HR #75 capsule Continue predniSONE 5 mg PO DAILY #60 tab Atenolol [Tenormin] 50 mg PO DAILY #60 tab Zolpidem [Ambien] 10 mg PO HS PRN #3 tab PRN Reason: insomnia traMADol HCL [Ultram] 50 mg PO Q6HR PRN #12 tablet PRN Reason: Pain Buprenorphine [Buprenorphine 5 MCG/HR] 5 mcg TRANSDERM FR amLODIPine [Norvasc] 2.5 mg PO DAILY Allopurinol [Zyloprim] 100 mg PO DAILY Folic Acid 0.8 mg PO DAILY Cholecalciferol [Vitamin D3 (25 Mcg = 1000 Iu)] 1,000 unit PO DAILY Discharge Medication List Atenolol [Tenormin] 50 mg PO DAILY #60 tab 09/11/14 [Rx] predniSONE 5 mg PO DAILY #60 tab 09/11/14 [Rx] Zolpidem [Ambien] 10 mg PO HS PRN #3 tab 07/07/18 [Rx] traMADol HCL [Ultram] 50 mg PO Q6HR PRN #12 tablet 07/07/18 [Rx] Buprenorphine [Buprenorphine 5 MCG/HR] 5 mcg TRANSDERM FR 09/09/18 [History] Allopurinol [Zyloprim] 100 mg PO DAILY 03/15/19 [History] Cholecalciferol [Vitamin D3 (25 Mcg = 1000 Iu)] 1,000 unit PO DAILY 03/15/19 [History] Folic Acid 0.8 mg PO DAILY 03/15/19 [History] amLODIPine [Norvasc] 2.5 mg PO DAILY 03/15/19 [History] Cephalexin [Keflex] 250 mg PO Q8HR #75 capsule 03/18/19 [Rx] Sodium Bicarbonate Tab 650 mg PO BID #60 tab 03/18/19 [Rx] Follow up Appointment(s)/Referral(s): Cyndi Ambrose MD [STAFF PHYSICIAN] - 1 Week (Office closed at time of discharge please call ThursdayMarch 21 to set up a follow up appointment) Jude Lyles MD [Primary Care Provider] - 3 Days (Office closed at time of discharge please call ThursdayMarch 21 to set up a follow up appointment) Thad Johnson MD [STAFF PHYSICIAN] - 1 Week (Office closed at time of discharge please call ThursdayMarch 21 to set up a follow up appointment) Patient Instructions/Handouts: Kidney Infection (DC) Activity/Diet/Wound Care/Special Instructions: OK to take Baclofen at 5mg 2-3 times per day. Discharge Disposition: HOME SELF-CARE
== END 2019-03-18 11:46 | disposition home or self-care (01) | DRG 871 ==
LOC: EC 10:42 → 4SSUR 13:14
PROVIDERS: ADMIT Internal Medicine; ATTEND Internal Medicine
DX: A41.50 Gram-negative sepsis, unspecified (principal); N17.0 Acute kidney failure with tubular necrosis; C64.9 Malignant neoplasm of unspecified kidney, except renal pelvis; E87.2 Acidosis; I13.0 Hypertensive heart and chronic kidney disease with heart failure and stage 1 through stage 4 chronic kidney disease, or unspecified chronic kidney disease; I50.32 Chronic diastolic (congestive) heart failure; N13.6 Pyonephrosis; Z16.11 Resistance to penicillins; D69.6 Thrombocytopenia, unspecified; E27.9 Disorder of adrenal gland, unspecified; G47.00 Insomnia, unspecified; I08.1 Rheumatic disorders of both mitral and tricuspid valves; I25.10 Atherosclerotic heart disease of native coronary artery without angina pectoris; I27.20 Pulmonary hypertension, unspecified; M06.9 Rheumatoid arthritis, unspecified; N18.3 Chronic kidney disease, stage 3 (moderate); Z79.52 Long term (current) use of systemic steroids; Z79.899 Other long term (current) drug therapy; Z82.49 Family history of ischemic heart disease and other diseases of the circulatory system; Z85.528 Personal history of other malignant neoplasm of kidney; Z88.1 Allergy status to other antibiotic agents; Z90.5 Acquired absence of kidney; Z90.710 Acquired absence of both cervix and uterus; Z96.652 Presence of left artificial knee joint; Z88.5 Allergy status to narcotic agent; Z88.0 Allergy status to penicillin; Z88.2 Allergy status to sulfonamides; Z88.8 Allergy status to other drugs, medicaments and biological substances
CPT/HCPCS: 36415; 76770; 80048; 80053; 81001; 85025; 85027; 87040; 87077; 87086; 87186; 96361; 96374; 96375; 96376; 99285

== ENCOUNTER 2019-04-15 13:07 | Inpatient (IN) | payer MEDICARE, OTHER ==
[2019-04-15] MEDS ORDERED: ONDANSETRON 4 MG/2 ML VIAL IVP PRN (13:56)
[2019-04-15] MEDS ORDERED: ACETAMINOPHEN TAB 325 MG TAB PO PRN (13:56)
[2019-04-15] MEDS ORDERED: LEVOFLOXACIN 500MG-D5W PMX 500 MG in DEXTROSE/WATER 1 100ML.BAG IVPB SCH (14:00)
[2019-04-15] MEDS: SODIUM CHLORIDE 0.9% 1,000 ML IV SCH (14:26)
[2019-04-15 14:34] LABS: HGB 13.5 gm/dL (11.4-16.0); Hypochromasia Slight; MCH 30.8 pg (25.0-35.0); MCHC 32.1 g/dL (31.0-37.0); MCV 95.9 fL (80.0-100.0); Mean Platelet Volume 11.3; RBC 4.37 m/uL (3.80-5.40); RDW 14.3 % (11.5-15.5); WBC 12.9 k/uL (3.8-10.6)
[2019-04-15 14:41] LABS: Albumin 3.9 g/dL (3.5-5.0); Calcium 9.7 mg/dL (8.4-10.2); Potassium 4.5 mmol/L (3.5-5.1); Total Bilirubin 0.8 mg/dL (0.2-1.3); Total Protein 6.9 g/dL (6.3-8.2)
[2019-04-15 14:56] LABS: Platelet Count 39 k/uL (150-450)
[2019-04-15 15:17] LABS: Band Neutrophils % 4 %; Eosinophils # (M) 0.26 k/uL (0-0.7); Lymphocytes # (M) 4.52 k/uL (1.0-4.8); Monocytes # (M) 0.65 k/uL (0-1.0); Neutrophils % (M) 54 %; Nucleated Red Blood Cells 0 /100 WBC (0-0); Reactive Lymphocytes Present; Total Cells Counted 100
[2019-04-15] MEDS ORDERED: ZOLPIDEM 10 MG TAB PO PRN (15:48)
[2019-04-15] MEDS: SODIUM BICARBONATE TAB 650 MG TAB PO SCH (19:33)
[2019-04-15] MEDS ORDERED: AZTREONAM 2 GM in SODIUM CHLORIDE 0.9% 100 ML IVPB SCH (22:15)
[2019-04-15] MEDS: AZTREONAM 1 GM in SODIUM CHLORIDE 0.9% 100 ML IVPB SCH (23:19)
[2019-04-15] MEDS: ZOLPIDEM 5 MG TAB PO PRN (23:52)
[2019-04-16] LABS: Appearance,Urine Clear (Clear); Bacteria,Urine Rare /hpf; Bilirubin,Urine Negative (Negative); Blood,Urine Trace (Negative); Color,Urine Yellow; Glucose,Urine (UA) Negative (Negative); Ketones,Urine Negative (Negative); Leukocyte Esterase,Urine Negative (Negative); Nitrite,Urine Negative (Negative); PH, Urine 5.5 (5.0-8.0); Protein,Urine Trace (Negative); RBC,Urine 2 /hpf (0-5); Specific Gravity,Urine 1.013 (1.001-1.035); Squamous Epithelial Cell,Urine <1 /hpf (0-4); Urobilinogen,Urine <2.0 mg/dL (<2.0); WBC,Urine 5 /hpf (0-5)
[2019-04-16] MEDS: BACLOFEN 10 MG TAB PO PRN ×2 (00:58→08:03)
[2019-04-16 07:40] LABS: HCT 38.5 % (34.0-46.0); HGB 12.4 gm/dL (11.4-16.0); Hypochromasia Slight; MCH 30.8 pg (25.0-35.0); MCHC 32.2 g/dL (31.0-37.0); MCV 95.6 fL (80.0-100.0); Mean Platelet Volume 11.4; RBC 4.02 m/uL (3.80-5.40); RDW 14.4 % (11.5-15.5); WBC 9.9 k/uL (3.8-10.6)
[2019-04-16 08:02] LABS: Albumin 3.2 g/dL (3.5-5.0); Calcium 8.8 mg/dL (8.4-10.2); Potassium 4.2 mmol/L (3.5-5.1); Total Bilirubin 0.7 mg/dL (0.2-1.3); Total Protein 5.9 g/dL (6.3-8.2)
[2019-04-16] MEDS: ALLOPURINOL 100 MG TAB PO SCH (08:03)
[2019-04-16] MEDS: ATENOLOL 50 MG TAB PO SCH (08:03)
[2019-04-16] MEDS: CALCIUM CARBONATE 500 MG CHEWABLE PO PRN (08:03)
[2019-04-16] MEDS: CHOLECALCIFEROL 1,000 UNIT TAB PO SCH (08:03)
[2019-04-16] MEDS: SODIUM BICARBONATE TAB 650 MG TAB PO SCH ×2 (08:03→21:16)
[2019-04-16] MEDS: FOLIC ACID 1 MG TAB PO SCH (08:03)
[2019-04-16] MEDS: amLODIPine 2.5 MG TAB PO SCH (08:03)
[2019-04-16] MEDS: SODIUM CHLORIDE 0.9% 1,000 ML IV SCH (09:52)
[2019-04-16] MEDS: AZTREONAM 1 GM in SODIUM CHLORIDE 0.9% 100 ML IVPB SCH ×2 (09:52→22:09)
[2019-04-16 09:56] LABS: Band Neutrophils % 1 %; Lymphocytes # (M) 3.47 k/uL (1.0-4.8); Monocytes # (M) 1.98 k/uL (0-1.0); Neutrophils % (M) 43 %; Nucleated Red Blood Cells 0 /100 WBC (0-0); Total Cells Counted 100
[2019-04-16 09:57] LABS: Platelet Count 39 k/uL (150-450); Poikilocytosis (M) Present
--- NOTE | 2019-04-16 10:30 | CONS ---
CONSULTATION DATE OF SERVICE: 04/15/2019. REASON FOR CONSULTATION: Urinary tract infection. HISTORY OF PRESENT ILLNESS: The patient is an 83-year-old female with a past medical history significant for rheumatoid arthritis, chronic renal insufficiency. The patient did have left sided nephrectomy secondary to atrophic kidney and also history of right renal mass for which the patient has been evaluated recently on her last admission by Urology. The patient last admitted to this facility for UTI around with the urine culture done at that time that showed E coli. Subsequently, the patient was discharged home on oral Keflex. The patient is being admitted back to the hospital with chief complaint of pain in her right flank area. Patient described the pain to be more of a dull aching to sharp 7 to 8 out of 10 and no radiation. The patient complaining of some hematuria and urinary pressure with some frequency. No significant burning. Nausea, but no vomiting. With these symptoms, the patient has been admitted directly to the hospital. Initial workup including an elevated white count of 12.9 and creatinine 2.58. Urine culture has been ordered but not UA. The patient was started on Levaquin. Infectious Disease has been consulted for further recommendations regarding antibiotic therapy because of her multiple antibiotic allergies. REVIEW OF SYSTEMS: Positive points have been mentioned in HPI. Other systems negative. PAST MEDICAL HISTORY: Past medical history is significant for hypertension, DVT, coronary artery disease, pneumonia, renal insufficiency, rheumatoid arthritis, vertebral fracture. PAST SURGICAL HISTORY: Hysterectomy. Left knee replacement, left kidney removed, right hip fracture repair. SOCIAL HISTORY: No history of smoking, drinking or drug use. FAMILY HISTORY: No pertinent findings noticed. ALLERGIES: TO MULTIPLE MEDICATIONS INCLUDING NITROFURANTOIN, PENICILLIN WITH ANAPHYLAXIS, DOXYCYCLINE, SULFA. MEDICATION: Currently include the patient is on: Tylenol, Zyloprim, Norvasc, Tenormin, baclofen, TUMS, folic acid, Zofran, and Levaquin 500 mg daily. PHYSICAL EXAMINATION: Blood pressure 104/57 with a pulse of 65, temperature 97.6. She is 98% on room air. General description is an elderly female up in the bed in no distress. No tachypnea or accessory muscles of respiration use. HEENT: Examination shows no pallor or scleral icterus. Oral mucosa membranes are dry. No pharyngeal erythema or thrush. Neck: Trachea is central. No thyromegaly. LUNGS: Unlabored breathing. Clear to auscultation anteriorly. No wheeze or crackles. Heart S1, S2. Regular rate and rhythm. ABDOMEN: Soft, no tenderness. No guarding or rigidity. EXTREMITIES: No edema of the feet. Skin examination: No rash or mass palpable. Neurological: Patient is awake, alert, oriented times three. Mood and affect normal. LABS: Hemoglobin is 13.5, white count 12.9, BUN of 63, creatinine 2.58. Last urine culture in the system was 03/15 E coli resistant to quinolones. DIAGNOSTIC IMPRESSION AND PLAN: Patient admitted to the hospital with right flank pain in this patient who did have single kidney and history of recurrent urinary tract infections with the last urine culture positive for E coli that was resistant to Levaquin in this patient who did have MULTIPLE ANTIBIOTIC ALLERGIES, admitted with pain and concern for recurrent urinary tract infection with elevated white count. PLAN: 1. We will obtain UA and cultures. 2. Discontinue Levaquin. 3. Start the patient on Azactam 1 g every 12 hours. 4. We will follow up on clinical condition and culture to further adjust medication if needed. Thank you for this consultation. We will follow this patient along with you. MMODL / IJN: [id number] / MICHEAL
[2019-04-16 14:54] VITALS: BMI 23.8
--- NOTE | 2019-04-16 15:08 | P.HPIM ---
History of Present Illness H&P Date: 04/16/19 This is an 83-year-old female patient of Dr. Lyles and Dr. Johnson with a past medical history of rheumatoid arthritis, chronic kidney disease stage III with history of left-sided nephrectomy secondary to atrophic kidney, hypertension and advanced osteoarthritis. Patient has a known mass in her right kidney. She had a CAT scan on March 09 revealed stable right renal posterior upper pole in enhancing solid mass strongly suspicious for renal cell carcinoma especially given patient's history of left-sided renal cancer. Lesion measures 3.1 x 2.1 cm not significantly changed from June 2017. There is a new mild right-sided hydronephrosis and proximal hydroureter without mid ureter dilatation. No obstructing or right renal calculi identified. Patient complains of his increasing pain to the right flank area since Thursday she denies any abdominal pain. She has had nausea without vomiting, no diarrhea. She complains of chills. She states the pain is mostly on the right side but when she has strong spasms that goes across the entire lower back. Patient was seen in the office by Dr. Arauz on and there was concern for renal cell carcinoma based on the CAT scan report. This was during her last admission March 16 until March 18, She was treated for right-sided pyelonephritis with sepsis, Urine cultures positive for E. coli resistant to ampicillin, Unasyn and fluoroquinolones, cefuroxime. On discharge Nephrology has recommended a total of a four-week course of antibiotics due to her single kidney and immunnosuppression. She was seen by our office with Dr. Garcia yesterday April 15, still was having flank pain, which is still persistent despite 4 weeks of her oral Keflex, there is no new rashes, no diarrhea, pain is in the lower paralumbar area, just above the sacrum, no fever no chills, patient denies any falls, no hematuria, she was instructed to go the emergency room, however I discussed this with the daughter, she wants to be admitted directly with orders given to the nurse in the floor. Blood cultures showing cultures have been sent, urinalysis shows 5 WBCs, trace blood, RBC 2, BUN 59, creatinine 2.58, AST 48, renal ultrasound is requested today, along with x-rays of the ribs, she does have tenderness on bilateral ribs, consult also with Dr. Jeronimo brunner for chronic persistent UTIs pyelonephritis she does have angioedema with penicillin, did well with oral Keflex, Dr. Decker wanted Azactam IV Review of Systems Constitutional: Reports as per HPI, Reports anorexia, Reports chills, Denies chronic headaches, Denies chronic pain, Denies daytime sleepiness, Denies fatigue, Denies fever, Denies lethargy, Denies malaise, Denies night sweats, Denies poor appetite, Denies sweats, Denies weakness, Denies weight gain, Denies weight loss Ears, nose, mouth and throat: Reports as per HPI, Denies ant. neck pain, Denies bleeding gums, Denies dental pain, Denies dysphagia, Denies epistaxis, Denies headache, Denies hoarseness, Denies mouth pain, Denies nasal congestion, Denies nasal discharge, Denies neck fullness/pressure, Denies neck lump, Denies nose pain, Denies odynophagia, Denies post-nasal drip, Denies sinus pain, Denies sinus pressure, Denies swelling in mouth, Denies swelling in throat, Denies sore throat, Denies vertigo, Denies voice changes Cardiovascular: Reports as per HPI Respiratory: Reports as per HPI, Denies congestion, Denies cough, Denies cough with sputum, Denies dyspnea, Denies excessive sputum, Denies hemoptysis, Denies home oxygen, Denies pain, Denies pain on inspiration, Denies pleurisy, Denies respiratory infections, Denies sleep apnea, Denies snoring, Denies wheezing Gastrointestinal: Reports as per HPI Genitourinary: Reports as per HPI, Reports kidney stones, Reports stress incontinence, Reports urinary frequency Menstruation: Reports as per HPI Musculoskeletal: Reports as per HPI Integumentary: Reports as per HPI Neurological: Reports as per HPI, Denies aphasia, Denies ataxia, Denies balance difficulties, Denies burning pain, Denies change in mentation, Denies change in smell/taste, Denies change in speech, Denies confusion, Denies convulsions, Denies double vision, Denies gait dysfunction, Denies head injury, Denies headaches, Denies hearing difficulties, Denies lack of coordination, Denies loss of vision, Denies memory loss, Denies migraines, Denies motor disturbance, Denies numbness, Denies paralysis, Denies paresthesias, Denies seizures, Denies sensory deficit, Denies spasticity, Denies syncope, Denies tic, Denies tingling, Denies transient paralysis, Denies tremors, Denies vertigo, Denies weakness, Denies visual changes Psychiatric: Reports as per HPI Endocrine: Reports as per HPI, Denies cold intolerance, Denies deepening of the voice, Denies excessive sweating, Denies excessive thirst, Denies fatigue, Denies flushing, Denies heat intolerance, Denies high blood sugars, Denies increase in ring/shoe/hat size, Denies low blood sugars, Denies nocturia, Denies palpitations, Denies polydipsia, Denies polyphagia, Denies polyuria, Denies proptosis, Denies recent glucocorticoid use, Denies thyroid mass, Denies weight change Allergic/Immunologic: Reports as per HPI, Denies allergic rhinitis, Denies anaphylaxis, Denies angioedema, Denies gluten intolerance, Denies persistent infections, Denies seasonal allergies, Denies urticaria, Denies wheezing Past Medical History Past Medical History: Coronary Artery Disease (CAD), Deep Vein Thrombosis (DVT), GERD/Reflux, Hearing Disorder / Deafness, Hyperlipidemia, Hypertension, Pneumonia, Renal Disease, Rheumatoid Arthritis (RA) Additional Past Medical History / Comment(s): L nephrectomy d/t atrophied kidney, R upper pole renal solid mass being monitored, recent admission Feb, 2019 with pyelonephritis/sepsis, past pyelonephritis, rheumatic lung disease, pneumonias-several, pancytopenia, anemia, cardiac murmur, DVT L leg, gallstone, tinnitis/[place] L ear, compression fractures T12, L1-L3, back pain, hysterectomy d/t fibroids. History of Any Multi-Drug Resistant Organisms: None Reported Past Surgical History: Hysterectomy, Joint Replacement, Orthopedic Surgery Additional Past Surgical History / Comment(s): L nephrectomy, total L knee arthroplasty, R hip ORIF with hardware, colonoscopy, bilateral cataract removals/lens implants. Past Anesthesia/Blood Transfusion Reactions: No Reported Reaction, Blood Transfusion Reaction Additional Past Anesthesia/Blood Transfusion Reaction / Comment(s): pt stated that she was given blood before and she went into "pulmonary edema" and infusion was stopped. blood transfusion reaction before 1979 Smoking Status: Never smoker - Past Family History Father Family Medical History: Myocardial Infarction (ND) Additional Family Medical History / Comment(s): Father of a ND at the age of 85yrs. Mother Family Medical History: Congestive Heart Failure (CHF), Coronary Artery Disease (CAD) Additional Family Medical History / Comment(s): Mother of CHF at the age of 67yrs. Brother(s) Family Medical History: Cancer Additional Family Medical History / Comment(s): Brother of throat cancer. Medications and Allergies Home Medications Medication Instructions Recorded Confirmed Type Atenolol [Tenormin] 50 mg PO DAILY #60 tab 09/11/14 04/15/19 Rx predniSONE 5 mg PO DAILY #60 tab 09/11/14 04/15/19 Rx Zolpidem [Ambien] 10 mg PO HS PRN #3 tab 07/07/18 04/15/19 Rx traMADol HCL [Ultram] 50 mg PO Q6HR PRN #12 tablet 07/07/18 04/15/19 Rx Buprenorphine [Buprenorphine 5 5 mcg TRANSDERM FR 09/09/18 04/15/19 History MCG/HR] Allopurinol [Zyloprim] 100 mg PO DAILY 03/15/19 04/15/19 History Cholecalciferol [Vitamin D3 (25 1,000 unit PO DAILY 03/15/19 04/15/19 History Mcg = 1000 Iu)] Folic Acid 0.8 mg PO DAILY 03/15/19 04/15/19 History amLODIPine [Norvasc] 2.5 mg PO DAILY 03/15/19 04/15/19 History Cephalexin [Keflex] 250 mg PO Q8HR #75 capsule 03/18/19 04/15/19 Rx Sodium Bicarbonate Tab 650 mg PO BID #60 tab 03/18/19 04/15/19 Rx Baclofen 10 mg PO BID PRN 04/15/19 04/15/19 History Allergies Allergy/AdvReac Type Severity Reaction Status Date / Time codeine Allergy Rash/Hives Verified 04/15/19 14:31 nitrofurantoin Allergy Rash/Hives Verified 04/15/19 14:31 macrocrystalline [From Macrodantin] Penicillins Allergy Anaphylaxis Verified 04/15/19 14:31 doxycycline AdvReac Nausea & Verified 04/15/19 14:31 Vomiting Sulfa (Sulfonamide AdvReac Nausea & Verified 04/15/19 14:31 Antibiotics) Vomiting Physical Exam Vitals: Vital Signs Temp Pulse Resp BP Pulse Ox 04/16/19 08:00 64 04/16/19 05:00 97.5 F L 68 16 141/65 99 04/15/19 21:00 97.6 F 65 16 104/57 98 04/15/19 13:34 97.6 F 73 16 135/61 100 Intake and Output 04/15/19 04/16/19 04/16/19 22:59 06:59 14:59 Other: Voiding Method Toilet Toilet Toilet # Voids 1 3 - Constitutional General appearance: cooperative, no acute distress - EENT Eyes: EOMI, PERRLA, dentition normal ENT: NA/AT, normal oropharynx - Neck Neck: normal ROM - Respiratory Respiratory: bilateral: CTA, negative: diminished, dullness - Cardiovascular Rhythm: regular Heart sounds: normal: S1, S2 Abnormal Heart Sounds: no systolic murmur, no diastolic murmur, no rub, no S3 Gallop, no S4 Gallop, no click, no other - Gastrointestinal General gastrointestinal: normal bowel sounds, soft - Integumentary Integumentary: decreased turgor, normal - Neurologic Neurologic: CNII-XII intact - Musculoskeletal Musculoskeletal: gait normal, strength equal bilaterally - Psychiatric Psychiatric: A&O x's 3, appropriate affect, intact judgment & insight Results CBC & Chem 7: 04/16/19 06:54 04/16/19 06:54 Labs: Abnormal Lab Results - Last 24 Hours (Table) 04/15/19 04/15/19 04/15/19 Range/Units 14:08 14:08 22:25 WBC 12.9 H (3.8-10.6) k/uL Plt Count 39 L D (150-450) k/uL Monocytes # (Manual) (0-1.0) k/uL Sodium 134 L (137-145) mmol/L Carbon Dioxide 20 L (22-30) mmol/L BUN 63 H (7-17) mg/dL Creatinine 2.58 H (0.52-1.04) mg/dL AST 48 H (14-36) U/L Total Protein (6.3-8.2) g/dL Albumin (3.5-5.0) g/dL Urine Protein Trace H (Negative) Urine Blood Trace H (Negative) Urine Bacteria Rare H (None) /hpf 04/16/19 04/16/19 Range/Units 06:54 06:54 WBC (3.8-10.6) k/uL Plt Count 39 L (150-450) k/uL Monocytes # (Manual) 1.98 H (0-1.0) k/uL Sodium (137-145) mmol/L Carbon Dioxide 21 L (22-30) mmol/L BUN 59 H (7-17) mg/dL Creatinine 2.26 H (0.52-1.04) mg/dL AST (14-36) U/L Total Protein 5.9 L (6.3-8.2) g/dL Albumin 3.2 L (3.5-5.0) g/dL Urine Protein (Negative) Urine Blood (Negative) Urine Bacteria (None) /hpf Microbiology - Last 24 Hours (Table) 04/15/19 16:00 Urine Culture - Preliminary Urine,Clean Catch Laboratory Results WBC 9.9 k/uL (3.8-10.6) 04/16/19 06:54 RBC 4.02 m/uL (3.80-5.40) 04/16/19 06:54 Hgb 12.4 gm/dL (11.4-16.0) 04/16/19 06:54 Hct 38.5 % (34.0-46.0) 04/16/19 06:54 MCV 95.6 fL (80.0-100.0) 04/16/19 06:54 MCH 30.8 pg (25.0-35.0) 04/16/19 06:54 MCHC 32.2 g/dL (31.0-37.0) 04/16/19 06:54 RDW 14.4 % (11.5-15.5) 04/16/19 06:54 Plt Count 39 k/uL (150-450) L 04/16/19 06:54 Neutrophils % (Manual) 43 % 04/16/19 06:54 Band Neutrophils % 1 % 04/16/19 06:54 Lymphocytes % (Manual) 35 % 04/16/19 06:54 Monocytes % (Manual) 20 % 04/16/19 06:54 Eosinophils % (Manual) 1 % 04/16/19 06:54 Neutrophils # (Manual) 4.30 k/uL (1.3-7.7) 04/16/19 06:54 Lymphocytes # (Manual) 3.47 k/uL (1.0-4.8) 04/16/19 06:54 Monocytes # (Manual) 1.98 k/uL (0-1.0) H 04/16/19 06:54 Eosinophils # (Manual) 0.10 k/uL (0-0.7) 04/16/19 06:54 Nucleated RBCs 0 /100 WBC (0-0) 04/16/19 06:54 Manual Slide Review Performed 04/16/19 06:54 Reactive Lymphocytes Present 04/15/19 14:08 RBC Morphology Normal 04/15/19 14:08 Hypochromasia Slight 04/16/19 06:54 Poikilocytosis (manual Present 04/16/19 06:54 Sodium 137 mmol/L (137-145) 04/16/19 06:54 Potassium 4.2 mmol/L (3.5-5.1) 04/16/19 06:54 Chloride 107 mmol/L (98-107) 04/16/19 06:54 Carbon Dioxide 21 mmol/L (22-30) L 04/16/19 06:54 Anion Gap 9 mmol/L 04/16/19 06:54 BUN 59 mg/dL (7-17) H 04/16/19 06:54 Creatinine 2.26 mg/dL (0.52-1.04) H 04/16/19 06:54 Est GFR (CKD-EPI)AfAm 23 (>60 ml/min/1.73 sqM) 04/16/19 06:54 Est GFR (CKD-EPI)NonAf 20 (>60 ml/min/1.73 sqM) 04/16/19 06:54 Glucose 89 mg/dL (74-99) 04/16/19 06:54 Calcium 8.8 mg/dL (8.4-10.2) 04/16/19 06:54 Total Bilirubin 0.7 mg/dL (0.2-1.3) 04/16/19 06:54 AST 35 U/L (14-36) 04/16/19 06:54 ALT 18 U/L (4-34) 04/16/19 06:54 Alkaline Phosphatase 56 U/L (38-126) 04/16/19 06:54 Total Protein 5.9 g/dL (6.3-8.2) L 04/16/19 06:54 Albumin 3.2 g/dL (3.5-5.0) L 04/16/19 06:54 Urine Color Yellow 04/15/19 22:25 Urine Appearance Clear (Clear) 04/15/19 22:25 Urine pH 5.5 (5.0-8.0) 04/15/19 22:25 Ur Specific [place] 1.013 (1.001-1.035) 04/15/19 22:25 Urine Protein Trace (Negative) H 04/15/19 22:25 Urine Glucose (UA) Negative (Negative) 04/15/19 22:25 Urine Ketones Negative (Negative) 04/15/19 22:25 Urine Blood Trace (Negative) H 04/15/19 22:25 Urine Nitrite Negative (Negative) 04/15/19 22:25 Urine Bilirubin Negative (Negative) 04/15/19 22:25 Urine Urobilinogen <2.0 mg/dL (<2.0) 04/15/19 22:25 Ur Leukocyte Esterase Negative (Negative) 04/15/19 22:25 Urine RBC 2 /hpf (0-5) 04/15/19 22:25 Urine WBC 5 /hpf (0-5) 04/15/19 22:25 Ur Squamous Epith Cells <1 /hpf (0-4) 04/15/19 22:25 Urine Bacteria Rare /hpf (None) H 04/15/19 22:25 Thrombosis Risk Factor Assmnt - DVT/VTE Prophylaxis DVT/VTE Prophylaxis: Pharmacologic Prophylaxis ordered - Choose All That Apply Any of the Below Risk Factors Present?: Yes Other Risk Factors: Yes Each Risk Factor Represents 3 Points: Age 75 years or older, History of DVT/PE Other congenital or acquired thrombophilia - If yes, enter type in comment: No Thrombosis Risk Factor Assessment Total Risk Factor Score: 6 Thrombosis Risk Factor Assessment Level: High Risk Assessment and Plan Plan: 1. Sepsis secondary to right-sided pyelonephritis. Continue withAzactime IV piggyback daily and IV fluids. Urine culture is in progress. Blood culture will be ordered. Currently being followed by infectious disease Dr. Decker 2. Acute renal failure on chronic kidney disease stage III with a history of left-sided nephrectomy for atrophic kidney. Baseline creatinine 1.5, continue with IV fluids. Obtain renal ultrasound, recently with hydronephrosis, only has one kidney 3. Solid renal mass suspicious for renal cell carcinoma chronic, slow growing, they have recommended following this one as outpatient persistent suspicious mass or neoplasm upper pole right kidney. 4. CK D stage III, history of HTN nephrosclerosis as well as obstructive uropathy with prior episode of hydronephrosis, monitor creatinine, avoid for toxin agents, pain meds would be with tramadol, renal ultrasound to evaluate for hydronephrosis, 5. Hypertension. Continue atenolol 50 mg daily. 6. Insomnia. Continue with Ambien 10 mg at bedtime. 7. Rheumatoid arthritis. Continue prednisone 5 mg daily along with baclofen 5 mg twice a day and tramadol 50 mg every 6 hours as needed for pain. 8. DVT prophylaxis. Subcu heparin. 9. GI prophylaxis. Protonix Patient will be admitted to the hospital for a minimum of 2 night stay.
[2019-04-16] MEDS: traMADol 50 MG TAB PO PRN (15:23)
[2019-04-16] MEDS: ENOXAPARIN 30 MG/0.3 ML SYRINGE SQ SCH (15:25)
--- NOTE | 2019-04-16 15:54 | XR ---
EXAMINATION TYPE: XR ribs bilateral DATE OF EXAM: 04/16/2019 COMPARISON: Chest x-ray 07/03/2018 HISTORY: Osteoporotic fracture TECHNIQUE: 8 views FINDINGS: I see no pleural effusion or pneumothorax. There is slight deformity of the anterior left n inth rib that is probably an old fracture. I see no definite acute fracture. IMPRESSION: No acute rib fracture seen.
--- NOTE | 2019-04-16 16:42 | US ---
EXAMINATION TYPE: US kidneys/renal and bladder DATE OF EXAM: 04/16/2019 COMPARISON: NONE CLINICAL HISTORY: hydroneprhosis. Hydronephrosis left kidney surgically absent. EXAM MEASUREMENTS: Right Kidney: 10.2 x 4.2 x 3.0 cm Left Kidney: Surgically absent cm Right Kidney: Solid mass upper pole measuring 4.2 x 4.1 x 3.4 cm Left Kidney: Surgically absent Bladder: Anechoic Bilateral Jets seen: no There is no evidence for hydronephrosis at this point in time. No nephrolithiasis is seen. No xiomy s are identified. The urinary bladder is anechoic. IMPRESSION: There is solid mass upper pole right kidney. This mass is also present on old CT scan of 03/09/2019 a nd measures slightly larger. No hydronephrosis. No evidence of right renal obstruction. Normal urinar y bladder.
--- NOTE | 2019-04-16 23:50 | PN ---
PROGRESS NOTE DATE OF SERVICE: 04/16/2019 REASON FOR FOLLOWUP: Urinary tract infection. INTERVAL HISTORY: The patient is currently afebrile. Patient is breathing comfortably. The patient's right flank pain has slightly improved. No nausea, no vomiting. No abdominal pain, no diarrhea. PHYSICAL EXAMINATION: Blood pressure is 122/50 with a pulse of 67, temperature 97.7, she is 99% on room air. General description is an elderly female up in the bed in no distress. Respiratory system: Unlabored breathing, clear to auscultation anteriorly. Heart S1, S2. Regular rate and rhythm. Abdomen soft, no tenderness. LABS: Hemoglobin is 12.4, white count normalized to 9.9 with a BUN of 59, creatinine is 2.26. Urine cultures currently pending. DIAGNOSTIC IMPRESSION AND PLAN: Patient in the hospital with urinary tract infection. This patient did have history of recurrent UTI and right flank pain. Patient at this time covered with Azactam because of multiple antibiotic allergy. It will be continued, adjusting antibiotic for the culture report. Continue supportive care. MMODL / IJN: [id number] /
[2019-04-17] MEDS: traMADol 50 MG TAB PO PRN ×2 (04:20→20:03)
[2019-04-17] MEDS: SODIUM CHLORIDE 0.9% 1,000 ML IV SCH ×2 (05:23→07:41)
[2019-04-17] MEDS: predniSONE 5 MG TAB PO SCH (07:37)
[2019-04-17] MEDS: FOLIC ACID 1 MG TAB PO SCH (07:37)
[2019-04-17] MEDS: ATENOLOL 50 MG TAB PO SCH (07:37)
[2019-04-17] MEDS: ALLOPURINOL 100 MG TAB PO SCH (07:38)
[2019-04-17] MEDS: CHOLECALCIFEROL 1,000 UNIT TAB PO SCH (07:38)
[2019-04-17] MEDS: SODIUM BICARBONATE TAB 650 MG TAB PO SCH ×2 (07:38→20:01)
[2019-04-17] MEDS: BACLOFEN 10 MG TAB PO PRN (07:38)
[2019-04-17] MEDS: amLODIPine 2.5 MG TAB PO SCH (07:38)
[2019-04-17] MEDS: CALCIUM CARBONATE 500 MG CHEWABLE PO PRN (07:38)
[2019-04-17] MEDS: ENOXAPARIN 30 MG/0.3 ML SYRINGE SQ SCH (07:39)
[2019-04-17] MEDS: AZTREONAM 1 GM in SODIUM CHLORIDE 0.9% 100 ML IVPB SCH ×2 (09:37→22:09)
--- NOTE | 2019-04-17 15:57 | PN ---
PROGRESS NOTE DATE OF SERVICE: 04/17/2019. REASON FOR FOLLOWUP: Urinary tract infection and question of pyelonephritis. INTERVAL HISTORY: The patient is currently afebrile. Patient is breathing comfortably. The patient's right flank pain has improved. No nausea, vomiting. No abdominal pain. No burning or frequency of urine and no hematuria. PHYSICAL EXAMINATION: Blood pressure 133/67, pulse of 57. Temperature 97.8. She is 98% on room air. General description is an elderly female lying in bed in no distress. Respiratory system: Unlabored breathing. Clear to auscultation. Heart S1, S2. Regular rate and rhythm. Abdomen soft, no tenderness. LABS: White count normal at 9.9. UA done on this admission was negative. DIAGNOSTIC IMPRESSION AND PLAN: Patient admitted to the hospital with right flank pain could be related to her mass in the right kidney or possible bleeding in that area as the patient did have some hematuria. Clinically doubt pyelonephritis in this patient with no fever and her UA is negative. Antibiotic can be safely discontinued. No need for antibiotic on discharge. This was explained to the patient as well as the admitting physician. MMODL / IJN: [id number] /
--- NOTE | 2019-04-17 18:01 | P.PN ---
Subjective Progress Note Date: 04/17/19 This is an 83-year-old female patient of Dr. Lyles and Dr. Johnson with a past medical history of rheumatoid arthritis, chronic kidney disease stage III with history of left-sided nephrectomy secondary to atrophic kidney, hypertension and advanced osteoarthritis. Patient has a known mass in her right kidney. She had a CAT scan on March 09 revealed stable right renal posterior upper pole in enhancing solid mass strongly suspicious for renal cell carcinoma especially given patient's history of left-sided renal cancer. Lesion measures 3.1 x 2.1 cm not significantly changed from June 2017. There is a new mild right-sided hydronephrosis and proximal hydroureter without mid ureter dilat ation. No obstructing or right renal calculi identified. Patient complains of his increasing pain to the right flank area since Thursday she denies any abdominal pain. She has had nausea without vomiting, no diarrhea. She complains of chills. She states the pain is mostly on the right side but when she has strong spasms that goes across the entire lower back. Patient was seen in the office by Dr. Arauz on and there was concern for renal cell carcinoma based on the CAT scan report. This was during her last admission March 16 until March 18, She was treated for right-sided pyelonephritis with sepsis, Urine cultures positive for E. coli resistant to ampicillin, Unasyn and fluoroquinolones, cefuroxime. On discharge Nephrology has recommended a total of a four-week cour se of antibiotics due to her single kidney and immunnosuppression. She was seen by our office with Dr. Garcia yesterday April 15, still was having flank pain, which is still persistent despite 4 weeks of her oral Keflex, there is no new rashes, no diarrhea, pain is in the lower paralumbar area, just above the sacrum, no fever no chills, patient denies any falls, no hematuria, she was instructed to go the emergency room, however I discussed this with the daughter, she wants to be admitted directly with orders given to the nurse in the floor. Blood cultures showing cultures have been sent, urinalysis shows 5 WBCs, trace blood, RBC 2, BUN 59, creatinine 2.58, AST 48, renal ultrasound is requested today, along with x-rays of the ribs, she does have tenderness on bilateral ribs, consult also with Dr. Jeronimo brunner for chronic persistent UTIs pyelonephritis she does have angioedema with penicillin, did well with oral Keflex, Dr. Decker wanted Azactam IV 04/17: Patient clinically is doing well, intermittent back pain, some pus nausea no vomiting, mental alertness is better,, no nausea vomiting, appetite has significantly improved, cultures are negative in the urine, final, blood cu ltures are negative, creatinine at 2.26 from 2.58, urinalysis failed to reveal any pyuria, has no hydronephrosis or kidney stones on urinalysis, still with the right renal mass as noted, Dr. Decker has to decide regarding on antibiotic prophylaxis, has for culture proven E. coli this year from the urine, patient has recurrent UTI especially after at Actemra infusion, we will discuss alternative regarding our a treatment and antibiotic prophylaxis, the 2 specialties would decide these as an outpatient, along with antibiotic management with Dr. Decker prior to discharge. Review of Systems Constitutional: Reports as per HPI, Reports anorexia, Reports chills, Denies chronic headaches, Denies chronic pain, Denies daytime sleepiness, Denies fatigue, Denies fever, Denies lethargy, Denies malaise, Denies night sweats, Denies poor appetite, Denies sweats, Denies weakness, Denies weight gain, Denies weight loss Ears, nose, mouth and throat: Reports as per HPI, Denies ant. neck pain, Denies bleeding gums, Denies dental pain, Denies dysphagia, Denies epistaxis, Denies headache, Denies hoarseness, Denies mouth pain, Denies nasal congestion, Denies nasal discharge, Denies neck fullness/pressure, Denies neck lump, Denies nose p ain, Denies odynophagia, Denies post-nasal drip, Denies sinus pain, Denies sinus pressure, Denies swelling in mouth, Denies swelling in throat, Denies sore throat, Denies vertigo, Denies voice changes Cardiovascular: Reports as per HPI Respiratory: Reports as per HPI, Denies congestion, Denies cough, Denies cough with sputum, Denies dyspnea, Denies excessive sputum, Denies hemoptysis, Denies home oxygen, Denies pain, Denies pain on inspiration, Denies pleurisy, Denies respiratory infections, Denies sleep apnea, Denies snoring, Denies wheezing Gastrointestinal: Reports as per HPI Genitourinary: Reports as per HPI, Reports kidney stones, Reports stress incontinence, Reports urinary frequency Menstruation: Reports as per HPI Musculoskeletal: Reports as per HPI Integumentary: Reports as per HPI Neurological: Reports as per HPI, Denies aphasia, Denies ataxia, Denies balance difficulties, Denies burning pain, Denies change in mentation, Denies change in smell/taste, Denies change in speech, Denies confusion, Denies convulsions, Denies double vision, Denies gait dysfunction, Denies head injury, Denies headaches, Denies hearing difficulties, Denies lack of coordination, Denies loss of vision, Denies memory loss, Denies migraines, Denies motor disturbance, Denies numbness, Denies paralysis, Denies paresthesias, Denies seizures, Denies sensory deficit, Denies spasticity, Denies syncope, Denies tic, Denies tingling, Denies transient paralysis, Denies tremors, Denies vertigo, Denies weakness, Denies visual changes Psychiatric: Reports as per HPI Endocrine: Reports as per HPI, Denies cold intolerance, Denies deepening of the voice, Denies excessive sweating, Denies excessive thirst, Denies fatigue, Denies flushing, Denies heat intolerance, Denies high blood sugars, Denies increase in ring/shoe/hat size, Denies low blood sugars, Denies nocturia, Denies palpitations, Denies polydipsia, Denies polyphagia, Denies polyuria, Denies pro ptosis, Denies recent glucocorticoid use, Denies thyroid mass, Denies weight change Allergic/Immunologic: Reports as per HPI, Denies allergic rhinitis, Denies anaphylaxis, Denies angioedema, Denies gluten intolerance, Denies persistent infections, Denies seasonal allergies, Denies urticaria, Denies wheezing Objective - Vital Signs Vital signs: Vital Signs Temp 97.8 F 04/17/19 11:24 Pulse 57 L 04/17/19 11:24 Resp 16 04/17/19 11:24 BP 133/67 04/17/19 11:24 Pulse Ox 98 04/17/19 11:24 Intake & Output 04/16/19 04/17/19 04/17/19 18:59 06:59 18:59 Intake Total 2656 139 4253 Balance 4154 151 9602 Weight 55.338 kg Intake: Intake, IV Titration 750 150 650 Amount Aztreonam 1 gm In Sodium 100 100 Chloride 0.9% 100 ml @ 100 mls/hr IVPB Q12H [facility] Rx#:[id number] Sodium Chloride 0.9% 1, 650 150 550 000 ml @ 50 mls/hr IV . Q20H [facility] Rx#:[id number] Oral 580 580 Other: Voiding Method Toilet Toilet Toilet # Voids 3 2 2 - Constitutional General appearance: Present: cooperative, no acute distress - EENT Eyes: Present: anicteric sclerae, EOMI, PERRLA, dentition normal, normal appearance ENT: Present: NA/AT, normal oropharynx - Neck Neck: Present: normal ROM - Respiratory Respiratory: bilateral: CTA, negative: diminished, dullness, rales, rhonchi - Cardiovascular Rhythm: regular Heart sounds: normal: S1, S2 - Gastrointestinal General gastrointestinal: Present: normal bowel sounds, soft - Integumentary Integumentary: Present: decreased turgor, normal - Neurologic Neurologic: Present: CNII-XII intact - Musculoskeletal Musculoskeletal: Present: gait normal, strength equal bilaterally - Psychiatric Psychiatric: Present: A&O x's 3, appropriate affect, intact judgment & insight - Labs CBC & Chem 7: 04/16/19 06:54 04/16/19 06:54 Labs: Microbiology - Last 24 Hours (Table) 04/15/19 16:00 Urine Culture - Final Urine,Clean Catch 04/15/19 14:08 Blood Culture - Preliminary Blood No Growth after 24 hours Assessment and Plan Plan: 1. Leukocytosis Sepsis possibly acute phase reaction from dehydration, viral illness ruled out right-sided pyelonephritis. Continue withAzactime IV piggyback daily and IV fluids. Urine culture is in progress. Blood culture will be ordered. Currently being followed by infectious disease Dr. Decker antibiotic management for prophylaxis would need to be decided by Dr. Decker, as the patient requires monthly infusion for Actemra for RA. Recurrent UTIs, 2. Acute renal failure on chronic kidney disease stage III with a history of left-sided nephrectomy for atrophic kidney. Baseline creatinine 1.5, continue with IV fluids. Obtain renal ultrasound resolved hydronephrosis no nephrolithiasis based on current ultrasound, recently with hydronephrosis, only has one kidney 3. Right Solid renal mass suspicious for renal cell carcinoma chronic, slow growing, they have recommended following this one as outpatient persistent suspicious mass or neoplasm upper pole right kidney. 4. CK D stage III, history of HTN nephrosclerosis as well as obstructive uropathy with prior episode of hydronephrosis, monitor creatinine, avoid for toxin agents, pain meds would be with tramadol, renal ultrasound to evaluate for hydronephrosis, see above 5. Hypertension. Continue atenolol 50 mg daily. 6. Insomnia. Continue with Ambien 10 mg at bedtime. 7. Rheumatoid arthritis. Continue prednisone 5 mg daily along with baclofen 5 mg twice a day and tramadol 50 mg every 6 hours as needed for pain., Actemra IV infusion monthly from rheumatology, this can cause recurrent sepsis and infections, prolonged treatment needs to be careful with be decided by both ID and RA Dr. Continue prednisone 8. DVT prophylaxis. Subcu heparin. 9. GI prophylaxis. Protonix Patient will be admitted to the hospital for a minimum of 2 night stay. Discharge planning, most likely to be discharged in next 24 hours
[2019-04-17] MEDS: ZOLPIDEM 5 MG TAB PO PRN (22:21)
[2019-04-18 05:03] VITALS: BP 146/73; PULSE 65; RESP 14; TEMP 97.8
[2019-04-18] MEDS: AZTREONAM 1 GM in SODIUM CHLORIDE 0.9% 100 ML IVPB SCH ×2 (09:25→09:41)
[2019-04-18] MEDS: ATENOLOL 50 MG TAB PO SCH (09:26)
[2019-04-18] MEDS: CHOLECALCIFEROL 1,000 UNIT TAB PO SCH (09:26)
[2019-04-18] MEDS: ENOXAPARIN 30 MG/0.3 ML SYRINGE SQ SCH (09:26)
[2019-04-18] MEDS: ALLOPURINOL 100 MG TAB PO SCH (09:26)
[2019-04-18] MEDS: SODIUM BICARBONATE TAB 650 MG TAB PO SCH (09:26)
[2019-04-18] MEDS: FOLIC ACID 1 MG TAB PO SCH (09:26)
[2019-04-18] MEDS: predniSONE 5 MG TAB PO SCH (09:26)
[2019-04-18] MEDS: amLODIPine 2.5 MG TAB PO SCH (09:26)
--- NOTE | 2019-04-18 15:49 | P.DS ---
Providers Date of admission: 04/15/19 13:17 Attending physician: Angela Araujo Consults: 04/15/19 13:35 Consult Physician Urgent Consulting Provider: Kecia Decker Consult Reason/Comments: pyelonephritis Do you want consulting provider notified?: Yes 04/18/19 15:33 Consult Physician Routine Consulting Provider: Travis Horne Consult Reason/Comments: RIVERA on CKD Do you want consulting provider notified?: Yes Primary care physician: Charo Garcia MD Hospital Course: This is an 83-year-old female patient of Dr. Lyles and Dr. Johnson with a past medical history of rheumatoid arthritis, chronic kidney disease stage III with history of left-sided nephrectomy secondary to atrophic kidney, hypertension and advanced osteoarthritis. Patient has a known mass in her right kidney. She had a CAT scan on March 09 revealed stable right renal posterior upper pole in enhancing solid mass strongly suspicious for renal cell carcinoma especially given patient's history of left-sided renal cancer. Lesion measures 3.1 x 2.1 cm not significantly changed from June 2017. There is a new mild right-sided hydronephrosis and proximal hydroureter without mid ureter dilatation. No obstructing or right renal calculi identified. Patient complains of his increasing pain to the right flank area since Thursday she denies any abdominal pain. She has had nausea without vomiting, no diarrhea. She complains of chills. She states the pain is mostly on the right side but when she has strong spasms that goes across the entire lower back. Patient was seen in the office by Dr. Arauz on and there was concern for renal cell carcinoma based on the CAT scan report. This was during her last admission March 16 until March 18, She was treated for right-sided pyelonephritis with sepsis, Urine cultures positive for E. coli resistant to ampicillin, Unasyn and fluoroquinolones, cefuroxime. On discharge Nephrology has recommended a total of a four-week course of antibiotics due to her single kidney and immunnosuppression. She was seen by our office with Dr. Garcia yesterday April 15, still was having flank pain, which is still persistent despite 4 weeks of her oral Keflex, there is no new rashes, no diarrhea, pain is in the lower paralumbar area, just above the sacrum, no fever no chills, patient denies any falls, no hematuria, she was instructed to go the emergency room, however I discussed this with the daughter, she wants to be admitted directly with orders given to the nurse in the floor. Blood cultures showing cultures have been sent, urinalysis shows 5 W BCs, trace blood, RBC 2, BUN 59, creatinine 2.58, AST 48, renal ultrasound is requested today, along with x-rays of the ribs, she does have tenderness on bilateral ribs, consult also with Dr. Jeronimo brunner for chronic persistent UTIs pyelonephritis she does have angioedema with penicillin, did well with oral Keflex, Dr. Decker wanted Azactam IV 04/17: Patient clinically is doing well, intermittent back pain, some pus nausea no vomiting, mental alertness is better,, no nausea vomiting, appetite has significantly improved, cultures are negative in the urine, final, blood cultures are negative, creatinine at 2.26 from 2.58, urinalysis failed to reveal any pyuria, has no hydronephrosis or kidney stones on urinalysis, still with the right renal mass as noted, Dr. Decker has to decide regarding on antibiotic prophylaxis, has for culture proven E. coli this year from the urine, patient has recurrent UTI especially after at Actemra infusion, we will discuss alternative regarding our a treatment and antibiotic prophylaxis, the 2 specialties would decide these as an outpatient, along with antibiotic management with Dr. Decker prior to discharge. 04/18 patient evaluated bedside. Denies any chills, hematuria or burning or frequency. Urine analysis came back negative urine culture and negative for any infection. UTI ruled out Discharge diagnosis 1. Leukocytosis Sepsis ruled out secondary to dehydration 2. Acute renal failure on chronic kidney disease stage III with a history of left-sided nephrectomy for atrophic kidney. Baseline creatinine 1.5, 3. Right Solid renal mass suspicious for renal cell carcinoma chronic, slow growing, 4. CK D stage III, history of HTN nephrosclerosis as well as obstructive uropathy with prior episode of hydronephrosis 5. Hypertension. 6. Insomnia. 7. Rheumatoid arthritis. Patient Condition at Discharge: Fair Plan - Discharge Summary Discharge Rx Participant: No New Discharge Prescriptions: Continue predniSONE 5 mg PO DAILY #60 tab Atenolol [Tenormin] 50 mg PO DAILY #60 tab Zolpidem [Ambien] 10 mg PO HS PRN #3 tab PRN Reason: insomnia traMADol HCL [Ultram] 50 mg PO Q6HR PRN #12 tablet PRN Reason: Pain Buprenorphine [Buprenorphine 5 MCG/HR] 5 mcg TRANSDERM FR amLODIPine [Norvasc] 2.5 mg PO DAILY Allopurinol [Zyloprim] 100 mg PO DAILY Folic Acid 0.8 mg PO DAILY Cholecalciferol [Vitamin D3 (25 Mcg = 1000 Iu)] 1,000 unit PO DAILY Sodium Bicarbonate Tab 650 mg PO BID #60 tab Baclofen 10 mg PO BID PRN PRN Reason: muscle spasms Discontinued Cephalexin [Keflex] 250 mg PO Q8HR #75 capsule Discharge Medication List Atenolol [Tenormin] 50 mg PO DAILY #60 tab 09/11/14 [Rx] predniSONE 5 mg PO DAILY #60 tab 09/11/14 [Rx] Zolpidem [Ambien] 10 mg PO HS PRN #3 tab 07/07/18 [Rx] traMADol HCL [Ultram] 50 mg PO Q6HR PRN #12 tablet 07/07/18 [Rx] Buprenorphine [Buprenorphine 5 MCG/HR] 5 mcg TRANSDERM FR 09/09/18 [History] Allopurinol [Zyloprim] 100 mg PO DAILY 03/15/19 [History] Cholecalciferol [Vitamin D3 (25 Mcg = 1000 Iu)] 1,000 unit PO DAILY 03/15/19 [History] Folic Acid 0.8 mg PO DAILY 03/15/19 [History] amLODIPine [Norvasc] 2.5 mg PO DAILY 03/15/19 [History] Sodium Bicarbonate Tab 650 mg PO BID #60 tab 03/18/19 [Rx] Baclofen 10 mg PO BID PRN 04/15/19 [History] Discharge Disposition: HOME SELF-CARE
--- NOTE | 2019-04-18 18:10 | PN ---
PROGRESS NOTE DATE OF SERVICE: 04/18/2019 REASON FOR FOLLOWUP: Urinary tract infection. INTERVAL HISTORY: The patient is currently afebrile. The patient has been breathing comfortably. The patient's right flank pain has improved. No nausea, no vomiting and no diarrhea. PHYSICAL EXAMINATION: Blood pressure 146/73 with a pulse of 55, temperature 97.8 and she is 99% on room air. General description is an elderly female up in the bed in no distress. Respiratory system: Unlabored breathing. Decreased breath sounds at the bases. No wheeze. Heart S1, S2. Regular rate. Abdomen soft, no tenderness. LABS: No new labs have been obtained today. Urine culture negative. Blood culture negative. DIAGNOSTIC IMPRESSION AND PLAN: Patient admitted to the hospital with right flank pain in this patient who did have history of right renal mass and recurrent urinary tract infection. The patient's urine was not significantly positive and the cultures came back negative. With no fever or significantly elevated white count, suspicion low for underlying pyelonephritis. With urine culture negative no need for any the antibiotic on discharge. Has been discussed in detail with the admitting physician as well as the patient. MMODL / IJN: [id number] /
[2019-04-22] MEDS ORDERED: BUPRENORPHINE 5 MCG TOPICAL SCH (09:00)
== END 2019-04-18 17:40 | disposition home or self-care (01) | DRG 641 ==
LOC: 5NMEDONC 13:17
PROVIDERS: ADMIT Family Medicine; ATTEND Family Medicine
DX: E86.0 Dehydration (principal); N17.9 Acute kidney failure, unspecified; N13.30 Unspecified hydronephrosis; D72.829 Elevated white blood cell count, unspecified; N18.3 Chronic kidney disease, stage 3 (moderate); I12.9 Hypertensive chronic kidney disease with stage 1 through stage 4 chronic kidney disease, or unspecified chronic kidney disease; K21.9 Gastro-esophageal reflux disease without esophagitis; H91.90 Unspecified hearing loss, unspecified ear; E78.5 Hyperlipidemia, unspecified; N28.9 Disorder of kidney and ureter, unspecified; M06.9 Rheumatoid arthritis, unspecified; N13.9 Obstructive and reflux uropathy, unspecified; I25.10 Atherosclerotic heart disease of native coronary artery without angina pectoris; R31.9 Hematuria, unspecified; M54.9 Dorsalgia, unspecified; G47.00 Insomnia, unspecified; M19.90 Unspecified osteoarthritis, unspecified site; Z79.52 Long term (current) use of systemic steroids; Z79.899 Other long term (current) drug therapy; Z86.718 Personal history of other venous thrombosis and embolism; Z90.5 Acquired absence of kidney; Z98.42 Cataract extraction status, left eye; Z98.41 Cataract extraction status, right eye; Z96.1 Presence of intraocular lens; Z87.81 Personal history of (healed) traumatic fracture; Z87.440 Personal history of urinary (tract) infections; Z96.652 Presence of left artificial knee joint; Z90.710 Acquired absence of both cervix and uterus; Z85.528 Personal history of other malignant neoplasm of kidney; Z88.1 Allergy status to other antibiotic agents; Z88.5 Allergy status to narcotic agent; Z88.0 Allergy status to penicillin; Z88.2 Allergy status to sulfonamides; Z82.49 Family history of ischemic heart disease and other diseases of the circulatory system; Z80.0 Family history of malignant neoplasm of digestive organs
CPT/HCPCS: 71110; 76770; 80053; 81001; 85025; 87040; 87086

== ENCOUNTER → 2019-06-29 | Outpatient (CLI) | payer MEDICARE, OTHER ==
[2019-06-29 14:37] LABS: Basophils % (A) 0 %; Eosinophils # (A) 0.1 k/uL (0-0.7); Eosinophils % (A) 1 %; HGB 11.4 gm/dL (11.4-16.0); Hypochromasia Moderate; Lymphocytes # (A) 1.8 k/uL (1.0-4.8); Lymphocytes % (A) 17 %; MCH 30.7 pg (25.0-35.0); MCHC 30.7 g/dL (31.0-37.0); MCV 99.8 fL (80.0-100.0); Macrocytosis Slight; Mean Platelet Volume 8.8; Monocytes # (A) 0.9 k/uL (0-1.0); Monocytes % (A) 9 %; Neutrophils # (A) 7.6 k/uL (1.3-7.7); Neutrophils % (A) 72 %; Platelet Count 121 k/uL (150-450); RBC 3.71 m/uL (3.80-5.40); WBC 10.5 k/uL (3.8-10.6)
[2019-06-29 15:40] LABS: Erythrocyte Sedimentation Rate 20 mm/hr (0-20)
[2019-06-29 20:25] LABS: African American GFR (CKD) 34.4 (60.0-200.0); C Reactive Protein 1.4 mg/dL (0.0-0.8); Non-African American GFR(CKD) 29.7 (60.0-200.0)
== END | disposition home or self-care (01) ==
LOC: LABWHC1 13:28
PROVIDERS: ATTEND Internal Medicine Rheumatology
DX: M25.50 Pain in unspecified joint (principal); M06.4 Inflammatory polyarthropathy; Z79.899 Other long term (current) drug therapy
CPT/HCPCS: 36415; 82565; 84450; 84460; 84520; 85025; 85652; 86140

== ENCOUNTER 2019-08-26 16:35 | Inpatient (IN) | payer MEDICARE, OTHER ==
[2019-08-26] MEDS ORDERED: SODIUM CHLORIDE 0.9% 1,000 ML IV STA (16:40)
[2019-08-26] MEDS ORDERED: LEVOFLOXACIN 500MG-D5W PMX 500 MG in DEXTROSE/WATER 1 100ML.BAG IVPB STA (16:50)
--- NOTE | 2019-08-26 16:52 | ED ---
General Adult HPI - General Stated complaint: Unresponsive Source: patient, family, RN notes reviewed, old records reviewed - History of Present Illness Initial comments: 83-year-old female presenting from home with altered mental status, she was found minimally responsive by family after approximately possibly 8 hours of being on the floor. She was transported by EMS she was on a nonrebreather with agonal respirations. She has a advanced directive and is a DO NOT RESUSCITATE. Further history obtained from the patient's daughter who is at bedside. She does have history of recurrent urinary tract infections. - Related Data Home Medications Medication Instructions Recorded Confirmed Buprenorphine [Buprenorphine 5 1 patch TRANSDERM FR 09/09/18 04/26/19 MCG/HR] Allopurinol [Zyloprim] 100 mg PO DAILY 03/15/19 04/26/19 Baclofen 10 mg PO BID PRN 04/15/19 04/26/19 Previous Rx's Medication Instructions Recorded Atenolol [Tenormin] 50 mg PO DAILY #60 tab 09/11/14 predniSONE 5 mg PO DAILY #60 tab 09/11/14 Zolpidem [Ambien] 10 mg PO HS PRN #3 tab 07/07/18 traMADol HCL [Ultram] 50 mg PO Q6HR PRN #12 tablet 07/07/18 Sodium Bicarbonate Tab 650 mg PO BID #60 tab 03/18/19 DAPTOmycin [Cubicin] 250 mg IVPB Q24H #10 dose 04/28/19 Cholecalciferol [Vitamin D3 (25 1,000 unit PO DAILY tab 04/29/19 Mcg = 1000 Iu)] Folic Acid 1 mg PO DAILY tab 04/29/19 Allergies Allergy/AdvReac Type Severity Reaction Status Date / Time codeine Allergy Rash/Hives Verified 08/26/19 16:52 nitrofurantoin Allergy Rash/Hives Verified 08/26/19 16:52 macrocrystalline [From Macrodantin] Penicillins Allergy Anaphylaxis Verified 08/26/19 16:52 doxycycline AdvReac Nausea & Verified 08/26/19 16:52 Vomiting Sulfa (Sulfonamide AdvReac Nausea & Verified 08/26/19 16:52 Antibiotics) Vomiting Review of Systems ROS Statement: Those systems with pertinent positive or pertinent negative responses have been documented in the HPI. ROS Other: All systems not noted in ROS Statement are negative. Past Medical History Past Medical History: Coronary Artery Disease (CAD), Deep Vein Thrombosis (DVT), GERD/Reflux, Hearing Disorder / Deafness, Hyperlipidemia, Hypertension, Pneumonia, Renal Disease, Rheumatoid Arthritis (RA) Additional Past Medical History / Comment(s): L nephrectomy d/t atrophied kidney, R upper pole renal solid mass being monitored, recent admission Feb, 2019 with pyelonephritis/sepsis, past pyelonephritis, rheumatic lung disease, pneumonias-several, pancytopenia, anemia, cardiac murmur, DVT L leg, gallstone, tinnitis/[place] L ear, compression fractures T12, L1-L3, back pain, hysterectomy d/t fibroids. History of Any Multi-Drug Resistant Organisms: None Reported Past Surgical History: Hysterectomy, Joint Replacement, Orthopedic Surgery Additional Past Surgical History / Comment(s): L nephrectomy, total L knee arthroplasty, R hip ORIF with hardware, colonoscopy, bilateral cataract removals/lens implants. Past Anesthesia/Blood Transfusion Reactions: No Reported Reaction, Blood Transfusion Reaction Additional Past Anesthesia/Blood Transfusion Reaction / Comment(s): pt stated that she was given blood before and she went into "pulmonary edema" and infusion was stopped. blood transfusion reaction before 1979 Past Psychological History: No Psychological Hx Reported Smoking Status: Never smoker - Past Family History Father Family Medical History: Myocardial Infarction (ME) Additional Family Medical History / Comment(s): Father of a ME at the age of 85yrs. Sister(s) Family Medical History: Coronary Artery Disease (CAD) (Patient had 2 sisters one of them from COPD the other one is alive.) Daughter(s) Family Medical History: No Reported History (Patient has 2 daughters no major medical problem.) Son(s) Family Medical History: Coronary Artery Disease (CAD) (Patient has 2 sons one of them with heart disease.) Mother Family Medical History: Congestive Heart Failure (CHF), Coronary Artery Disease (CAD) Additional Family Medical History / Comment(s): Mother of CHF at the age of 67yrs. Brother(s) Family Medical History: Cancer Additional Family Medical History / Comment(s): Brother of throat cancer. General Exam General appearance: lethargic, obtunded, in distress Head exam: Present: atraumatic, normocephalic Eye exam: Present: PERRL. Absent: EOMI, periorbital tenderness ENT exam: Present: mucous membranes dry Neck exam: Present: normal inspection, tenderness Respiratory exam: Present: respiratory distress, rhonchi, decreased breath sounds Cardiovascular Exam: Present: normal rhythm, bradycardia GI/Abdominal exam: Present: soft. Absent: distended, tenderness, guarding Extremities exam: Present: other (Mottled bilateral extremities) Neurological exam: Absent: alert Skin exam: Present: intact, cyanosis, pallor, mottled Course Vital Signs 08/26/19 08/26/19 08/26/19 16:40 17:00 17:15 Pulse Rate 58 L 49 L 46 L Respiratory 16 16 16 Rate Blood Pressure 64/35 57/32 50/26 O2 Sat by Pulse 78 L 81 L 84 L Oximetry 08/26/19 08/26/19 08/26/19 17:30 17:42 17:47 Pulse Rate 52 L 54 L Respiratory 26 H 24 Rate Blood Pressure 55/36 65/22 O2 Sat by Pulse 76 L 91 L 90 L Oximetry - Reevaluation(s) Reevaluation #1: 08/26/19 1730 Had multiple discussions with the patient's daughters who are at bedside, patient would not want aggressive measures. We discussed supportive medications like antibiotics and IV fluids as well as comfort measures. Patient will be admitted for comfort measures. Case discussed with Dr. Garcia who will admit. EKG Findings - EKG Comments: EKG Findings:: EKG: Sinus bradycardia, prolonged QT, rate of 57, MI interval 162, QRS duration 92, QTC 502, no ST segment elevation. Medical Decision Making - Medical Decision Making 83-year-old female presenting critically ill. She is agonal, bradycardic and hypotensive upon arrival. She has very poor perfusion, she is mottled and cyanotic in her extremities. She has a DO NOT INTUBATE DO NOT RESUSCITATE advanced directive. Supportive measures were initiated in the emergency department including IV fluids, electrolyte replacement, antibiotics and comfort measures. She has significant lab abnormalities including multiorgan failure, leukocytosis secondary to sepsis, lactic acidosis, profound metabolic acidosis elevated troponin, and multiorgan failure. She remains bradycardic hypotensive while in the emergency department. She will be admitted for comfort measures and supportive measures including IV fluid and antibiotics. Discussed case with the admitting physician Dr. Garcia who will accept admission. - Lab Data Result diagrams: 08/26/19 17:08 08/26/19 17:08 Lab Results 08/26/19 08/26/19 08/26/19 Range/Units 17: 17:08 17:08 WBC 20.2 H (3.8-10.6) k/uL RBC 3.06 L (3.80-5.40) m/uL Hgb 9.5 L D (11.4-16.0) gm/dL Hct 30.6 L (34.0-46.0) % MCV 100.1 H (80.0-100.0) fL MCH 31.2 (25.0-35.0) pg MCHC 31.1 (31.0-37.0) g/dL RDW 14.5 (11.5-15.5) % Plt Count 104 L (150-450) k/uL Neutrophils % 96 % Lymphocytes % 2 % Monocytes % 1 % Eosinophils % 0 % Basophils % 0 % Neutrophils # 19.4 H (1.3-7.7) k/uL Lymphocytes # 0.4 L (1.0-4.8) k/uL Monocytes # 0.3 (0-1.0) k/uL Eosinophils # 0.1 (0-0.7) k/uL Basophils # 0.0 (0-0.2) k/uL Hypochromasia Marked Macrocytosis Slight PT 20.4 H (9.0-12.0) sec INR 2.1 H (<1.2) APTT 32.1 H (22.0-30.0) sec VBG pH (7.31-7.41) VBG pCO2 (37-51) mmHg VBG HCO3 (24-28) mmol/L Sodium 140 (137-145) mmol/L Potassium 4.0 (3.5-5.1) mmol/L Chloride 119 H (98-107) mmol/L Carbon Dioxide 9 L* (22-30) mmol/L Anion Gap 12 mmol/L BUN 40 H (7-17) mg/dL Creatinine 2.57 H (0.52-1.04) mg/dL Est GFR (CKD-EPI)AfAm 19 (>60 ml/min/1.73 sqM) Est GFR (CKD-EPI)NonAf 17 (>60 ml/min/1.73 sqM) Glucose 115 H (74-99) mg/dL POC Glucose (mg/dL) (75-99) mg/dL POC Glu Biomedical Service Engineer ID Plasma Lactic Acid Amaury (0.7-2.0) mmol/L Calcium 5.9 L* (8.4-10.2) mg/dL Magnesium 1.3 L (1.6-2.3) mg/dL Total Bilirubin 0.6 (0.2-1.3) mg/dL AST 442 H (14-36) U/L ALT 109 H (4-34) U/L Alkaline Phosphatase 53 (38-126) U/L Creatine Kinase (30-135) U/L Total Protein 4.1 L (6.3-8.2) g/dL Albumin 1.7 L (3.5-5.0) g/dL 08/26/19 08/26/19 08/26/19 Range/Units 17:08 17:08 17:16 WBC (3.8-10.6) k/uL RBC (3.80-5.40) m/uL Hgb (11.4-16.0) gm/dL Hct (34.0-46.0) % MCV (80.0-100.0) fL MCH (25.0-35.0) pg MCHC (31.0-37.0) g/dL RDW (11.5-15.5) % Plt Count (150-450) k/uL Neutrophils % % Lymphocytes % % Monocytes % % Eosinophils % % Basophils % % Neutrophils # (1.3-7.7) k/uL Lymphocytes # (1.0-4.8) k/uL Monocytes # (0-1.0) k/uL Eosinophils # (0-0.7) k/uL Basophils # (0-0.2) k/uL Hypochromasia Macrocytosis PT (9.0-12.0) sec INR (<1.2) APTT (22.0-30.0) sec VBG pH 7.15 L* (7.31-7.41) VBG pCO2 33 L (37-51) mmHg VBG HCO3 11 L (24-28) mmol/L Sodium (137-145) mmol/L Potassium (3.5-5.1) mmol/L Chloride (98-107) mmol/L Carbon Dioxide (22-30) mmol/L Anion Gap mmol/L BUN (7-17) mg/dL Creatinine (0.52-1.04) mg/dL Est GFR (CKD-EPI)AfAm (>60 ml/min/1.73 sqM) Est GFR (CKD-EPI)NonAf (>60 ml/min/1.73 sqM) Glucose (74-99) mg/dL POC Glucose (mg/dL) 80 (75-99) mg/dL POC Glu Biomedical Service Engineer ID [email or web address] Plasma Lactic Acid Amaury 4.1 H* (0.7-2.0) mmol/L Calcium (8.4-10.2) mg/dL Magnesium (1.6-2.3) mg/dL Total Bilirubin (0.2-1.3) mg/dL AST (14-36) U/L ALT (4-34) U/L Alkaline Phosphatase (38-126) U/L Creatine Kinase (30-135) U/L Total Protein (6.3-8.2) g/dL Albumin (3.5-5.0) g/dL Critical Care Time Critical Care Time: Yes Total Critical Care Time: 35 Disposition Clinical Impression: Acute renal failure, Sepsis, Rhabdomyolysis, Acidosis, Need for comfort care Disposition: ADMITTED IP TO THIS [facility] Condition: Critical Is patient prescribed a controlled substance at d/c from ED?: No Referrals: Jude Lyles MD [Primary Care Provider] - 1-2 days Decision to Admit Reason: Admit from EC Decision Date: 08/26/19 Decision Time: 18:08
[2019-08-26] MEDS ORDERED: SODIUM CHLORIDE 0.9% 1,000 ML IV ONE (17:00)
[2019-08-26 17:17] LABS: Glucose,Whole Blood 80 mg/dL (75-99)
[2019-08-26] MEDS ORDERED: MORPHINE SULFATE 2 MG/ML SYRINGE IVP STA (17:17)
[2019-08-26] MEDS ORDERED: LORazepam 2 MG/ML INJ IV STA (17:18)
[2019-08-26 17:24] LABS: VBG PH 7.15 (7.31-7.41)
[2019-08-26 17:31] LABS: Albumin 1.7 g/dL (3.5-5.0); Magnesium 1.3 mg/dL (1.6-2.3); Total Bilirubin 0.6 mg/dL (0.2-1.3); Total Protein 4.1 g/dL (6.3-8.2)
[2019-08-26 17:36] LABS: INR 2.1 (<1.2); Partial Thromboplastin Time 32.1 sec (22.0-30.0); Prothrombin Time 20.4 sec (9.0-12.0)
[2019-08-26 17:40] LABS: Basophils % (A) 0 %; Eosinophils # (A) 0.1 k/uL (0-0.7); Eosinophils % (A) 0 %; HCT 30.6 % (34.0-46.0); Hypochromasia Marked; Lymphocytes # (A) 0.4 k/uL (1.0-4.8); Lymphocytes % (A) 2 %; MCH 31.2 pg (25.0-35.0); MCHC 31.1 g/dL (31.0-37.0); MCV 100.1 fL (80.0-100.0); Macrocytosis Slight; Mean Platelet Volume 9.9; Monocytes # (A) 0.3 k/uL (0-1.0); Monocytes % (A) 1 %; Neutrophils # (A) 19.4 k/uL (1.3-7.7); Neutrophils % (A) 96 %; Platelet Count 104 k/uL (150-450); RBC 3.06 m/uL (3.80-5.40); RDW 14.5 % (11.5-15.5); WBC 20.2 k/uL (3.8-10.6)
[2019-08-26] MEDS ORDERED: DEXTROSE 50% SYRINGE 50 ML IVP STA (17:43)
[2019-08-26 17:48] LABS: Calcium 5.9 mg/dL (8.4-10.2)
[2019-08-26 17:51] LABS: HGB 9.5 gm/dL (11.4-16.0)
[2019-08-26] MEDS ORDERED: NALOXONE 0.4 MG/ML 1 ML VIAL IV PRN (18:01)
[2019-08-26] MEDS ORDERED: LORazepam 2 MG/ML INJ IV PRN ×2 (18:01→20:42)
[2019-08-26] MEDS ORDERED: CALCIUM GLUCONATE 1 GM in SODIUM CHLORIDE 0.9% 100 ML IVPB ONE (18:01)
[2019-08-26] MEDS ORDERED: HYDROmorphone 0.5 MG/0.5 ML SYRINGE IVP PRN (18:01)
[2019-08-26] MEDS ORDERED: ONDANSETRON 4 MG/2 ML VIAL IVP PRN (18:01)
[2019-08-26] MEDS ORDERED: HYDROmorphone 1 MG/ML 1 ML SYRINGE IVP PRN (18:01)
[2019-08-26 19:21] VITALS: BP 54/29; PULSE 49
[2019-08-26] MEDS ORDERED: MORPHINE SULFATE (100 MG/2 ML) 100 MG in SODIUM CHLORIDE 0.9% 100 ML IV SCH (20:45)
[2019-08-26] MEDS: SODIUM CHLORIDE 0.9% 1,000 ML IV SCH (21:38)
[2019-08-26 23:33] VITALS: RESP 24
[2019-08-27] MEDS: SODIUM CHLORIDE 0.9% 1,000 ML IV SCH (04:04)
--- NOTE | 2019-08-27 10:55 | P.HPIM ---
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 Patient was in for follow up in the office in June and was doing well at the time still seen her lead medical technologist in [facility] and has been doing slightly bit better with the new biological agent was started on, also patient still on 10 mg of prednisone daily basis. According to family patient talk to them over 8 hours earlier and family has been calling her since with no respond until finally family found her on the floor in her house and responsive 911 was called and patient was transferred to the emergency department at [facility] where was seen and evaluated was very hypotensive nonresponsive had generalized weakness with no focalization at the time. Her lactic acid was very high patient was in acute metabolic acidosis as well she is septic with elevated troponin very low PH level with multiple organs failure at the time. Patient family were giving her choice and decided t o do comfort management at the time. She was transferred to the floor initially on Dilaudid and and Ativan IV push and was switched to morphine drip after long talk with the family. Apparently family decided not to do any further investigation such as CAT scan of the lung or chest x-ray no UA was done at the time. Review of Systems Patient is unresponsive with no sign of any major injury or cough no major trauma or bruises. Past Medical History Past Medical History: Coronary Artery Disease (CAD), Deep Vein Thrombosis (DVT), GERD/Reflux, Hearing Disorder / Deafness, Hyperlipidemia, Hypertension, Pneumonia, Renal Disease, Rheumatoid Arthritis (RA) Additional Past Medical History / Comment(s): L nephrectomy d/t atrophied kidney, R upper pole renal solid mass being monitored, recent admission Feb, 2019 with pyelonephritis/sepsis, past pyelonephritis, rheumatic lung disease, pneumonias-several, pancytopenia, anemia, cardiac murmur, DVT L leg, gallstone, tinnitis/[place] L ear, compression fractures T12, L1-L3, back pain, hysterectomy d/t fibroids. History of Any Multi-Drug Resistant Organisms: None Reported Past Surgical History: Hysterectomy, Joint Replacement, Orthopedic Surgery Additional Past Surgical History / Comment(s): L nephrectomy, total L knee arthroplasty, R hip ORIF with hardware, colonoscopy, bilateral cataract removals/lens implants. Past Anesthesia/Blood Transfusion Reactions: No Reported Reaction, Blood Transfusion Reaction Additional Past Anesthesia/Blood Transfusion Reaction / Comment(s): pt stated that she was given blood before and she went into "pulmonary edema" and infusion was stopped. blood transfusion reaction before 1979 Past Psychological History: No Psychological Hx Reported Additional Psychological History / Comment(s): Pt resides alone. She uses a cane. She drives. Smoking Status: Never smoker Past Alcohol Use History: None Reported Past Drug Use History: None Reported - Past Family History Father Family Medical History: Myocardial Infarction (WA) Additional Family Medical History / Comment(s): Father of a [place] at the age of 85yrs. Sister(s) Family Medical History: Coronary Artery Disease (CAD) Daughter(s) Family Medical History: No Reported History Son(s) Family Medical History: Coronary Artery Disease (CAD) Mother Family Medical History: Congestive Heart Failure (CHF), Coronary Artery Disease (CAD) Additional Family Medical History / Comment(s): Mother of CHF at the age of 67yrs. Brother(s) Family Medical History: Cancer Additional Family Medical History / Comment(s): Brother of throat cancer. Medications and Allergies Home Medications Medication Instructions Recorded Confirmed Type Atenolol [Tenormin] 50 mg PO DAILY #60 tab 09/11/14 04/26/19 Rx predniSONE 5 mg PO DAILY #60 tab 09/11/14 04/26/19 Rx Zolpidem [Ambien] 10 mg PO HS PRN #3 tab 07/07/18 04/26/19 Rx traMADol HCL [Ultram] 50 mg PO Q6HR PRN #12 tablet 07/07/18 04/26/19 Rx Buprenorphine [Buprenorphine 5 1 patch TRANSDERM FR 09/09/18 04/26/19 History MCG/HR] Allopurinol [Zyloprim] 100 mg PO DAILY 03/15/19 04/26/19 History Sodium Bicarbonate Tab 650 mg PO BID #60 tab 03/18/19 04/26/19 Rx Baclofen 10 mg PO BID PRN 04/15/19 04/26/19 History DAPTOmycin [Cubicin] 250 mg IVPB Q24H #10 dose 04/28/19 Rx Cholecalciferol [Vitamin D3 (25 1,000 unit PO DAILY tab 04/29/19 Rx Mcg = 1000 Iu)] Folic Acid 1 mg PO DAILY tab 04/29/19 Rx Allergies Allergy/AdvReac Type Severity Reaction Status Date / Time codeine Allergy Rash/Hives Verified 08/26/19 16:52 nitrofurantoin Allergy Rash/Hives Verified 08/26/19 16:52 macrocrystalline [From Macrodantin] Penicillins Allergy Anaphylaxis Verified 08/26/19 16:52 doxycycline AdvReac Nausea & Verified 08/26/19 16:52 Vomiting Sulfa (Sulfonamide AdvReac Nausea & Verified 08/26/19 16:52 Antibiotics) Vomiting Physical Exam Vitals: Vital Signs Pulse Resp BP Pulse Ox 08/26/19 23:20 24 08/26/19 19:00 49 L 20 54/29 85 L 08/26/19 18:00 41 L 22 43/31 87 L 08/26/19 17:47 54 L 24 65/22 90 L 08/26/19 17:42 91 L 08/26/19 17:30 52 L 26 H 55/36 76 L 08/26/19 17:15 46 L 16 50/26 84 L 08/26/19 17:00 49 L 16 57/32 81 L 08/26/19 16:40 58 L 16 64/35 78 L Intake and Output 08/26/19 08/27/19 08/27/19 22:59 06:59 14:59 Intake Total 0 Balance 0 Intake: Oral 0 Other: # Voids 1 # Bowel Movements 1 Weight 52.254 kg General Appearance: Nonresponsive still have some muscle spasm and looking mild pain. Neck HEENT: Supple, no lymphadenopathy, no thyroid enlargement, no carotid bruits. Lungs: Decreased breath sound bilaterally with fine crackles and rhonchi bilateral lung field. Chest Wall: Decrease expansion with deep inspiration no tenderness and no deformity was found on exam, no costochondral pain or discomfort. Heart: Irregular rate and rhythm, S1, S2 positive S3 positive tachycardia. Back: Symmetric, no curvature, ROM normal, no CVA tenderness. Abdomen: Soft, non-tender, bowel sounds active all four quadrants, no masses, no organomegaly. Extremities: No sign of trauma or bruises multiple advance arthralgia bilaterally in the large joints and the small joints as well. Pulses: 2+ and symmetric. Skin: Skin color, texture, tugor normal, no rashes or lesions. Neurologic: Unresponsive. Results CBC & Chem 7: 08/26/19 17:08 08/26/19 17:08 Labs: Abnormal Lab Results - Last 24 Hours (Table) 08/26/19 08/26/19 08/26/19 Range/Units 17:08 17: 17:08 WBC 20.2 H (3.8-10.6) k/uL RBC 3.06 L (3.80-5.40) m/uL Hgb 9.5 L D (11.4-16.0) gm/dL Hct 30.6 L (34.0-46.0) % MCV 100.1 H (80.0-100.0) fL Plt Count 104 L (150-450) k/uL Neutrophils # 19.4 H (1.3-7.7) k/uL Lymphocytes # 0.4 L (1.0-4.8) k/uL PT 20.4 H (9.0-12.0) sec INR 2.1 H (<1.2) APTT 32.1 H (22.0-30.0) sec VBG pH (7.31-7.41) VBG pCO2 (37-51) mmHg VBG HCO3 (24-28) mmol/L Chloride 119 H (98-107) mmol/L Carbon Dioxide 9 L* (22-30) mmol/L BUN 40 H (7-17) mg/dL Creatinine 2.57 H (0.52-1.04) mg/dL Glucose 115 H (74-99) mg/dL Plasma Lactic Acid Amaury (0.7-2.0) mmol/L Calcium 5.9 L* (8.4-10.2) mg/dL Magnesium 1.3 L (1.6-2.3) mg/dL AST 442 H (14-36) U/L ALT 109 H (4-34) U/L Troponin I (0.000-0.034) ng/mL Total Protein 4.1 L (6.3-8.2) g/dL Albumin 1.7 L (3.5-5.0) g/dL 08/26/19 08/26/19 08/26/19 Range/Units 17:08 17:08 17:08 WBC (3.8-10.6) k/uL RBC (3.80-5.40) m/uL Hgb (11.4-16.0) gm/dL Hct (34.0-46.0) % MCV (80.0-100.0) fL Plt Count (150-450) k/uL Neutrophils # (1.3-7.7) k/uL Lymphocytes # (1.0-4.8) k/uL PT (9.0-12.0) sec INR (<1.2) APTT (22.0-30.0) sec VBG pH 7.15 L* (7.31-7.41) VBG pCO2 33 L (37-51) mmHg VBG HCO3 11 L (24-28) mmol/L Chloride (98-107) mmol/L Carbon Dioxide (22-30) mmol/L BUN (7-17) mg/dL Creatinine (0.52-1.04) mg/dL Glucose (74-99) mg/dL Plasma Lactic Acid Amaury 4.1 H* (0.7-2.0) mmol/L Calcium (8.4-10.2) mg/dL Magnesium (1.6-2.3) mg/dL AST (14-36) U/L ALT (4-34) U/L Troponin I 0.247 H* (0.000-0.034) ng/mL Total Protein (6.3-8.2) g/dL Albumin (3.5-5.0) g/dL Assessment and Plan Assessment: 1 advance multiple organ failure: Most likely secondary to sepsis, and possible stroke and heart attack altogether. Patient is in advance failure at this time family wants to make her comfort care only. 2 severe metabolic acidosis: Most likely secondary to sepsis from UTI and aspiration pneumonia. 3 sepsis: Family doing comfort care no antibiotics this to be done at this point. 4 elevated troponin with most likely non-ST [place] patient is tachycardic as well no further management hour of this dictation on it. 5 acute kidney injury with chronic kidney disease with much worsening kidney function. 6 severe rhabdomyolysis: With severely high CK patient has been unresponsive on the floor for several hours. 7 severe lactic acidosis: Most likely from severe hypotension, sepsis, rhabdomyolysis, acute renal failure and [place]. 8 advanced rheumatoid arthritis: Was on management and treatment by rheumatology. CODE STATUS: DO NOT RESUSCITATE Comfort Care. Family meeting: I had long discussion with 2 of Mrs. Howard daughter decision for comfort care was already made and were agreeable to do morphine drip and Ativan at this point and continue supportive care knowing the extreme high possibility of her passing in the next few hours.
--- NOTE | 2019-08-27 10:58 | P.DS ---
Providers Date of admission: 08/26/19 18:01 Attending physician: Charo Garcia MD Primary care physician: [facility] Course: Chief Complaint: Responsive and ultimately mental status, CVA, sepsis, acute metabolic acido 83-year-old female one of my office patient for the last 25 years with past medical history of seronegative rheumatoid arthritis, hypertension, coronary disease, history of DVT or thrombosis, and stage III chronic kidney disease who had recurrent UTI many times in the last 2 years was in the hospital last time 6 weeks ago with sepsis and UTI treated and done well. Patient was in for follow up in the office in June and was doing well at the time still seen her automatic pinsetter adjuster in [facility] and has been doing slightly bit better with the new biological agent was started on, also patient still on 10 mg of prednisone daily basis. According to family patient talk to them over 8 hours earlier and family has been calling her since with no respond until finally family found her on the floor in her house and responsive 911 was called and patient was transferred to the emergency department at [facility] where was seen and evaluated was very hypotensive nonresponsive had generalized weakness with no focalization at the time. Her lactic acid was very high patient was in acute metabolic acidosis as well she is septic with elevated troponin very low PH level with multiple organs failure at the time. Patient family were giving her choice and decided to do comfort management at the time. She was transferred to the floor initially on Dilaudid and and Ativan IV push and was switched to morphine drip after long talk with the family. Apparently family decided not to do any further investigation such as CAT scan of the lung or chest x-ray no UA was done at the time. Review of Systems Patient is unresponsive with no sign of any major injury or cough no major trauma or bruises. Physical Exam Vitals: General Appearance: Nonresponsive still have some muscle spasm and looking mild pain. Neck HEENT: Supple, no lymphadenopathy, no thyroid enlargement, no carotid bruits. Lungs: Decreased breath sound bilaterally with fine crackles and rhonchi bilateral lung field. Chest Wall: Decrease expansion with deep inspiration no tenderness and no deformity was found on exam, no costochondral pain or discomfort. Heart: Irregular rate and rhythm, S1, S2 positive S3 positive tachycardia. Back: Symmetric, no curvature, ROM normal, no CVA tenderness. Abdomen: Soft, non-tender, bowel sounds active all four quadrants, no masses, no organomegaly. Extremities: No sign of trauma or bruises multiple advance arthralgia bilaterally in the large joints and the small joints as well. Pulses: 2+ and symmetric. Skin: Skin color, texture, tugor normal, no rashes or lesions. Neurologic: Unresponsive. Assessment and Plan Assessment: 1 advance multiple organ failure: Most likely secondary to sepsis, and possible stroke and heart attack altogether. Patient is in advance failure at this time family wants to make her comfort care only. 2 severe metabolic acidosis: Most likely secondary to sepsis from UTI and aspiration pneumonia. 3 sepsis: Family doing comfort care no antibiotics this to be done at this point. 4 elevated troponin with most likely non-ST SC patient is tachycardic as well no further management hour of this dictation on it. 5 acute kidney injury with chronic kidney disease with much worsening kidney function. 6 severe rhabdomyolysis: With severely high CK patient has been unresponsive on the floor for several hours. 7 severe lactic acidosis: Most likely from severe hypotension, sepsis, rhabdomyolysis, acute renal failure and SC. 8 advanced rheumatoid arthritis: Was on management and treatment by rheumatology. CODE STATUS: DO NOT RESUSCITATE Comfort Care. Family meeting: I had long discussion with 2 of Mrs. Howard daughter decision for comfort care was already made and were agreeable to do morphine drip and Ativan at this point and continue supportive care knowing the extreme high possibility of her passing in the next few hours. With comfort and supportive care patient past around 4:30 in the morning on 08/27/2019. Patient Condition at Discharge: Critical Plan - Discharge Summary New Discharge Prescriptions: No Action predniSONE 5 mg PO DAILY #60 tab Atenolol [Tenormin] 50 mg PO DAILY #60 tab Zolpidem [Ambien] 10 mg PO HS PRN #3 tab PRN Reason: insomnia traMADol HCL [Ultram] 50 mg PO Q6HR PRN #12 tablet PRN Reason: Pain Buprenorphine [Buprenorphine 5 MCG/HR] 1 patch TRANSDERM FR Allopurinol [Zyloprim] 100 mg PO DAILY Sodium Bicarbonate Tab 650 mg PO BID #60 tab Baclofen 10 mg PO BID PRN PRN Reason: muscle spasms DAPTOmycin [Cubicin] 250 mg IVPB Q24H #10 dose Folic Acid 1 mg PO DAILY tab Cholecalciferol [Vitamin D3 (25 Mcg = 1000 Iu)] 1,000 unit PO DAILY tab Discharge Medication List Atenolol [Tenormin] 50 mg PO DAILY #60 tab 09/11/14 [Rx] predniSONE 5 mg PO DAILY #60 tab 09/11/14 [Rx] Zolpidem [Ambien] 10 mg PO HS PRN #3 tab 07/07/18 [Rx] traMADol HCL [Ultram] 50 mg PO Q6HR PRN #12 tablet 07/07/18 [Rx] Buprenorphine [Buprenorphine 5 MCG/HR] 1 patch TRANSDERM FR 09/09/18 [History] Allopurinol [Zyloprim] 100 mg PO DAILY 03/15/19 [History] Sodium Bicarbonate Tab 650 mg PO BID #60 tab 03/18/19 [Rx] Baclofen 10 mg PO BID PRN 04/15/19 [History] DAPTOmycin [Cubicin] 250 mg IVPB Q24H #10 dose 04/28/19 [Rx] Cholecalciferol [Vitamin D3 (25 Mcg = 1000 Iu)] 1,000 unit PO DAILY tab 04/29/19 [Rx] Folic Acid 1 mg PO DAILY tab 04/29/19 [Rx] Follow up Appointment(s)/Referral(s): Jude Lyles MD [Primary Care Provider] - 1-2 days Discharge Disposition: - Preliminary Cause of Preliminary Cause of : Sepsis, acute kidney failure, NSTEMI, and possible stroke
--- NOTE | 2019-08-30 15:42 | CDI ---
Documentation Clarification Form Date: 08/30/19 From: Bailey Boone CCS Phone: If you have a question about this query, please contact Rossy Alvarado, Private Banker at [phone] between 8am and 5pm. Admit Date: 08/26/19 Discharge Date:08/27/19 Patient Name: Malika Howard Visit Number: [id number] ATTENTION: The Clinical Documentation Specialists (CDI) and [facility] Coding Staff appreciate your assistance in clarifying documentation. Please respond to the clarification below the line at the bottom and electronically sign. The CDI & [facility] Coding staff will review the response and follow-up if needed. Please note: Queries are made part of the Legal Health Record. If you have any questions, please contact the author of this message via ITS. Dear Dr. Lyles, Myocardial infarction is documented in the: H&P, DS Patient History/Risk Factors: Sepsis, RIVERA, UTI, PNA, Hyptension, CVA Clinical Indicators: Unresponsive, Multi Organ Failure Troponin: 0.247 EKG Results: Sinus Bradycardia Treatment: Patient made comfort care, DNR, In order to capture the severity of condition and necessary documentation specificity, please clarify: Type of Infarction: [place] Type II due to sepsis [place] Type II due to xx NSTEMI Unable to determine Other Condition, please specify MTDD
--- NOTE | 2019-08-30 15:52 | CDI ---
Documentation Clarification Form Date: 08/30/19 From: Bailey Boone CCS Phone: If you have a question about this query, please contact Rossy Alvarado, Secretary Of State at [phone] between 8am and 5pm. Admit Date: 08/26/19 Discharge Date:08/27/19 Patient Name: Malika Howard Visit Number: [id number] ATTENTION: The Clinical Documentation Specialists (CDI) and [facility] Coding Staff appreciate your assistance in clarifying documentation. Please respond to the clarification below the line at the bottom and electronically sign. The CDI & [facility] Coding staff will review the response and follow-up if needed. Please note: Queries are made part of the Legal Health Record. If you have any questions, please contact the author of this message via ITS. Dear Dr. Lyles, The patient presented with the sepsis, hypotension, multi organ failure. History/Risk Factors: Sepsis, Hypotension, Multi Organ Failure, CVA, NSTEMI, RIVERA, Unresponsive Clinical Indicators: Multi Organ Failure Lab findings: WBC 20.2, Lactic Acid 4.1 Vital Signs: BP 65/22, DC 54, RR 24, O2 Sat 90 Treatment: Palliative care, DNR, In your professional opinion, can you please clarify the diagnosis if any for the above? xx Septic Shock Hypovolemic shock Shock due to Cardiogenic shock Hypotension Other, please specify Unable to determine MTDD
--- NOTE | 2019-08-30 16:02 | CDI ---
Documentation Clarification Form Date: 08/30/19 From: Bailey Boone CCS Phone: If you have a question about this query, please contact Rossy Alvarado, Certified Income Tax Preparer at [phone] between 8am and 5pm. Admit Date: 08/26/19 Discharge Date:08/27/19 Patient Name: Malika Howard Visit Number: [id number] ATTENTION: The Clinical Documentation Specialists (CDI) and [facility] Coding Staff appreciate your assistance in clarifying documentation. Please respond to the clarification below the line at the bottom and electronically sign. The CDI & [facility] Coding staff will review the response and follow-up if needed. Please note: Queries are made part of the Legal Health Record. If you have any questions, please contact the author of this message via ITS. Dear Dr. Lyles, Altered Mental Status/ unresponsive is documented in the ED, H&P, DS. History/Risk Factors: Severe sepsis, CVA, RIVERA, Asp PNA, NSTEMI, UTI Clinical Indicators: Unresponsive Labs: WBC 20.2, Lactic Acid: 4.1 Treatment: Palliative care, DNR, In your professional opinion, please clarify the etiology of the Altered Mental Status, if known. Delirium (specify cause): _Sepsis Encephalopathy (specify Type and Underlying Medical Illness) Other condition (please specify) Unable to determine MTDD
--- NOTE | 2019-09-02 11:36 | CDI ---
Documentation Clarification Form Date: 09/02/2019 11:23:49 AM From: Manuela EchevarriaDREW miranda, CCDS Admit Date: 08/26/2019 06:01:00 PM Patient Name: Malika Howard Visit Number: [id number] Discharge Date/Expiration: 08/27/2019 06:21:00 AM ATTENTION: The Clinical Documentation Specialists (CDI) and [facility] Coding Staff appreciate your assistance in clarifying documentation. Please respond to the clarification below the line at the bottom and electronically sign. The CDI & [facility] Coding staff will review the response and follow-up if needed. Please note: Queries are made part of the Legal Health Record. If you have any questions, please contact the author of this message via ITS. Dr. Jude Lyles: 83 yo female, presented to via EMS on 08/25 with altered mental status, minimally responsive by family, possibly on floor approx. 8 hours. EMS put on NRB w/agonal respirations. History/Risk Factors: CAD, DVT, Pneumonia, Lt nephrectomy, Recurrent Pyelonephritis. Clinical Indicators: Presented as above. Per H/P on 08/25, diagnosed with Sepsis, UTI, Acute renal failure Rhabdomyolysis, Acidosis, Aspiration Pneumonia, Possible CVA & NSTEMI, Multiorgan Failure. VS: P 58*, BP 64/35*, PO 78 on nrb-81 2Lnc LAB 08/25: WBC 20.2^, Hgb 9.5*, Pl Ct 104*, Neut 19.4^, CO2 9, BUN 40^, Cr 2.57^, LA 4.1^^, Celso 5.9, Trop 0.247^^. ABG: pH 7.15, pCO2 33*, HCO3 11*. PCD: Sepsis, RIVERA, NSTEMI & possible stroke Treatment: IV fluid bolus 1,000 mls @ 999 mls/hr x2, IV Morphine Sulfate, IV Ativan, IV Dextrose, IV Calcium Gluconate, IV Dilaudid. Pt was confirmed DNR, admitted for comfort measures. Nrb changed to 2Lnc, <24 hrs from admission. PCD: Sepsis, RIVERA, NSTEMI & poss stroke In your professional opinion, can you please clarify if these findings signify one of the following conditions? Acute Respiratory Failure Acute Respiratory Distress Other Diagnosis, please specify Unable to determine Specificity: If known, further specify (if known): With hypercapnia? (pCO2 >50 and pH <7.35) With hypoxia? (pO2 <60 mm Hg or SpO2 <91% on room air) (Last Query Form Revision: December 2018) acute hypoxic and hypercapnic respiratory failure - poa MTDD
--- NOTE | 2019-09-02 12:01 | CDI ---
Documentation Clarification Form Date: 09/02/2019 11:58:38 AM From: Manuela De La TorreEchevarriaDREW, CCDS Admit Date: 08/26/2019 06:01:00 PM Patient Name: Malika Howard Visit Number: [id number] Discharge Date: 08/27/2019 06:21:00 AM ATTENTION: The Clinical Documentation Specialists (CDI) and [facility] Coding Staff appreciate your assistance in clarifying documentation. Please respond to the clarification below the line at the bottom and electronically sign. The CDI & [facility] Coding staff will review the response and follow-up if needed. Please note: Queries are made part of the Legal Health Record. If you have any questions, please contact the author of this message via ITS. Dr. Jude Lyles: Coding guidelines do not allow coding professionals to code based on laboratory results; therefore, your input is requested. The COVID-19 test obtained on 08/26/2019 was reported as Negative on 08/26/2019. Per case summary: 83 yo female presented to the ED via EMS after being found on the floor for an unknown length of time by family. Diagnosed with Multiorgan failure including acute renal failure, Sepsis, Septic Shock, N-STEMI, possible CVA, Aspiration Pneumonia & Rhabdomyolysis. Patient was confirmed as DNR & <24 after admission. Patient history/risk factors: Recurrent Pyelonephritis, Left nephrectomy, Hypertensive CKD stage 3 & CAD. Clinical Indicators: Presented as above. COVID test 08/25: Negative CXR: No CXR done Vitals signs on admission: P 58*, R 16, BP 64/35*, PO 78 nrb WBC: 20.2 Treatment: IV fluid bolus x2: 1,000 mls @ 999 mls/hr, IV Levaquin, IV Morphine, IV Ativan, IV Dextrose, IV Calcium Gluconate, IV Dilaudid. NRB changed to 2Lnc due to DNR. In order to capture the severity of condition, please clarify the COVID-19 status: COVID-19 ruled out Other, please specify: Unable to determine (Last Form Revision: June 2019) [facility]-19 [facility] out MTDD
== END 2019-08-27 06:21 | disposition expired | DRG 871 ==
LOC: EC 16:35 → 5NMEDONC 18:01
PROVIDERS: ADMIT Internal Medicine; ATTEND Internal Medicine
DX: A41.9 Sepsis, unspecified organism (principal); I63.9 Cerebral infarction, unspecified; R40.2222 Coma scale, best verbal response, incomprehensible words, at arrival to emergency department; J69.0 Pneumonitis due to inhalation of food and vomit; I21.4 Non-ST elevation (NSTEMI) myocardial infarction; R65.21 Severe sepsis with septic shock; J96.01 Acute respiratory failure with hypoxia; J96.02 Acute respiratory failure with hypercapnia; N17.9 Acute kidney failure, unspecified; E87.2 Acidosis; M62.82 Rhabdomyolysis; F05 Delirium due to known physiological condition; N12 Tubulo-interstitial nephritis, not specified as acute or chronic; N39.0 Urinary tract infection, site not specified; Z20.828 Contact with and (suspected) exposure to other viral communicable diseases; D63.1 Anemia in chronic kidney disease; N18.3 Chronic kidney disease, stage 3 (moderate); I95.9 Hypotension, unspecified; Z51.5 Encounter for palliative care; Z66 Do not resuscitate; M06.00 Rheumatoid arthritis without rheumatoid factor, unspecified site; I25.10 Atherosclerotic heart disease of native coronary artery without angina pectoris; I12.9 Hypertensive chronic kidney disease with stage 1 through stage 4 chronic kidney disease, or unspecified chronic kidney disease; H91.90 Unspecified hearing loss, unspecified ear; E78.5 Hyperlipidemia, unspecified; K21.9 Gastro-esophageal reflux disease without esophagitis; R40.2142 Coma scale, eyes open, spontaneous, at arrival to emergency department; R41.82 Altered mental status, unspecified; R40.2352 Coma scale, best motor response, localizes pain, at arrival to emergency department; N28.89 Other specified disorders of kidney and ureter; R00.1 Bradycardia, unspecified; Z87.440 Personal history of urinary (tract) infections; Z79.899 Other long term (current) drug therapy; Z79.52 Long term (current) use of systemic steroids; Z87.01 Personal history of pneumonia (recurrent); Z90.710 Acquired absence of both cervix and uterus; Z90.5 Acquired absence of kidney; Z87.311 Personal history of (healed) other pathological fracture; Z98.42 Cataract extraction status, left eye; Z98.41 Cataract extraction status, right eye; Z96.1 Presence of intraocular lens; Z96.652 Presence of left artificial knee joint; Z96.7 Presence of other bone and tendon implants; Z86.718 Personal history of other venous thrombosis and embolism; Z87.19 Personal history of other diseases of the digestive system; Z88.1 Allergy status to other antibiotic agents; Z88.5 Allergy status to narcotic agent; Z88.0 Allergy status to penicillin; Z88.2 Allergy status to sulfonamides; Z88.8 Allergy status to other drugs, medicaments and biological substances; Z82.49 Family history of ischemic heart disease and other diseases of the circulatory system; Z82.5 Family history of asthma and other chronic lower respiratory diseases; Z80.0 Family history of malignant neoplasm of digestive organs
CPT/HCPCS: 36415; 80053; 82550; 82803; 83605; 83735; 84484; 85025; 85610; 85730; 87635; 93005; 96361; 96365; 96375; 99291